=== PATIENT | male | born 1955 | race Caucasian/White ===

== ENCOUNTER 2016-07-07 12:25 | Emergency (ER) | payer BC ==
[2016-07-07 12:30] VITALS: TEMP 97.6
[2016-07-07] MEDS ORDERED: SODIUM CHLORIDE 0.9% 1,000 ML IV STA (12:45)
[2016-07-07] MEDS ORDERED: MAG HYDROX/AL HYDROX/SIMETH 30 ML, HYOSCYAMINE ELIXIR 10 ML, CIMETIDINE HCL 300 MG, LID... PO STA ×4 (12:46)
--- NOTE | 2016-07-07 12:49 | ED ---
Abdominal Pain HPI - General Chief Complaint: Abdominal Pain Stated Complaint: Indigestion Time Seen by Provider: 07/07/16 12:35 Source: patient Mode of arrival: ambulatory - History of Present Illness Initial Comments: This is a 60-year-old male with a benign past history who states he had the onset of indigestion-like pain short time after eating a breakfast this morning. This did include maurice and sausage. He states it radiates from his epigastrium up to his throat midsternal incision indigestion-like discomfort 8/ 10 severity he states been having symptoms on and off for the past week of this type of thing he was low short of breath with it no fevers chills sweats or other symptoms he has had no cough he states he gets somewhat worse with upright position. He has no personal history of heart lung or kidney or liver disease no gallbladder disease and he is aware of he is a nonsmoker does not drink alcohol very often does have a family history however his dad had a heart attack at 57 his mother at 86. MD Complaint: abdominal pain, other - Related Data Home Medications Medication Instructions Recorded Confirmed Simvastatin [Zocor] 20 mg PO HS 08/10/15 07/07/16 Cholecalciferol [Vitamin D3] 1,000 unit PO DAILY 07/07/16 07/07/16 Levothyroxine Sodium [Synthroid] 137 mcg PO DAILY 07/07/16 07/07/16 [place]-3 Fatty Acids/Fish Oil [Fish 1 cap PO DAILY 07/07/16 07/07/16 Oil 1,000 mg Softgel] Previous Rx's Medication Instructions Recorded Pantoprazole Sodium [Protonix] 40 mg PO DAILY #10 tablet. 07/07/16 Allergies Allergy/AdvReac Type Severity Reaction Status Date / Time No Known Allergies Allergy Verified 07/07/16 12:53 Review of Systems ROS Statement: Those systems with pertinent positive or pertinent negative responses have been documented in the HPI. ROS Other: All systems not noted in ROS Statement are negative. Past Medical History Past Medical History: Hyperlipidemia, Thyroid Disorder History of Any Multi-Drug Resistant Organisms: None Reported Past Surgical History: No Surgical Hx Reported Past Anesthesia/Blood Transfusion Reactions: No Reported Reaction Past Psychological History: No Psychological Hx Reported Smoking Status: Never smoker Past Alcohol Use History: Rare Past Drug Use History: None Reported - Past Family History Mother Family Medical History: Cancer Sister(s) Family Medical History: Cancer Daughter(s) Family Medical History: Deep Vein Thrombosis (DVT) General Exam - General Exam Comments Initial Comments: This is a well-developed well-nourished awake alert oriented x 3 male General appearance: alert, in no apparent distress Head exam: Present: atraumatic, normocephalic, normal inspection Eye exam: Present: normal appearance, PERRL, EOMI. Absent: scleral icterus, conjunctival injection, periorbital swelling ENT exam: Present: normal exam, mucous membranes moist Neck exam: Present: normal inspection. Absent: tenderness, meningismus, lymphadenopathy Respiratory exam: Present: normal lung sounds bilaterally. Absent: respiratory distress, wheezes, rales, rhonchi, stridor Cardiovascular Exam: Present: regular rate, normal rhythm, normal heart sounds. Absent: systolic murmur, diastolic murmur, rubs, gallop, clicks GI/Abdominal exam: Present: soft, tenderness (Epigastric tenderness palpation no guarding rebound masses or bruits), normal bowel sounds. Absent: distended, guarding, rebound, rigid Extremities exam: Present: normal inspection, full ROM, normal capillary refill. Absent: tenderness, pedal edema, joint swelling, calf tenderness Back exam: Present: normal inspection Neurological exam: Present: alert, oriented X3, CN II-XII intact Psychiatric exam: Present: normal affect, normal mood Skin exam: Present: warm, dry, intact, normal color. Absent: rash Course Vital Signs 07/07/16 07/07/16 12:27 14:14 Temperature 97.6 F Pulse Rate 101 H 88 Respiratory 22 18 Rate Blood Pressure 142/90 136/82 O2 Sat by Pulse 98 97 Oximetry - Reevaluation(s) Reevaluation #1: 07/07/16 14:36 Patient had complete relief after the GI cocktail. Medical Decision Making - Medical Decision Making I did a long discussion with the patient has regarding findings. Patient will be discharged with follow-up with his doctor did recommend an outpatient stress test did discuss the differential diagnosis for his pain which included a heart disease gallbladder and GI disease. - Lab Data Result diagrams: 07/07/16 12:35 07/07/16 12:35 Lab Results 07/07/16 07/07/16 07/07/16 Range/Units 12:35 12:35 12:35 WBC 5.6 (3.8-10.6) k/uL RBC 4.81 (4.30-5.90) m/uL Hgb 15.1 (13.0-17.5) gm/dL Hct 43.3 (39.0-53.0) % MCV 89.9 (80.0-100.0) fL MCH 31.3 (25.0-35.0) pg MCHC 34.8 (31.0-37.0) g/dL RDW 12.5 (11.5-15.5) % Plt Count 288 (150-450) k/uL Neutrophils % 59 % Lymphocytes % 28 % Monocytes % 6 % Eosinophils % 3 % Basophils % 1 % Neutrophils # 3.3 (1.3-7.7) k/uL Lymphocytes # 1.5 (1.0-4.8) k/uL Monocytes # 0.3 (0-1.0) k/uL Eosinophils # 0.2 (0-0.7) k/uL Basophils # 0.1 (0-0.2) k/uL Sodium 143 (137-145) mmol/L Potassium 4.6 (3.5-5.1) mmol/L Chloride 107 (98-107) mmol/L Carbon Dioxide 25 (22-30) mmol/L Anion Gap 11 mmol/L BUN 18 (9-20) mg/dL Creatinine 0.90 (0.66-1.25) mg/dL Est GFR (MDRD) Af Amer >60 (>60 ml/min/1.73 sqM) Est GFR (MDRD) Non-Af >60 (>60 ml/min/1.73 sqM) Glucose 119 H (74-99) mg/dL Calcium 9.9 (8.4-10.2) mg/dL Total Bilirubin 0.5 (0.2-1.3) mg/dL AST 37 (17-59) U/L ALT 62 (21-72) U/L Alkaline Phosphatase 54 (38-126) U/L Total Creatine Kinase 86 (55-170) U/L CK-MB (CK-2) 1.2 (0.0-2.4) ng/mL CK-MB (CK-2) Rel Index 1.4 Troponin I 0.019 (0.000-0.034) ng/mL Total Protein 7.1 (6.3-8.2) g/dL Albumin 4.2 (3.5-5.0) g/dL Amylase 82 (30-110) U/L Lipase 112 (23-300) U/L - EKG Data -: EKG Interpreted by Me EKG shows normal: sinus rhythm, axis, intervals, QRS complexes, ST-T waves (EKG shows a normal sinus rhythm rate of 96 NJ interval of 140 QRS duration 90 QT/ QTC of 350/442 st-t wave changes.) Rate: normal - Radiology Data Radiology results: report reviewed (X-rays were reviewed no acute findings.), image reviewed Disposition Clinical Impression: Abdominal pain, Gastritis Disposition: HOME SELF-CARE Condition: Good Instructions: Abdominal Pain (ED), Gastritis (ED) Prescriptions: Pantoprazole Sodium [Protonix] 40 mg PO DAILY #10 tablet.
--- NOTE | 2016-07-07 13:35 | XR ---
EXAMINATION TYPE: XR chest 2V DATE OF EXAM: 07/07/2016 1:25 PM COMPARISON: Prior chest x-ray November 06, 2012 HISTORY: Chest and abdominal pain TECHNIQUE: Frontal and lateral views of the chest are obtained. FINDINGS: There is no focal air space opacity, pleural effusion, or pneumothorax seen. The cardiac silhouette size is within normal limits. The osseous structures are intact. IMPRESSION: No acute cardiopulmonary process. No significant change from prior.
--- NOTE | 2016-07-07 13:37 | XR ---
EXAMINATION TYPE: XR KUB DATE OF EXAM: 07/07/2016 1:25 PM CLINICAL HISTORY: Mid abdominal pain radiating to lower chest for 2 hours after eating. TECHNIQUE: 2 upright KUB images of the abdomen are obtained COMPARISON: None. FINDINGS: Scattered gas is seen in non-distended small bowel loops. Gas and fecal material is seen in non-distended colon and rectum. There is no visceromegaly, pneumoperitoneum, or abnormal calcifi cation appreciated. The lung bases are clear. Mild joint space loss and spurring in both hip joints is redemonstrated. IMPRESSION: Overall nonobstructive bowel gas pattern.
[2016-07-07 13:43] LABS: Basophils # (A) 0.1 k/uL (0-0.2); Basophils % (A) 1 %; CH 31.7; CHCM 35.4; Eosinophils # (A) 0.2 k/uL (0-0.7); Eosinophils % (A) 3 %; HCT 43.3 % (39.0-53.0); HDW 2.53; HGB 15.1 gm/dL (13.0-17.5); Luc % (Auto) 4; Lymphocytes # (A) 1.5 k/uL (1.0-4.8); Lymphocytes % (A) 28 %; MCH 31.3 pg (25.0-35.0); MCHC 34.8 g/dL (31.0-37.0); MCV 89.9 fL (80.0-100.0); Mean Platelet Volume 7.4; Monocytes # (A) 0.3 k/uL (0-1.0); Monocytes % (A) 6 %; Neutrophils # (A) 3.3 k/uL (1.3-7.7); Neutrophils % (A) 59 %; RBC 4.81 m/uL (4.30-5.90); RDW 12.5 % (11.5-15.5); WBC 5.6 k/uL (3.8-10.6); WBC (Perox) 5.47
[2016-07-07 13:55] LABS: ALT 62 U/L (21-72); AST 37 U/L (17-59); Alkaline Phosphatase 54 U/L (38-126); Amylase 82 U/L (30-110); Anion Gap 11 mmol/L; Blood Urea Nitrogen 18 mg/dL (9-20); Calcium 9.9 mg/dL (8.4-10.2); Carbon Dioxide 25 mmol/L (22-30); Chloride 107 mmol/L (98-107); Glucose 119 mg/dL (74-99); Non-African American GFR(MDRD) >60 (>60 ml/min/1.73 sqM); Sodium 143 mmol/L (137-145); Total Bilirubin 0.5 mg/dL (0.2-1.3); Total Protein 7.1 g/dL (6.3-8.2)
[2016-07-07 14:05] LABS: Potassium 4.6 mmol/L (3.5-5.1)
[2016-07-07 14:11] LABS: Creatine Kinase MB 1.2 ng/mL (0.0-2.4)
[2016-07-07 14:15] VITALS: RESP 18
[2016-07-07 14:15] LABS: Troponin I 0.019 ng/mL (0.000-0.034)
[2016-07-07 14:51] VITALS: BP 125/79; PULSE 83
== END 2016-07-07 14:51 | disposition home or self-care (01) ==
LOC: EC 12:25
DX: K29.70 Gastritis, unspecified, without bleeding (principal); E78.5 Hyperlipidemia, unspecified; E07.9 Disorder of thyroid, unspecified; Z79.899 Other long term (current) drug therapy
CPT/HCPCS: 36415; 71020; 74000; 80053; 82150; 82550; 82553; 83690; 84484; 85025; 93005; 96360; 96361; 99284

== ENCOUNTER → 2016-07-25 | Outpatient (CLI) | payer BC | LOC: LABWHC1 14:13 | PROVIDERS: ATTEND Family Medicine | DX: R07.9 Chest pain, unspecified (principal) | CPT/HCPCS: 36415; 83090; 84439; 84443; 85384; 86141 ==

== ENCOUNTER → 2016-07-31 | Outpatient (CLI) | payer BC ==
--- NOTE | 2016-07-31 10:51 | NM ---
EXAMINATION TYPE: NM stress cardiolite complete DATE OF EXAM: 07/31/2016 10:38 AM COMPARISON: 05/31/2008 HISTORY: 60 year-old male chest pain, family history of ischemic heart disease. TECHNIQUE: After the intravenous administration of 10.8 mCi Tc 99m Sestamibi - Rest images obtained 45 minutes post injection. The patient exercised using a AILEEN protocol and 1 minute prior to peak exercise was injected with 27.5 mCi Tc 99m Sestamibi - Stress images obtained 10 minutes post injecti on. FINDINGS: Targeted heart rate was achieved during performance of the study. Review of stress and rest SPECT [email or web address] ges demonstrates no distinct perfusion abnormality. Gated analysis shows normal wall motion with an estimated left ventricular ejection fraction of 60 %.TID is calculated at 0.81, within normal limits. Polar maps are normal. IMPRESSION: No scintigraphic evidence for reversible ischemia
--- NOTE | 2016-07-31 11:21 | EST ---
DATE OF SERVICE: 07/31/2016 AGE: 60Y SEX: M HT: 6' WT: 198 lbs. Protocol Kobe: X Other: Stage: II Dur. of Exercise: 6:30 *Heart Rate Blood Pressure *Rest: 79 Rest: 142/94 * *Max. Achieved: 140 Maximum BP: 162/68 85% PMHR: 134 100% PMHR: 158 *METS: 7.1 INDICATIONS: Chest pain. MEDICATIONS: Patient was exercised for a total period of 6 minutes and 30 seconds. Peak heart rate of 140 was achieved. Maximum blood pressure of 162/68 mmHg is noted. The patient did not complain of any chest pain during the test. Resting EKG shows normal sinus rhythm, R wave noted in V1 and V2. No ST segment depression suggestive of ischemia is noted. ( ) PVCs were noted. The patient did not complain of any chest pain during the test. FINAL IMPRESSION: 1. This exercise EKG is not suggestive of ischemia. 2. Patient's exercise tolerance is average. 3. Occasional premature ventricular contractions were noted. 4. Patient did not complain of any chest pain during the test. 5. The results of the nuclear study will follow.
== END | disposition home or self-care (01) ==
LOC: RADNMMAIN 08:33
PROVIDERS: ATTEND Family Medicine
DX: I49.3 Ventricular premature depolarization (principal); K21.9 Gastro-esophageal reflux disease without esophagitis; R07.9 Chest pain, unspecified; Z82.49 Family history of ischemic heart disease and other diseases of the circulatory system
CPT/HCPCS: 93017; 78452; A9500

== ENCOUNTER 2016-09-28 10:43 | Emergency (ER) | payer BC ==
--- NOTE | 2016-09-28 11:08 | ED ---
General Adult HPI - General Chief complaint: Chest Pain Stated complaint: SOB/Dizziness Time Seen by Provider: 09/28/16 10:45 Source: patient, RN notes reviewed, old records reviewed Mode of arrival: wheelchair Limitations: no limitations - History of Present Illness Initial comments: This is a 60-year-old male here for evaluation of chest pain shortness of breath. An 8 assertion no episode of dyspnea. Patient has medical history of a similar issue in the past with unknown cause. Patient has no heart disease or risk factors of heart disease has had stressing Heart catheterizations in the past have been normal. Patient states he was doing some physical exertion, more than normal D fence posts and became short of breath with chest pain. This time patient's symptoms are resolved. He denies any other complaints. - Related Data Home Medications Medication Instructions Recorded Confirmed Cholecalciferol [Vitamin D3] 1,000 unit PO DAILY 07/07/16 09/28/16 Levothyroxine Sodium [Synthroid] 137 mcg PO DAILY 07/07/16 09/28/16 [place]-3 Fatty Acids/Fish Oil [Fish 1 cap PO DAILY 07/07/16 09/28/16 Oil 1,000 mg Softgel] Esomeprazole Magnesium [NexIUM 22.3 mg PO DAILY 09/28/16 09/28/16 24Hr] Garlic 1 tab PO DAILY 09/28/16 09/28/16 Allergies Allergy/AdvReac Type Severity Reaction Status Date / Time No Known Allergies Allergy Verified 09/28/16 13:13 Review of Systems ROS Statement: Those systems with pertinent positive or pertinent negative responses have been documented in the HPI. ROS Other: All systems not noted in ROS Statement are negative. Past Medical History Past Medical History: Hyperlipidemia, Thyroid Disorder History of Any Multi-Drug Resistant Organisms: None Reported Past Surgical History: No Surgical Hx Reported Past Anesthesia/Blood Transfusion Reactions: No Reported Reaction Past Psychological History: No Psychological Hx Reported Smoking Status: Never smoker Past Alcohol Use History: Rare Past Drug Use History: None Reported - Past Family History Mother Family Medical History: Cancer Sister(s) Family Medical History: Cancer Daughter(s) Family Medical History: Deep Vein Thrombosis (DVT) General Exam Limitations: no limitations General appearance: alert, in no apparent distress Head exam: Present: atraumatic, normocephalic, normal inspection Eye exam: Present: normal appearance, PERRL, EOMI. Absent: scleral icterus, conjunctival injection, periorbital swelling ENT exam: Present: normal exam, mucous membranes moist Neck exam: Present: normal inspection. Absent: tenderness, meningismus, lymphadenopathy Respiratory exam: Present: normal lung sounds bilaterally. Absent: respiratory distress, wheezes, rales, rhonchi, stridor Cardiovascular Exam: Present: regular rate, normal rhythm, normal heart sounds. Absent: systolic murmur, diastolic murmur, rubs, gallop, clicks GI/Abdominal exam: Present: soft, normal bowel sounds. Absent: distended, tenderness, guarding, rebound, rigid Extremities exam: Present: normal inspection, full ROM, normal capillary refill. Absent: tenderness, pedal edema, joint swelling, calf tenderness Back exam: Present: normal inspection Neurological exam: Present: alert, oriented X3, CN II-XII intact Psychiatric exam: Present: normal affect, normal mood Skin exam: Present: warm, dry, intact, normal color. Absent: rash Course Vital Signs 09/28/16 09/28/16 09/28/16 11:01 11:30 13:28 Temperature 97.7 F Pulse Rate 87 73 74 Respiratory 20 20 18 Rate Blood Pressure 144/72 129/79 133/79 O2 Sat by Pulse 100 100 100 Oximetry - Reevaluation(s) Reevaluation #1: 09/28/16 14:45 Patient is asymptomatic throughout entire ER stay, states after rest he felt fine EKG Findings - EKG Comments: EKG Findings:: EKG shows a sinus rhythm rate of 82, MO 140, QRS 90, QTc 464 Medical Decision Making - Medical Decision Making 60 mallei are for evaluation. Patient is here for evaluation of chest pain exertional dyspnea. Patient is a asymptomatic throughout entire ER stay, laboratory is normal EKG negative and CT is negative for PE. Patient will be discharged - Lab Data Result diagrams: 09/28/16 11:25 09/28/16 11:25 Lab Results 09/28/16 09/28/16 09/28/16 Range/Units 11:25 11:25 11:25 WBC 6.5 (3.8-10.6) k/uL RBC 4.95 (4.30-5.90) m/uL Hgb 15.4 (13.0-17.5) gm/dL Hct 44.4 (39.0-53.0) % MCV 89.6 (80.0-100.0) fL MCH 31.2 (25.0-35.0) pg MCHC 34.8 (31.0-37.0) g/dL RDW 12.8 (11.5-15.5) % Plt Count 290 (150-450) k/uL Neutrophils % 62 % Lymphocytes % 29 % Monocytes % 4 % Eosinophils % 2 % Basophils % 1 % Neutrophils # 4.0 (1.3-7.7) k/uL Lymphocytes # 1.9 (1.0-4.8) k/uL Monocytes # 0.2 (0-1.0) k/uL Eosinophils # 0.2 (0-0.7) k/uL Basophils # 0.0 (0-0.2) k/uL PT (9.0-12.0) sec INR (<1.1) APTT (22.0-30.0) sec D-Dimer (<0.60) mg/L FEU Sodium 143 (137-145) mmol/L Potassium 4.0 (3.5-5.1) mmol/L Chloride 107 (98-107) mmol/L Carbon Dioxide 25 (22-30) mmol/L Anion Gap 11 mmol/L BUN 15 (9-20) mg/dL Creatinine 1.00 (0.66-1.25) mg/dL Est GFR (MDRD) Af Amer >60 (>60 ml/min/1.73 sqM) Est GFR (MDRD) Non-Af >60 (>60 ml/min/1.73 sqM) Glucose 97 (74-99) mg/dL Calcium 10.4 H (8.4-10.2) mg/dL Phosphorus 1.5 L (2.5-4.5) mg/dL Magnesium 2.1 (1.6-2.3) mg/dL Total Bilirubin 0.7 (0.2-1.3) mg/dL AST 43 (17-59) U/L ALT 65 (21-72) U/L Alkaline Phosphatase 70 (38-126) U/L Total Creatine Kinase 115 (55-170) U/L CK-MB (CK-2) 1.4 (0.0-2.4) ng/mL CK-MB (CK-2) Rel Index 1.2 Troponin I <0.012 (0.000-0.034) ng/mL Total Protein 7.6 (6.3-8.2) g/dL Albumin 4.8 (3.5-5.0) g/dL Lipase (23-300) U/L 09/28/16 09/28/16 09/28/16 Range/Units 11:25 11:25 11:25 WBC (3.8-10.6) k/uL RBC (4.30-5.90) m/uL Hgb (13.0-17.5) gm/dL Hct (39.0-53.0) % MCV (80.0-100.0) fL MCH (25.0-35.0) pg MCHC (31.0-37.0) g/dL RDW (11.5-15.5) % Plt Count (150-450) k/uL Neutrophils % % Lymphocytes % % Monocytes % % Eosinophils % % Basophils % % Neutrophils # (1.3-7.7) k/uL Lymphocytes # (1.0-4.8) k/uL Monocytes # (0-1.0) k/uL Eosinophils # (0-0.7) k/uL Basophils # (0-0.2) k/uL PT 10.3 (9.0-12.0) sec INR 1.0 (<1.1) APTT 23.1 (22.0-30.0) sec D-Dimer 0.81 H (<0.60) mg/L FEU Sodium (137-145) mmol/L Potassium (3.5-5.1) mmol/L Chloride (98-107) mmol/L Carbon Dioxide (22-30) mmol/L Anion Gap mmol/L BUN (9-20) mg/dL Creatinine (0.66-1.25) mg/dL Est GFR (MDRD) Af Amer (>60 ml/min/1.73 sqM) Est GFR (MDRD) Non-Af (>60 ml/min/1.73 sqM) Glucose (74-99) mg/dL Calcium (8.4-10.2) mg/dL Phosphorus (2.5-4.5) mg/dL Magnesium (1.6-2.3) mg/dL Total Bilirubin (0.2-1.3) mg/dL AST (17-59) U/L ALT (21-72) U/L Alkaline Phosphatase (38-126) U/L Total Creatine Kinase (55-170) U/L CK-MB (CK-2) (0.0-2.4) ng/mL CK-MB (CK-2) Rel Index Troponin I (0.000-0.034) ng/mL Total Protein (6.3-8.2) g/dL Albumin (3.5-5.0) g/dL Lipase 119 (23-300) U/L - Radiology Data Radiology results: report reviewed (Chest x-ray CTA chest and pelvis negative for acute disease), image reviewed Disposition Clinical Impression: Chest pain Disposition: HOME SELF-CARE Condition: Good Instructions: Chest Pain (ED) Referrals: Neida Rodriguez III, MD [Primary Care Provider] - 1-2 days
[2016-09-28] MEDS ORDERED: SODIUM CHLORIDE 0.9% 500 ML IV STA (11:19)
[2016-09-28 11:39] LABS: Basophils % (A) 1 %; CH 31.6; CHCM 35.5; Eosinophils # (A) 0.2 k/uL (0-0.7); Eosinophils % (A) 2 %; HCT 44.4 % (39.0-53.0); HDW 2.54; HGB 15.4 gm/dL (13.0-17.5); Luc # (Auto) 0.21; Luc % (Auto) 3; Lymphocytes # (A) 1.9 k/uL (1.0-4.8); Lymphocytes % (A) 29 %; MCH 31.2 pg (25.0-35.0); MCHC 34.8 g/dL (31.0-37.0); MCV 89.6 fL (80.0-100.0); Mean Platelet Volume 6.6; Monocytes # (A) 0.2 k/uL (0-1.0); Monocytes % (A) 4 %; Neutrophils % (A) 62 %; RBC 4.95 m/uL (4.30-5.90); RDW 12.8 % (11.5-15.5); WBC 6.5 k/uL (3.8-10.6); WBC (Perox) 6.19
[2016-09-28 11:50] LABS: ALT 65 U/L (21-72); AST 43 U/L (17-59); Alkaline Phosphatase 70 U/L (38-126); Anion Gap 11 mmol/L; Blood Urea Nitrogen 15 mg/dL (9-20); Calcium 10.4 mg/dL (8.4-10.2); Carbon Dioxide 25 mmol/L (22-30); Chloride 107 mmol/L (98-107); Glucose 97 mg/dL (74-99); Magnesium 2.1 mg/dL (1.6-2.3); Non-African American GFR(MDRD) >60 (>60 ml/min/1.73 sqM); Phosphorous 1.5 mg/dL (2.5-4.5); Sodium 143 mmol/L (137-145); Total Bilirubin 0.7 mg/dL (0.2-1.3); Total Protein 7.6 g/dL (6.3-8.2)
[2016-09-28 11:59] LABS: Creatine Kinase 115 U/L (55-170)
--- NOTE | 2016-09-28 12:08 | XR ---
EXAMINATION TYPE: XR chest 2V DATE OF EXAM: 09/28/2016 COMPARISON: 07/07/2016 HISTORY: Shortness of breath TECHNIQUE: Frontal and lateral views of the chest are obtained. FINDINGS: Scattered senescent parenchymal changes noted. Hyperinflation compatible with COPD. No evidence for infiltrate. No evidence for atelectasis. Heart size is stable. Mediastinal structures are stable and grossly unremarkable. No evidence for hilar prominence. Degenerative changes dorsal spine. IMPRESSION: 1. No evidence for acute pulmonary disease.
[2016-09-28 12:13] LABS: Creatine Kinase MB 1.4 ng/mL (0.0-2.4); Troponin I <0.012 ng/mL (0.000-0.034)
[2016-09-28] MEDS ORDERED: RX INFO: IV CONTRAST WAS GIVEN 1 EACH MISC MISCELLANE PRN (12:23)
[2016-09-28 12:26] LABS: Partial Thromboplastin Time 23.1 sec (22.0-30.0); Prothrombin Time 10.3 sec (9.0-12.0)
[2016-09-28 13:29] VITALS: RESP 18
--- NOTE | 2016-09-28 13:45 | CT ---
EXAMINATION TYPE: CT angio chest DATE OF EXAM: 09/28/2016 COMPARISON: NONE HISTORY: SOB and Dizziness CT DLP: 1087.70 mGycm CONTRAST: CT chest with contrast and 3D reconstruction with MIP imaging is performed with IV Contrast, patient injected with 100 ml mL of Omnipaque 350. Contrast-enhanced CT of the chest was performed through the course of the pulmonary arteries with nirav g and mediastinal window settings submitted. 3D reconstruction with MIP imaging was also performed. PULMONARY ARTERIES: The pulmonary arteries and their major tributaries are patent. I do not see bonnie dence for sizable filling defect to suggest pulmonary embolic process. LUNGS: The lungs are clear and free of infiltrate. No evidence for atelectasis. No pulmonary nodule or mass is detected. No pleural effusion. MEDIASTINUM: Thoracic aorta is of normal caliber . The heart is not enlarged. No evidence for media stinal mass. No mediastinal lymph nodes greater than 1cm. HILAR STRUCTURES: No evidence for mass. No hilar lymph nodes greater than 1 cm. UPPER ABDOMEN: No significant abnormality is seen. IMPRESSION: 1. No evidence for Pulmonary embolism at this time.
--- NOTE | 2016-09-28 13:48 | CT ---
EXAMINATION TYPE: CT abdomen pelvis w con DATE OF EXAM: 09/28/2016 COMPARISON: NONE HISTORY: SOB and Dizziness. Abdominal pain. CT DLP: 1087.70 mGycm CONTRAST: CT scan of the abdomen and pelvis is performed without Oral Contrast and with IV Contrast, patient in jected with 100 ml mL of Omnipaque 350. FINDINGS: LUNG BASES-: No visible nodule. No infiltrate. LIVER/GB: There are 2 small gallstone noted within the gallbladder. There is mild hepatic steatosi s. No space occupying hepatic lesion. Biliary tree is of normal caliber. PANCREAS: No inflammation. No distinct mass. SPLEEN: No splenic enlargement. No lesion seen. ADRENALS: No nodule. No thickening. KIDNEYS/BLADDER: No hydronephrosis. No nephrolithiasis. No disctinct solid renal mass. 1 cm simple cyst upper pole left kidney. Urinary bladder grossly unremarkable. BOWEL: Normal appendix. Normal bowel caliber. No inflammation. Diverticulosis without diverticuliti s. GENITAL ORGANS: No gross abnormality. LYMPH NODES: No greater than 1cm abdominal or pelvic lymph nodes are appreciated. AORTA: No significant abnormality. OSSEOUS STRUCTURES: No significant abnormality is seen. OTHER: No significant additional abnormality is seen. IMPRESSION: 1. Uncomplicated cholelithiasis. 2. Sigmoid diverticulosis without diverticulitis. 3. Hepatic steatosis. 4. Left renal cyst.
[2016-09-28 15:00] VITALS: BP 127/84; PULSE 75; TEMP 97.6
== END 2016-09-28 15:00 | disposition home or self-care (01) ==
LOC: EC 10:43
DX: R07.9 Chest pain, unspecified (principal); R06.02 Shortness of breath; E07.9 Disorder of thyroid, unspecified; Z79.899 Other long term (current) drug therapy
CPT/HCPCS: 36415; 93005; 85379; 80053; 82550; 82553; 83690; 83735; 84100; 84484; 85025; 85610; 85730; 71020; 71275; 74177; 99285; Q9967

== ENCOUNTER 2016-10-01 21:48 | Emergency (ER) | payer BC ==
[2016-10-01 21:53] VITALS: BP 125/81; PULSE 75; RESP 18; TEMP 98.2
--- NOTE | 2016-10-01 22:14 | ED ---
Skin/Abscess/FB HPI - General Chief complaint: Skin/Abscess/Foreign Body Stated complaint: IV site concerns-revisit Time Seen by Provider: 10/01/16 22:10 Source: patient, RN notes reviewed Mode of arrival: ambulatory Limitations: no limitations - History of Present Illness Initial comments: 60-year-old male presents emergency Department chief complaint left arm pain and swelling. Patient states she was in the hospital on Friday had an IV in his left ac. Patient states he noticed a bruise shortly after and did not think much of it though he had increase pain, swelling and some redness the area. Patient states that there is a hard lump around IV site. Patient denies any fever, chills. Denies any arm paresthesias and denies any weakness. - Related Data Home Medications Medication Instructions Recorded Confirmed Cholecalciferol [Vitamin D3] 1,000 unit PO DAILY 07/07/16 10/01/16 Levothyroxine Sodium [Synthroid] 137 mcg PO DAILY 07/07/16 10/01/16 [place]-3 Fatty Acids/Fish Oil [Fish 1 cap PO DAILY 07/07/16 10/01/16 Oil 1,000 mg Softgel] Esomeprazole Magnesium [NexIUM 22.3 mg PO DAILY 09/28/16 10/01/16 24Hr] Garlic 1 tab PO DAILY 09/28/16 10/01/16 Allergies Allergy/AdvReac Type Severity Reaction Status Date / Time No Known Allergies Allergy Verified 10/01/16 21:53 Review of Systems ROS Statement: Those systems with pertinent positive or pertinent negative responses have been documented in the HPI. ROS Other: All systems not noted in ROS Statement are negative. Past Medical History Past Medical History: Hyperlipidemia, Thyroid Disorder History of Any Multi-Drug Resistant Organisms: None Reported Past Surgical History: No Surgical Hx Reported Past Anesthesia/Blood Transfusion Reactions: No Reported Reaction Past Psychological History: No Psychological Hx Reported Smoking Status: Never smoker Past Alcohol Use History: Rare Past Drug Use History: None Reported - Past Family History Mother Family Medical History: Cancer Sister(s) Family Medical History: Cancer Daughter(s) Family Medical History: Deep Vein Thrombosis (DVT) General Exam Limitations: no limitations General appearance: alert, in no apparent distress Neck exam: Present: normal inspection. Absent: tenderness, meningismus, lymphadenopathy Respiratory exam: Present: normal lung sounds bilaterally. Absent: respiratory distress, wheezes, rales, rhonchi, stridor Cardiovascular Exam: Present: regular rate, normal rhythm, normal heart sounds. Absent: systolic murmur, diastolic murmur, rubs, gallop, clicks Extremities exam: Present: other (Left antecubital fossa there is an area of ecchymosis with extending erythema distally of the left arm there is minimal warmth mild tenderness that region pulses are equal bilaterally) Course Vital Signs 10/01/16 21:51 Temperature 98.2 F Pulse Rate 75 Respiratory 18 Rate Blood Pressure 125/81 O2 Sat by Pulse 96 Oximetry Medical Decision Making - Medical Decision Making 60-year-old male present emergency from for redness run IV started. Patient has superficial thrombophlebitis. There is no evidence of cellulitis. Patient be treated warm compresses and anti-inflammatories. Return parameters were discussed. No evidence of acute DVT. Disposition Clinical Impression: Superficial thrombophlebitis of left upper extremity Disposition: HOME SELF-CARE Condition: Stable Instructions: Superficial Thrombophlebitis (ED) Additional Instructions: Please return to the Emergency Department if symptoms worsen or any other concerns. Referrals: Neida Rodriguez III, MD [Primary Care Provider] - 1-2 days Time of Disposition: 22:56
--- NOTE | 2016-10-01 23:19 | US ---
EXAM: US Duplex Left Upper Extremity Veins CLINICAL HISTORY: Reason: Pain TECHNIQUE: Real-time ultrasound scan of the veins of the left upper extremity with color Doppler flow, spectral waveform analysis and compression. COMPARISON: No relevant prior studies available. FINDINGS: Deep veins: Unremarkable. No DVT in the internal jugular, subclavian, axillary, or brachial veins. The veins are compressible with normal color flow and augmentation. Superficial veins: Superficial thrombophlebitis is seen within the left basilic vein. Soft tissues: Soft tissue swelling in the region of the thrombophlebitis. IMPRESSION: Superficial thrombophlebitis is seen within the left basilic vein. No evidence of deep venous thrombosis. [employer] 10/01/16 23:26 Verify Receipt Verified receipt with HESHAM DAIGLE in the Er @ 2024
== END 2016-10-01 23:01 | disposition home or self-care (01) ==
LOC: EC 21:48
DX: I80.8 Phlebitis and thrombophlebitis of other sites (principal); E07.9 Disorder of thyroid, unspecified; Z79.899 Other long term (current) drug therapy
CPT/HCPCS: 99283

== ENCOUNTER 2016-11-28 08:37 | Emergency (ER) | payer BC ==
[2016-11-28 08:45] VITALS: RESP 20; TEMP 98.5
[2016-11-28] MEDS ORDERED: SODIUM CHLORIDE 0.9% 1,000 ML IV STA (09:13)
--- NOTE | 2016-11-28 09:26 | ED ---
General Adult HPI - General Chief complaint: Headache Stated complaint: head pressure/left arm pain Time Seen by Provider: 11/28/16 08:50 Source: patient, RN notes reviewed Mode of arrival: ambulatory Limitations: no limitations - History of Present Illness Initial comments: Patient 60-year-old male who presents emergency room today with multiple complaints. He does admit that he had a CT performed with contrast approximately a month and a half ago. He states he was found to have gallstones and is scheduled to have surgery for this. He does admit that he had some complications from the IV site and believed to have possible infection. States was on antibiotics. States he had some redness swelling to the left arm. He states that he feels like over the last week she's noticed another area of redness to the left forearm. He states he's been experiencing some pain some discomfort now radiating up into the upper arm towards the axilla over the last 3-4 days. Patient also admits that since having this CAT scan a month and a half ago he's been experiencing some pressure in his head. He states it seems to move around a little. He states it was upfront. He states it's currently to the left side. States not tender on palpation. He states he does feel somewhat lightheaded at times as well. He denies any other complaints or symptoms. Patient denies any recent fever, chills, shortness of breath, chest pain, back pain, vomiting, numbness or tingling, dysuria or hematuria, constipation or diarrhea, visual changes, or any other complaints. - Related Data Home Medications Medication Instructions Recorded Confirmed Levothyroxine Sodium [Synthroid] 137 mcg PO DAILY 07/07/16 11/28/16 [place]-3 Fatty Acids/Fish Oil [Fish 1 cap PO DAILY 07/07/16 11/28/16 Oil 1,000 mg Softgel] Garlic 1 tab PO DAILY 09/28/16 11/28/16 Aspirin 81 mg PO DAILY 11/28/16 11/28/16 Omeprazole [PriLOSEC] 20 mg PO AC-BRKFST 11/28/16 11/28/16 Allergies Allergy/AdvReac Type Severity Reaction Status Date / Time Iodinated Contrast- Oral and Allergy Swelling Verified 11/28/16 10:43 IV Dye Review of Systems ROS Statement: Those systems with pertinent positive or pertinent negative responses have been documented in the HPI. ROS Other: All systems not noted in ROS Statement are negative. Past Medical History Past Medical History: Hyperlipidemia, Thyroid Disorder History of Any Multi-Drug Resistant Organisms: None Reported Past Surgical History: No Surgical Hx Reported Past Anesthesia/Blood Transfusion Reactions: No Reported Reaction Past Psychological History: No Psychological Hx Reported Smoking Status: Never smoker Past Alcohol Use History: Rare Past Drug Use History: None Reported - Past Family History Mother Family Medical History: Cancer Sister(s) Family Medical History: Cancer Daughter(s) Family Medical History: Deep Vein Thrombosis (DVT) General Exam - General Exam Comments Initial Comments: General: The patient is awake and alert, in no distress, and does not appear acutely ill. Eye: Pupils are equal, round and reactive to light, extra-ocular movements are intact. No nystagmus. There is normal conjunctiva bilaterally. No signs of icterus. Ears, nose, mouth and throat: There are moist mucous membranes and no oral lesions. No tenderness over the temporal areas. Neck: The neck is supple, there is no tenderness or JVD. Cardiovascular: There is a regular rate and rhythm. No murmur, rub or gallop is appreciated. Respiratory: Lungs are clear to auscultation, respirations are non-labored, breath sounds are equal. No wheezes, stridor, rales, or rhonchi. Gastrointestinal: Soft, non-distended, non-tender abdomen without masses or organomegaly noted. There is no rebound or guarding present. No CVA tenderness. Bowel sounds are unremarkable. Musculoskeletal: Normal ROM, no tenderness. Strength 5/5. Sensation intact. Pulses equal bilaterally 2+. Neurological: A&O x 3. CN II-XII intact, There are no obvious motor or sensory deficits. Coordination appears grossly intact. Speech is normal. Skin: Skin is warm and dry and no rashes or lesions are noted. Psychiatric: Cooperative, appropriate mood & affect, normal judgment. Limitations: no limitations Course Vital Signs 11/28/16 08:39 Temperature 98.5 F Pulse Rate 86 Respiratory 20 Rate Blood Pressure 118/82 O2 Sat by Pulse 98 Oximetry Medical Decision Making - Medical Decision Making Patient's CT of the head negative. Patient's labs been reviewed are unremarkable. Patient ultrasound negative for any evidence of DVT. Results were discussed with the patient. Patient does have some mild redness to the left forearm. Was discussed about possible phlebitis. Options of using steroid were discussed with patient. He has declined. Patient will be discharged home and advised follow-up with his family doctor over the next 2 days. Advised to continue to increase oral fluids. Advised to return to emergency room symptoms increase worsen or for any other concerns. - Lab Data Result diagrams: 11/28/16 09:28 11/28/16 09:28 Lab Results 11/28/16 11/28/16 11/28/16 Range/Units 09:28 09:28 09:28 WBC 4.1 (3.8-10.6) k/uL RBC 4.72 (4.30-5.90) m/uL Hgb 14.6 (13.0-17.5) gm/dL Hct 41.5 (39.0-53.0) % MCV 87.9 (80.0-100.0) fL MCH 30.9 (25.0-35.0) pg MCHC 35.1 (31.0-37.0) g/dL RDW 12.7 (11.5-15.5) % Plt Count 286 (150-450) k/uL Neutrophils % 68 % Lymphocytes % 23 % Monocytes % 4 % Eosinophils % 2 % Basophils % 1 % Neutrophils # 2.8 (1.3-7.7) k/uL Lymphocytes # 0.9 L (1.0-4.8) k/uL Monocytes # 0.2 (0-1.0) k/uL Eosinophils # 0.1 (0-0.7) k/uL Basophils # 0.0 (0-0.2) k/uL PT (9.0-12.0) sec INR (<1.2) APTT (22.0-30.0) sec Sodium 142 (137-145) mmol/L Potassium 4.1 (3.5-5.1) mmol/L Chloride 109 H (98-107) mmol/L Carbon Dioxide 22 (22-30) mmol/L Anion Gap 11 mmol/L BUN 15 (9-20) mg/dL Creatinine 0.86 (0.66-1.25) mg/dL Est GFR (MDRD) Af Amer >60 (>60 ml/min/1.73 sqM) Est GFR (MDRD) Non-Af >60 (>60 ml/min/1.73 sqM) Glucose 104 H (74-99) mg/dL Calcium 9.3 (8.4-10.2) mg/dL Total Bilirubin 0.6 (0.2-1.3) mg/dL AST 32 (17-59) U/L ALT 47 (21-72) U/L Alkaline Phosphatase 52 (38-126) U/L Total Creatine Kinase 98 (55-170) U/L CK-MB (CK-2) 1.4 (0.0-2.4) ng/mL CK-MB (CK-2) Rel Index 1.4 Troponin I <0.012 (0.000-0.034) ng/mL Total Protein 6.7 (6.3-8.2) g/dL Albumin 4.1 (3.5-5.0) g/dL 11/28/16 Range/Units 09:28 WBC (3.8-10.6) k/uL RBC (4.30-5.90) m/uL Hgb (13.0-17.5) gm/dL Hct (39.0-53.0) % MCV (80.0-100.0) fL MCH (25.0-35.0) pg MCHC (31.0-37.0) g/dL RDW (11.5-15.5) % Plt Count (150-450) k/uL Neutrophils % % Lymphocytes % % Monocytes % % Eosinophils % % Basophils % % Neutrophils # (1.3-7.7) k/uL Lymphocytes # (1.0-4.8) k/uL Monocytes # (0-1.0) k/uL Eosinophils # (0-0.7) k/uL Basophils # (0-0.2) k/uL PT 10.3 (9.0-12.0) sec INR 1.0 (<1.2) APTT 23.6 (22.0-30.0) sec Sodium (137-145) mmol/L Potassium (3.5-5.1) mmol/L Chloride (98-107) mmol/L Carbon Dioxide (22-30) mmol/L Anion Gap mmol/L BUN (9-20) mg/dL Creatinine (0.66-1.25) mg/dL Est GFR (MDRD) Af Amer (>60 ml/min/1.73 sqM) Est GFR (MDRD) Non-Af (>60 ml/min/1.73 sqM) Glucose (74-99) mg/dL Calcium (8.4-10.2) mg/dL Total Bilirubin (0.2-1.3) mg/dL AST (17-59) U/L ALT (21-72) U/L Alkaline Phosphatase (38-126) U/L Total Creatine Kinase (55-170) U/L CK-MB (CK-2) (0.0-2.4) ng/mL CK-MB (CK-2) Rel Index Troponin I (0.000-0.034) ng/mL Total Protein (6.3-8.2) g/dL Albumin (3.5-5.0) g/dL Disposition Clinical Impression: Headache, Phlebitis Disposition: HOME SELF-CARE Condition: Good Instructions: Acute Headache (ED) Additional Instructions: Continue warm compresses as discussed. Please follow-up with family doctor in the next 2 days of symptoms have not improved. Please return to emergency room if the symptoms increase or worsen or for any other concerns. Referrals: Neida Rodriguez III, MD [Primary Care Provider] - 1-2 days Time of Disposition: 11:40
[2016-11-28 09:50] LABS: Basophils % (A) 1 %; CH 30.9; CHCM 35.3; Eosinophils # (A) 0.1 k/uL (0-0.7); Eosinophils % (A) 2 %; HCT 41.5 % (39.0-53.0); HDW 2.57; HGB 14.6 gm/dL (13.0-17.5); Luc % (Auto) 2; Lymphocytes # (A) 0.9 k/uL (1.0-4.8); Lymphocytes % (A) 23 %; MCH 30.9 pg (25.0-35.0); MCHC 35.1 g/dL (31.0-37.0); MCV 87.9 fL (80.0-100.0); Mean Platelet Volume 6.5; Monocytes # (A) 0.2 k/uL (0-1.0); Monocytes % (A) 4 %; Neutrophils # (A) 2.8 k/uL (1.3-7.7); Neutrophils % (A) 68 %; RBC 4.72 m/uL (4.30-5.90); RDW 12.7 % (11.5-15.5); WBC 4.1 k/uL (3.8-10.6); WBC (Perox) 4.22
[2016-11-28 09:59] LABS: Partial Thromboplastin Time 23.6 sec (22.0-30.0); Prothrombin Time 10.3 sec (9.0-12.0)
[2016-11-28 10:03] LABS: ALT 47 U/L (21-72); AST 32 U/L (17-59); Alkaline Phosphatase 52 U/L (38-126); Anion Gap 11 mmol/L; Blood Urea Nitrogen 15 mg/dL (9-20); Calcium 9.3 mg/dL (8.4-10.2); Carbon Dioxide 22 mmol/L (22-30); Chloride 109 mmol/L (98-107); Glucose 104 mg/dL (74-99); Non-African American GFR(MDRD) >60 (>60 ml/min/1.73 sqM); Potassium 4.1 mmol/L (3.5-5.1); Sodium 142 mmol/L (137-145); Total Bilirubin 0.6 mg/dL (0.2-1.3); Total Protein 6.7 g/dL (6.3-8.2)
--- NOTE | 2016-11-28 10:08 | CT ---
EXAMINATION TYPE: CT brain wo con DATE OF EXAM: 11/28/2016 COMPARISON: 08/14/2015 INDICATION: Head pressure, confusion DLP: 981.7 mGycm, Automated exposure control for dose reduction was used. CONTRAST: None CT of the brain is performed utilizing 3 mm thick sections through the posterior fossa and 3 mm thick sections through the remaining calvarium. Study is performed within 24 hours of arrival to the hosp ital. No abnormal hyperdensity is present to suggest an acute intracranial hemorrhage. No mass lesion is evident. No acute infarcts are evident. Note is made of vascular calcification in the distal vertebral arterie s. Ventricles and sulci are appropriate for the patient age. Paranasal sinuses and mastoid air cells within the [id number] are clear. IMPRESSIONS: 1. No acute intracranial process.
[2016-11-28 10:32] LABS: Creatine Kinase 98 U/L (55-170)
[2016-11-28 10:44] LABS: Creatine Kinase MB 1.4 ng/mL (0.0-2.4); Troponin I <0.012 ng/mL (0.000-0.034)
--- NOTE | 2016-11-28 11:20 | US ---
EXAMINATION TYPE: US venous doppler duplex UE LT DATE OF EXAM: 11/28/2016 COMPARISON: NONE CLINICAL HISTORY: Pain. SIDE PERFORMED: Left arm Left internal jugular, visualized portions of the left subclavian, axillary and brachial veins show c ompressibility, no abnormal luminal echoes. Color flow is present. Cephalic and basilic veins are com pressible and patent. Color flow. Radial and ulnar veins also compressible and patent. Left Arm: Negative for DVT IMPRESSION: Grayscale, color doppler, spectral doppler imaging performed of the deep veins of the left upper extr emity. There is normal flow, compressibility and vascular waveforms. No evident deep venous thrombosis within the veins of the left upper extremity as visualized
[2016-11-28 11:56] VITALS: BP 147/80; PULSE 80
== END 2016-11-28 11:56 | disposition home or self-care (01) ==
LOC: EC 08:37
DX: R51 Headache (principal); I80.8 Phlebitis and thrombophlebitis of other sites; R42 Dizziness and giddiness; E07.9 Disorder of thyroid, unspecified; Z91.041 Radiographic dye allergy status; Z79.82 Long term (current) use of aspirin; Z79.899 Other long term (current) drug therapy
CPT/HCPCS: 36415; 70450; 80053; 82550; 82553; 84484; 85025; 85610; 85730; 93005; 96360; 96361; 99284

== ENCOUNTER → 2017-08-18 | Outpatient (CLI) | payer BC ==
--- NOTE | 2017-08-18 10:26 | MR ---
EXAMINATION TYPE: MR brain wo/w con DATE OF EXAM: 08/18/2017 COMPARISON: CT brain November 28, 2016 HISTORY: Dizziness/Visual disturbance TECHNIQUE: Multiplanar, multisequence images of the brain and brainstem is performed without and with IV contras t, utilizing 7.5 mL intravenous Gadavist . FINDINGS: Diffusion weighted images demonstrate no evidence of a recent infarct or other diffusion ab normality. There is no extra-axial fluid collection or significant white matter signal abnormality. The ventricular system and cisternal spaces are normal in size and appearance. The brain volume is age appropriate. Midline structures demonstrate normal morphology. The craniocervical junction appears within normal limits. Post contrast images demonstrate no abnormal enhancement. Slight prominence of basilar tip a xial image 11 is noted. The dural venous sinuses appear patent. The visualized sinuses are clear. The globes are intact bilaterally. No suspicious fluid signal seen in mastoid air cells bilaterally IMPRESSION: No significant finding is seen to account for patient's symptoms.
== END | disposition home or self-care (01) ==
LOC: RADMRIMAIN 08:08
PROVIDERS: ATTEND Family Medicine
DX: R42 Dizziness and giddiness (principal); H53.9 Unspecified visual disturbance; Z00.01 Encounter for general adult medical examination with abnormal findings
CPT/HCPCS: 82565; 70553; A9581

== ENCOUNTER 2017-11-10 09:31 | Emergency (ER) | payer BC ==
[2017-11-10] MEDS ORDERED: SODIUM CHLORIDE 0.9% 1,000 ML IV STA ×2 (09:50)
[2017-11-10] MEDS ORDERED: FAMOTIDINE 20 MG/2 ML VIAL IV STA (09:53)
[2017-11-10] MEDS ORDERED: diphenhydrAMINE 50 MG/ML 1 ML VIAL IVP STA (09:53)
[2017-11-10] MEDS ORDERED: methylPREDNISolone SOD SUCCI 125 MG/2 ML VIAL IV STA (09:53)
[2017-11-10 10:21] LABS: Basophils % (A) 1 %; Eosinophils # (A) 0.2 k/uL (0-0.7); Eosinophils % (A) 3 %; HCT 42.9 % (39.0-53.0); HGB 14.9 gm/dL (13.0-17.5); Lymphocytes # (A) 1.5 k/uL (1.0-4.8); Lymphocytes % (A) 26 %; MCH 30.7 pg (25.0-35.0); MCHC 34.8 g/dL (31.0-37.0); MCV 88.2 fL (80.0-100.0); Mean Platelet Volume 6.4; Monocytes # (A) 0.3 k/uL (0-1.0); Monocytes % (A) 6 %; Neutrophils # (A) 3.4 k/uL (1.3-7.7); Neutrophils % (A) 62 %; Platelet Count 260 k/uL (150-450); RBC 4.86 m/uL (4.30-5.90); RDW 12.5 % (11.5-15.5); WBC 5.5 k/uL (3.8-10.6)
[2017-11-10 10:30] LABS: ALT 47 U/L (21-72); AST 38 U/L (17-59); Albumin 4.5 g/dL (3.5-5.0); Alkaline Phosphatase 57 U/L (38-126); Anion Gap 10 mmol/L; Blood Urea Nitrogen 14 mg/dL (9-20); Calcium 9.5 mg/dL (8.4-10.2); Carbon Dioxide 24 mmol/L (22-30); Chloride 107 mmol/L (98-107); Glucose 100 mg/dL (74-99); Potassium 4.1 mmol/L (3.5-5.1); Prothrombin Time 10.1 sec (9.0-12.0); Sodium 141 mmol/L (137-145); Total Bilirubin 0.7 mg/dL (0.2-1.3); Total Protein 6.9 g/dL (6.3-8.2)
--- NOTE | 2017-11-10 10:33 | ED ---
General Adult HPI - General Chief complaint: Neuro Symptoms/Deficit Stated complaint: lt sided numbness, facial droop Time Seen by Provider: 11/10/17 09:47 Source: patient, RN notes reviewed, old records reviewed Mode of arrival: ambulatory Limitations: no limitations - History of Present Illness Initial comments: This is a 61-year-old male is male presented ER for evaluation of neurological complaint. Patient has history of high cholesterol. No smoker, no high blood pressure no diabetes. Patient comes in with blurry vision binocular blurry vision, left-sided facial heaviness in general, left-sided arm tingling. Symptoms of been on and off since yesterday, is also the recent admission about 2 months ago. Patient states he does take an aspirin every day. He has had prior cardiac evaluation including heart catheterization - Related Data Home Medications Medication Instructions Recorded Confirmed [place]-3 Fatty Acids/Fish Oil [Fish 1 cap PO BID 07/07/16 11/10/17 Oil 1,000 mg Softgel] Aspirin 81 mg PO DAILY 11/28/16 11/10/17 ALPRAZolam [Xanax] 0.5 mg PO DAILY PRN 11/10/17 11/10/17 Atorvastatin [Lipitor] 40 mg PO DAILY 11/10/17 11/10/17 Citalopram Hydrobromide [CeleXA] 20 mg PO DAILY 11/10/17 11/10/17 Levothyroxine Sodium [Synthroid] 125 mcg PO DAILY 11/10/17 11/10/17 Allergies Allergy/AdvReac Type Severity Reaction Status Date / Time Iodinated Contrast- Oral and Allergy Swelling Verified 11/10/17 10:24 IV Dye Review of Systems ROS Statement: Those systems with pertinent positive or pertinent negative responses have been documented in the HPI. ROS Other: All systems not noted in ROS Statement are negative. Past Medical History Past Medical History: Hyperlipidemia, Thyroid Disorder History of Any Multi-Drug Resistant Organisms: None Reported Past Surgical History: No Surgical Hx Reported, Cholecystectomy, Heart Catheterization Past Anesthesia/Blood Transfusion Reactions: No Reported Reaction Past Psychological History: No Psychological Hx Reported Smoking Status: Never smoker Past Alcohol Use History: None Reported, Rare Past Drug Use History: None Reported - Past Family History Mother Family Medical History: Cancer Sister(s) Family Medical History: Cancer Daughter(s) Family Medical History: Deep Vein Thrombosis (DVT) General Exam - General Exam Comments Initial Comments: NIH of 1 Limitations: no limitations General appearance: alert, in no apparent distress Head exam: Present: atraumatic, normocephalic, normal inspection Eye exam: Present: normal appearance, PERRL, EOMI. Absent: scleral icterus, conjunctival injection, periorbital swelling ENT exam: Present: normal exam, mucous membranes moist Neck exam: Present: normal inspection. Absent: tenderness, meningismus, lymphadenopathy Respiratory exam: Present: normal lung sounds bilaterally. Absent: respiratory distress, wheezes, rales, rhonchi, stridor Cardiovascular Exam: Present: regular rate, normal rhythm, normal heart sounds. Absent: systolic murmur, diastolic murmur, rubs, gallop, clicks GI/Abdominal exam: Present: soft, normal bowel sounds. Absent: distended, tenderness, guarding, rebound, rigid Extremities exam: Present: normal inspection, full ROM, normal capillary refill. Absent: tenderness, pedal edema, joint swelling, calf tenderness Back exam: Present: normal inspection Neurological exam: Present: alert, oriented X3, CN II-XII intact Psychiatric exam: Present: normal affect, normal mood Skin exam: Present: warm, dry, intact, normal color. Absent: rash Course Vital Signs 11/10/17 09:39 Temperature 98.1 F Pulse Rate 79 Respiratory 18 Rate Blood Pressure 141/91 O2 Sat by Pulse 98 Oximetry - Reevaluation(s) Reevaluation #1: 11/10/17 11:04 Patient having no change in symptoms, blurry vision has not returned EKG Findings - EKG Comments: EKG Findings:: EKG shows sinus rhythm rate of 69, DC 140, QRS 94, QTC 445 Medical Decision Making - Medical Decision Making 58 female the ER for evaluation of positive neurological complaint, left-sided facial droop left-sided tingling and paresthesia, blurry vision. Patient will be admitted for neurological evaluation - Lab Data Result diagrams: 11/10/17 09:55 11/10/17 09:55 Lab Results 11/10/17 11/10/17 11/10/17 Range/Units 09:55 09:55 09:55 WBC 5.5 (3.8-10.6) k/uL RBC 4.86 (4.30-5.90) m/uL Hgb 14.9 (13.0-17.5) gm/dL Hct 42.9 (39.0-53.0) % MCV 88.2 (80.0-100.0) fL MCH 30.7 (25.0-35.0) pg MCHC 34.8 (31.0-37.0) g/dL RDW 12.5 (11.5-15.5) % Plt Count 260 (150-450) k/uL Neutrophils % 62 % Lymphocytes % 26 % Monocytes % 6 % Eosinophils % 3 % Basophils % 1 % Neutrophils # 3.4 (1.3-7.7) k/uL Lymphocytes # 1.5 (1.0-4.8) k/uL Monocytes # 0.3 (0-1.0) k/uL Eosinophils # 0.2 (0-0.7) k/uL Basophils # 0.0 (0-0.2) k/uL PT (9.0-12.0) sec INR (<1.2) APTT (22.0-30.0) sec Sodium 141 (137-145) mmol/L Potassium 4.1 (3.5-5.1) mmol/L Chloride 107 (98-107) mmol/L Carbon Dioxide 24 (22-30) mmol/L Anion Gap 10 mmol/L BUN 14 (9-20) mg/dL Creatinine 0.92 (0.66-1.25) mg/dL Est GFR (CKD-EPI)AfAm >90 (>60 ml/min/1.73 sqM) Est GFR (CKD-EPI)NonAf 88 (>60 ml/min/1.73 sqM) Glucose 100 H (74-99) mg/dL Calcium 9.5 (8.4-10.2) mg/dL Total Bilirubin 0.7 (0.2-1.3) mg/dL AST 38 (17-59) U/L ALT 47 (21-72) U/L Alkaline Phosphatase 57 (38-126) U/L Total Creatine Kinase 101 (55-170) U/L CK-MB (CK-2) 1.0 (0.0-2.4) ng/mL CK-MB (CK-2) Rel Index 1.0 Troponin I <0.012 (0.000-0.034) ng/mL Total Protein 6.9 (6.3-8.2) g/dL Albumin 4.5 (3.5-5.0) g/dL 11/10/17 Range/Units 09:55 WBC (3.8-10.6) k/uL RBC (4.30-5.90) m/uL Hgb (13.0-17.5) gm/dL Hct (39.0-53.0) % MCV (80.0-100.0) fL MCH (25.0-35.0) pg MCHC (31.0-37.0) g/dL RDW (11.5-15.5) % Plt Count (150-450) k/uL Neutrophils % % Lymphocytes % % Monocytes % % Eosinophils % % Basophils % % Neutrophils # (1.3-7.7) k/uL Lymphocytes # (1.0-4.8) k/uL Monocytes # (0-1.0) k/uL Eosinophils # (0-0.7) k/uL Basophils # (0-0.2) k/uL PT 10.1 (9.0-12.0) sec INR 1.0 (<1.2) APTT 24.0 (22.0-30.0) sec Sodium (137-145) mmol/L Potassium (3.5-5.1) mmol/L Chloride (98-107) mmol/L Carbon Dioxide (22-30) mmol/L Anion Gap mmol/L BUN (9-20) mg/dL Creatinine (0.66-1.25) mg/dL Est GFR (CKD-EPI)AfAm (>60 ml/min/1.73 sqM) Est GFR (CKD-EPI)NonAf (>60 ml/min/1.73 sqM) Glucose (74-99) mg/dL Calcium (8.4-10.2) mg/dL Total Bilirubin (0.2-1.3) mg/dL AST (17-59) U/L ALT (21-72) U/L Alkaline Phosphatase (38-126) U/L Total Creatine Kinase (55-170) U/L CK-MB (CK-2) (0.0-2.4) ng/mL CK-MB (CK-2) Rel Index Troponin I (0.000-0.034) ng/mL Total Protein (6.3-8.2) g/dL Albumin (3.5-5.0) g/dL - Radiology Data Radiology results: report reviewed (CT brain CT angiogram head and neck negative for acute disease), image reviewed Disposition Clinical Impression: Cerebrovascular accident Disposition: Left Against Medical Advice Condition: Fair Is patient prescribed a controlled substance at d/c from ED?: No
[2017-11-10 10:41] LABS: Creatine Kinase 101 U/L (55-170)
[2017-11-10 10:54] LABS: Troponin I <0.012 ng/mL (0.000-0.034)
[2017-11-10] MEDS ORDERED: ASPIRIN 325 MG TAB PO STA (11:04)
--- NOTE | 2017-11-10 11:14 | CT ---
EXAMINATION TYPE: CT brain wo con for TPA DATE OF EXAM: 11/10/2017 COMPARISON: 11/28/2016 HISTORY: Patient complains of dizziness. CT DLP: 830.1 mGycm Automated exposure control for dose reduction was used. TECHNIQUE: CT scan of the head is performed without contrast. FINDINGS: There is no acute intracranial hemorrhage, mass effect, or midline shift identified. Few scattered ar eas of hypoattenuation within the periventricular and subcortical white matter are similar to the ab or. Punctate calcification within the foramen Dixon is also unchanged from the prior with no mass se en to suggest colloid cyst. No suspicious extra-axial fluid collection. The ventricles and sulci are within normal limits in size. Frontal sinuses are aplastic and minimal mucosal thickening is presen t within the ethmoid sinuses. The globes are intact and the remaining visualized sinuses are clear. E xtensive atherosclerosis is seen of the intracranial vasculature, similar to the prior exam of 11/29/19 17. IMPRESSION: No acute intracranial hemorrhage, mass effect, or midline shift is seen. No acute intracranial proces s. Mild nonspecific white matter changes, similar to the prior that are likely on the basis of chroni c microangiopathy.
[2017-11-10] MEDS ORDERED: SODIUM CHLORIDE 0.9% 1,000 ML IV SCH (11:15)
--- NOTE | 2017-11-10 11:45 | CT ---
EXAMINATION TYPE: CT angio head neck DATE OF EXAM: 11/10/2017 HISTORY: Patient complains of dizziness. COMPARISON: CT brain of the same date. CT DLP: 331.6 mGycm. Automated Exposure Control for Dose Reduction was Utilized. TECHNIQUE: CTA scan of the neck is performed with IV Contrast, patient injected with 65 mL of Isovue 370, axial images are obtained, coronal and sagittal reformatted images are reviewed. Three-D recons tructed images are created on an independent workstation and reviewed. FINDINGS: Carotid/Vascular Structures: No hemodynamically significant stenosis of the bilateral common carotid arteries, internal carotid arteries, or proximal external carotid arteries within the neck. Focal hernan cific and noncalcific atheromatous plaquing of the right vertebral artery narrows the lumen approxima tely 50%. Within the cavernous and supraclinoid portion of the left internal carotid artery there are multiple focal areas of approximately 50% stenosis, also within the supraclinoid portion on the righ t. There is no evidence of contrast extravasation or gross evidence of intracranial aneurysm. [place] of [place] appears intact. No gross evidence of intracranial enhancing mass although arterial phase sl ightly limited finding. Other: Mild multilevel degenerative changes of the osseous structures are noted. Lung apices are ashvin sly unremarkable. Soft tissues of the neck demonstrate no gross abnormality. Parotids and submandibul ar glands are symmetric. IMPRESSION: 1. No hemodynamically significant stenosis, focal aneurysmal outpouching or dissection of the head or neck. 2. Multifocal areas of approximately 50% stenosis including the right vertebral artery, bilateral cav ernous portions of the internal carotid arteries, and bilateral supraclinoid portions of the internal carotid arteries.
[2017-11-10 11:54] VITALS: RESP 20; TEMP 98
[2017-11-10 11:56] VITALS: BP 132/86; PULSE 84
[2017-11-11] MEDS ORDERED: ASPIRIN 325 MG TAB PO SCH (09:00)
== END 2017-11-10 11:58 | disposition left against medical advice (07) ==
LOC: EC 09:31 → 6SEL 11:14 → UNDOADMOB 11:14 → EC 11:58
DX: I63.9 Cerebral infarction, unspecified (principal); E78.5 Hyperlipidemia, unspecified; E07.9 Disorder of thyroid, unspecified; Z90.49 Acquired absence of other specified parts of digestive tract; Z98.890 Other specified postprocedural states; Z79.899 Other long term (current) drug therapy; Z91.041 Radiographic dye allergy status
CPT/HCPCS: 36415; 93005; 80053; 82550; 82553; 84484; 85025; 85610; 85730; 70496; 70450; 70498; 99285; 96374; 96375 ×2; 96361; J1200; J2930; Q9967

== ENCOUNTER → 2017-11-28 | Outpatient (CLI) | payer BC ==
--- NOTE | 2017-11-28 10:51 | MR ---
EXAMINATION TYPE: MR angio head wo/neck wo/w con DATE OF EXAM: 11/28/2017 COMPARISON: MRI 08/18/2017, CT scan 11/10/2017 HISTORY: TIA / Diplopia / Abnormal MRI TECHNIQUE: Utilizing 3-D [id number] intracranial MRA of the [place] of [place] was performed. FINDINGS: The vertebrobasilar and carotid systems are patent. There is no sizable aneurysm or vascular malform ation. Atherosclerotic change is suspected involving the bilateral cavernous and supraclinoid portio ns of the ICA. Suggestion of possible atherosclerotic change of the left vertebral artery confluence vertebral arteries. IMPRESSION: 1. No evidence of vascular malformation or sizable aneurysm. 2 intracranial atherosclerotic changes. EXAMINATION TYPE: MR angio head wo/neck wo/w con DATE OF EXAM: 11/28/2017 COMPARISON: MRI 08/18/2017, CT 11/10/2017 HISTORY: TIA / Diplopia / Abnormal MRI CONTRAST: Standard multiplanar, multisequence MRI departmental protocol utilizing 9 mL intravenous Gadavist megan olinium contrast. FINDINGS: Right vertebral artery is dominant. The carotid bifurcations are widely patent The visualized common carotid and internal and external carotid arteries are widely patent. There are areas of normal course and caliber. IMPRESSION: No significant hemodynamic stenosis.
== END | disposition home or self-care (01) ==
LOC: RADMRIMAIN 09:22
PROVIDERS: ATTEND Psychiatry & Neurology Neurology
DX: I67.2 Cerebral atherosclerosis (principal); H53.2 Diplopia
CPT/HCPCS: 70544; 70549; A9581

== ENCOUNTER 2018-09-01 09:03 | Inpatient (IN) | payer BC ==
[2018-09-01] MEDS ORDERED: ceFAZolin IN SWFI 2 GM/20 ML SYRINGE IVP ONE ×2 (09:25→09:58)
[2018-09-01 11:16] LABS: Basophils # (A) 0.1 k/uL (0-0.2); Basophils % (A) 1 %; Eosinophils # (A) 0.2 k/uL (0-0.7); Eosinophils % (A) 3 %; HCT 40.8 % (39.0-53.0); HGB 13.9 gm/dL (13.0-17.5); Lymphocytes # (A) 1.5 k/uL (1.0-4.8); Lymphocytes % (A) 23 %; MCH 30.9 pg (25.0-35.0); MCHC 34.2 g/dL (31.0-37.0); MCV 90.5 fL (80.0-100.0); Mean Platelet Volume 6.3; Monocytes # (A) 0.3 k/uL (0-1.0); Monocytes % (A) 4 %; Neutrophils # (A) 4.2 k/uL (1.3-7.7); Neutrophils % (A) 66 %; Platelet Count 353 k/uL (150-450); RBC 4.51 m/uL (4.30-5.90); RDW 12.6 % (11.5-15.5); WBC 6.4 k/uL (3.8-10.6)
[2018-09-01 11:29] LABS: INR 0.9 (<1.2); Partial Thromboplastin Time 24.1 sec (22.0-30.0)
[2018-09-01 13:16] LABS: Erythrocyte Sedimentation Rate 14 mm/hr (0-15)
[2018-09-01] MEDS ORDERED: IV FLUID CONTINUATION 1,000 ML IV ONE (13:32)
--- NOTE | 2018-09-01 14:24 | P.HPOR ---
History of Present Illness H&P Date: 09/01/18 This patient is a 62- year old male that was seen by Dr. Rodriguez in the office earlier this morning. The patient underwent a left first MTP arthrodesis on 07/16/18 at the [facility]. He was recently placed on oral antibiotics for concerns of an incision infection. Patient re-checked in the office today, with worsening of symptoms. Patient was direct admitted to [facility] today for an I&D of the left foot, with possible wound vac placement by Dr. Rodriguez, and IV antibiotics. Past Medical History Past Medical History: Hyperlipidemia, Thyroid Disorder History of Any Multi-Drug Resistant Organisms: None Reported Past Surgical History: No Surgical Hx Reported, Cholecystectomy, Heart Nirmala terization Past Anesthesia/Blood Transfusion Reactions: No Reported Reaction Past Psychological History: No Psychological Hx Reported Smoking Status: Never smoker Past Alcohol Use History: None Reported, Rare Past Drug Use History: None Reported - Past Family History Mother Family Medical History: Cancer Sister(s) Family Medical History: Cancer Daughter(s) Family Medical History: Deep Vein Thrombosis (DVT) Medications and Allergies Home Medications Medication Instructions Recorded Confirmed Type [place]-3 Fatty Acids/Fish Oil [Fish 1 cap PO BID 07/07/16 09/01/18 History Oil 1,000 mg Softgel] Aspirin 81 mg PO DAILY 11/28/16 09/01/18 History ALPRAZolam [Xanax] 0.5 mg PO DAILY PRN 11/10/17 09/01/18 History Atorvastatin [Lipitor] 40 mg PO HS 11/10/17 09/01/18 History Citalopram Hydrobromide [CeleXA] 20 mg PO HS 11/10/17 09/01/18 History Levothyroxine Sodium [Synthroid] 125 mcg PO DAILY 11/10/17 09/01/18 History Clopidogrel Bisulfate [Plavix] 75 mg PO DAILY 09/01/18 09/01/18 History Garlic 1 tab PO BID 09/01/18 09/01/18 History Allergies Allergy/AdvReac Type Severity Reaction Status Date / Time Iodinated Contrast- Oral and Allergy Swelling Verified 09/01/18 12:05 IV Dye Physical Examination On exam the patient is in no apparent distress. Breathing appears non-labored. On inspection of the left foot, there is a clean, dry, and intact TALITA wrap and dressing in place. Toes are warm and well-perfused with brisk capillary refill. Results - Labs Labs: H & H 09/01/18 Range/Units 10:48 Hgb 13.9 (13.0-17.5) gm/dL Hct 40.8 (39.0-53.0) % Coagulation 09/01/18 Range/Units 10:48 INR 0.9 (<1.2) Result Diagrams: 09/01/18 10:48 Assessment and Plan Assessment: Left foot infection Plan: - We will plan for an I&D and possible wound vac placement on the left foot today with Dr. Rodriguez. - Patient will be admitted following the procedure for IV antibiotics and an infectious disease consult. - Strict non weight bearing on left foot. - NPO diet. Patient discussed with Dr. Rodriguez.
[2018-09-01] MEDS ORDERED: PROPOFOL 10 MG/ML 20 ML VIAL IV ONE (14:31)
[2018-09-01] MEDS ORDERED: fentaNYL (PF) 50 MCG/ML 2 ML AMP ONE (14:31)
[2018-09-01] MEDS ORDERED: LIDOCAINE 1% INJ 10MG/ML (20 ML MDV) ONE (14:31)
[2018-09-01] MEDS ORDERED: MIDAZOLAM 2 MG/2 ML VIAL ONE (14:31)
[2018-09-01] MEDS ORDERED: HYDROmorphone (PF) 1 MG/ML ONE (14:31)
[2018-09-01] MEDS ORDERED: LACTATED RINGERS 1,000 ML IV ONE (15:17)
--- NOTE | 2018-09-01 15:38 | P.OP ---
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 At his initial postoperative visit he was doing well with a healing incision, but shortly thereafter developed redness and a small amount of drainage. He was seen in the office last week where wound cu ltures were taken, he was started on an oral antibiotic, and wound care was provided. He had no improvement over the weekend and was seen in the office this morning with persistent redness and drainage. The cultures came back as MSSA. We discussed continued wound care and oral antibiotics versus admission to the hospital for IV antibiotic, wound debridement, and an infectious disease consultation. The patient, his and myself decided on the latter. He was admitted to the hospital. I met with the patient preoperatively to once again discussed the treatment and all the potential risks and complications including continued or worsened infection, need for further surgery, possibility of requiring hardware removal, and possibility of requiring amputation. They understand the potential risks and provided consent to go forward with surgery. Operative Findings: There is superficial breakdown of the surgical wound over the distal third of the incision which tracked down to the hardware. There is diffuse erythema but no courtney purulence. Description of Procedure: The patient was identified and operative holding and the correct left foot was marked with my initials. I reviewed the consent form with the patient and his . All their questions were answered. The patient was then brought back to the operating room. He was positioned on the OR table and general anesthetic was administered. A tourniquet was applied to the proximal aspect of the left leg. Left leg was prepped and draped in the standard sterile fashion. Prior to starting surgery timeout was performed identifying the correct patient, operative extremity, and procedure. The patient's leg was then elevated for 2 minutes and the tourniquet was inflated to 250 mmHg. I began by ellipsing out the area of nonviable and necrotic tissue over the incision with a scalpel. Debridement was carried down through the skin and subcutaneous tissue. The wound tracked to the plate. There was no gross reliance. Nonviable skin and subcutaneous tissue was sharply excised with a scalpel. Deep cultures were taken. The wound was then thoroughly irrigated using sterile saline and cystoscopy tubing until it appeared clean. The deep subcutaneous tissue was able to be adequately reapproximated over the plate using 2-0 Prolene. The skin was closed using 3-0 nylon horizontal mattress stitches. I was able to completely close the incision without undue tension. The wound appeared clean. Incision was frame then with 1 inch [place] and an incisional wound VAC was placed over the incision. It was hooked up to a canister and the suction was set 125 mmHg continuous pressure. The patient had a web roll and Bob wrap applied over the leg. He was then awoken from his anesthetic, transferred to a gurney, and brought to recovery haven't out of the procedure well. Plan: the patient is going to be admitted overnight for IV antibiotics and a wound/infectious disease consultation. He is to remain strictly nonweightbearing on his left leg in a boot. We will leave the incisional wound VAC on for 48 hours. If the decision is made regarding choice of antibiotic and route of administration by tomorrow he is okay to discharge home and he can follow-up with me in the office on for a wound VAC removal and soft tissue check.
[2018-09-01] MEDS ORDERED: hydrOXYzine PAMOATE 25 MG CAP PO PRN (15:42)
[2018-09-01] MEDS ORDERED: HYDROmorphone 0.5 MG/0.5 ML SYRINGE IVP PRN ×2 (15:42)
[2018-09-01] MEDS ORDERED: SENNOSIDES-DOCUSATE SODIUM 1 EACH TAB PO PRN (15:42)
[2018-09-01] MEDS ORDERED: ONDANSETRON 4 MG/2 ML VIAL IVP PRN (15:42)
[2018-09-01] MEDS: fentaNYL (PF) 50 MCG/ML 2 ML AMP IVP ONE ×2 (15:49→15:52)
[2018-09-01] MEDS: HYDROmorphone 1 MG/ML 1 ML SYRINGE IVP ONE ×4 (15:57→16:23)
[2018-09-01] MEDS ORDERED: KETOROLAC 30 MG/ML 1 ML VIAL IVP ONE (16:07)
[2018-09-01] MEDS ORDERED: ACETAMINOPHEN IV (For NPO) 1,000 MG/100 ML VIAL IVPB ONE (16:10)
[2018-09-01] MEDS: LACTATED RINGERS 1,000 ML IV SCH (17:31)
[2018-09-01] MEDS ORDERED: ALPRAZolam 0.5 MG TAB PO PRN (19:28)
[2018-09-01] MEDS: HEPARIN SODIUM,PORCINE 5,000 UNIT/ML 1 ML VIAL SQ SCH (20:21)
[2018-09-01] MEDS: ATORVASTATIN 40 MG TAB PO SCH (20:21)
[2018-09-01] MEDS: CITALOPRAM HYDROBROMIDE 20 MG TAB PO SCH (20:21)
--- NOTE | 2018-09-01 21:43 | P.CONS ---
History of Present Illness - Reason for Consult Consult date: 09/01/18 Left big toe infection Requesting physician: Omer Rodriguez - Chief Complaint Left big toe swelling and redness x 1 week - History of Present Illness Patient is 62-year-old male who is status post left big toe arthrodesis for Left first MTP arthritis about a month ago, patient did well postoperatively however the did mention that one end of the incision never completely healed up and was a tiny small hole , over week ago they noticed to have more swelling and redness of his left big toe and started having some drainage the patient denies significant pain to the big toe area and denies any high-grade fever rigors or chills the patient was evaluated in the outpatient setting by his surgeon he did have a cultures obtained and the patient was start ed on oral Bactrim DS, however the patient did not have any improvement as for redness of the left big toe is concerned, patient was reevaluated and subsequently has been admitted directly to the hospital for I&D and IV antibiotic therapy, patient was taken to the OR this afternoon and is status pos t I&D the patient has been started on cefazolin as a culture were positive for MSSA infections disease was consulted for further recommendation regarding antibiotic therapy Review of Systems CONSTITUTIONAL: The patient denies any fever or chills EYES: No complaint. ENT:No complaint. RESPIRATORY: No complaint. CARDIOVASCULAR: No complaint. GENITOURINARY: No complaint. GASTROINTESTINAL: No complaint. MUSCULOSKELETAL: As per history of present illness INTEGUMENTARY: As per history of present illness PSYCHOLOGICAL: No complaint. ENDOCRINE: No complaint. NEUROLOGIC: No complaint. Past Medical History Past Medical History: Hyperlipidemia, Thyroid Disorder History of Any Multi-Drug Resistant Organisms: None Reported Past Surgical History: No Surgical Hx Reported, Cholecystectomy, Heart Catheterization Past Anesthesia/Blood Transfusion Reactions: No Reported Reaction Past Psychological History: No Psychological Hx Reported Smoking Status: Never smoker Past Alcohol Use History: None Reported, Rare Past Drug Use History: None Reported - Past Family History Mother Family Medical History: Cancer Sister(s) Family Medical History: Cancer Daughter(s) Family Medical History: Deep Vein Thrombosis (DVT) Medications and Allergies Home Medications Medication Instructions Recorded Confirmed Type [place]-3 Fatty Acids/Fish Oil [Fish 1 cap PO BID 07/07/16 09/01/18 History Oil 1,000 mg Softgel] Aspirin 81 mg PO DAILY 11/28/16 09/01/18 History ALPRAZolam [Xanax] 0.5 mg PO DAILY PRN 11/10/17 09/01/18 History Atorvastatin [Lipitor] 40 mg PO HS 11/10/17 09/01/18 History Citalopram Hydrobromide [CeleXA] 20 mg PO HS 11/10/17 09/01/18 History Levothyroxine Sodium [Synthroid] 125 mcg PO DAILY 11/10/17 09/01/18 History Clopidogrel Bisulfate [Plavix] 75 mg PO DAILY 09/01/18 09/01/18 History Garlic 1 tab PO BID 09/01/18 09/01/18 History Allergies Allergy/AdvReac Type Severity Reaction Status Date / Time Iodinated Contrast- Oral and Allergy Swelling Verified 09/01/18 12:05 IV Dye Physical Exam Vitals: Vital Signs Temp Pulse Resp BP Pulse Ox 09/01/18 13:33 96.9 F L 76 18 136/80 93 L 09/01/18 11:10 98.4 F 84 17 128/84 98 Intake and Output 09/01/18 09/01/18 09/01/18 06:59 14:59 22:59 Intake Total 700 100 Output Total 5 Balance 700 95 Intake: IV 700 100 Output: Estimated Blood Loss 5 Other: # Voids 3 Weight 87.997 kg GENERAL DESCRIPTION: Middle-aged male lying in bed, no distress. No tachypnea or accessory muscle of respiration use. HEENT: Shows Pallor , no scleral icterus. Oral mucous membrane is dry. No pharyngeal erythema or thrush NECK: Trachea central, no thyromegaly. LUNGS: Unlabored breathing. Clear to auscultation anteriorly. No wheeze or crackle. HEART: S1, S2, regular rate and rhythm. No loud murmur ABDOMEN: Soft, no tenderness , guarding or rigidity, no organomegaly EXTREMITIES: Left foot is currently dressed up post op no drainage of the dressing SKIN: No rash, no masses palpable. NEUROLOGICAL: The patient is awake, alert, oriented x3, mood and affect normal. Results CBC & Chem 7: 09/01/18 10:48 Assessment and Plan Assessment: 1-patient with MSSA left big toe surgical site infection in this patient did have underlying arthrodesis for Left first MTP arthritis with concern for underlying deep infection such as osteomyelitis that will need aggressive IV antibiotic therapy in order to control infection and prevent amputation Plan: 1- we will obtain baseline blood cultures to make sure the patient is not bacteremic though clinically not behaving as such 2-we will check baseline sed rate and CRP 3-cefazolin 2 g every 8 hours 4-patient with a PICC line for outpatient IV antibiotic therapy Plan of care discussed in detail with the patient and his , all questions and concerns were answered Time with Patient: Greater than 30
[2018-09-01] MEDS: HYDROcodone/APAP 5-325MG 1 EACH TAB PO PRN (22:12)
[2018-09-01] MEDS: HYDROmorphone 0.5 MG/0.5 ML SYRINGE IVP PRN (23:17)
[2018-09-01] MEDS: ceFAZolin IN SWFI 2 GM/20 ML SYRINGE IVP SCH (23:36)
[2018-09-02] MEDS: LACTATED RINGERS 1,000 ML IV SCH ×3 (01:22→21:57)
[2018-09-02] MEDS: HYDROcodone/APAP 5-325MG 1 EACH TAB PO PRN ×4 (01:50→20:09)
[2018-09-02] MEDS: HYDROmorphone 0.5 MG/0.5 ML SYRINGE IVP PRN ×5 (04:38→23:43)
[2018-09-02] MEDS: LEVOTHYROXINE 125 MCG TAB PO SCH (04:40)
--- NOTE | 2018-09-02 06:25 | CONS ---
CONSULTATION DATE OF SERVICE: 09/01/2018 REASON FOR CONSULTATION: Advice regarding hyperlipidemia and other medical issues requested by Dr. Rodriguez. HISTORY OF PRESENT ILLNESS: This 62-year-old gentleman with a past medical history of multiple medical problems of hyperlipidemia, history of hypothyroidism, history of cholecystectomy being followed by Dr. Rodriguez in the outpatient setting underwent irrigation debridement and application of incision wound VAC for left first metatarsophalangeal by Dr. Rodriguez. The patient was closely monitored. There is no history of any fever or rigors. No history of headache, loss of consciousness, chest pain or palpation at this time. PAST MEDICAL HISTORY: Hyperlipidemia, hypothyroidism and cholecystectomy. MEDICATIONS: Medications prior to admission include: 1. [place]-3 fatty acids p.o. b.i.d. 2. Synthroid 125 mcg p.o. daily. 3. Garlic 1 tablet p.o. b.i.d. 4. Plavix 75 mg p.o. daily. 5. Celexa 20 mg q.h.s. 6. Lipitor 40 mg q.h.s. 7. Aspirin 81 mg daily. 8. Xanax 0.5 daily p.r.n. ALLERGIES: IODINATED CONTRAST DYES. FAMILY HISTORY: History of cancer in the family. SOCIAL HISTORY: No history of smoking. No history of alcohol intake. REVIEW OF SYSTEMS: ENT: No diminished hearing or diminished vision. CARDIOVASCULAR SYSTEM: No angina. RESPIRATORY SYSTEM: As mentioned earlier. GI: No nausea. : No dysuria. NERVOUS SYSTEM: No numbness or weakness. ALLERGY/IMMUNOLOGY: No asthma or hayfever. MUSCULOSKELETAL: As mentioned earlier. HEMATOLOGY/ONCOLOGY: No history of anemia. ENDOCRINE: No history of diabetes. CONSTITUTIONAL: As mentioned earlier. DERMATOLOGY: Negative. RHEUMATOLOGY: Negative. PSYCHIATRY: As mentioned earlier. PHYSICAL EXAMINATION: The patient is alert and oriented x3. Pulse 66, blood pressure 117/65, respirations 16, temperature normal, pulse ox 98% on 3 L. HEENT: Conjunctivae normal. CARDIOVASCULAR: S1, S2 muffled. RESPIRATORY: Breath sounds diminished at the bases. No rhonchi, no crackles. ABDOMEN: Soft, nontender. LEGS: Status post surgery on the left foot. NERVOUS SYSTEM: Higher functions as mentioned earlier. Moves all 4 limbs. No focal motor deficits. LYMPHATICS: No lymphadenopathy of the neck, axillae or groin. SKIN: No ulcer, rash or bleeding. JOINTS: As mentioned earlier. LABS: Labs are at this time CBC within normal limits. ASSESSMENT: 1. Status post irrigation and debridement and application of incisional wound VAC left first metatarsophalangeal joint. 2. Hyperlipidemia. 3. Hypothyroidism. 4. History of cholecystectomy. RECOMMENDATIONS AND DISCUSSION: This 62-year-old gentleman who presented with multiple medical problems closely. Continue the current medications. Continues symptomatic treatment. I recommend to resume home medications, DVT prophylaxis. The patient incentive spirometry. Will follow the patient closely with you and repeat labs are ordered. Thank you Dr. Rodriguez for letting us participate in the care of this patient. MMODL / IJN: [id number] / EZRA
[2018-09-02] MEDS: HEPARIN SODIUM,PORCINE 5,000 UNIT/ML 1 ML VIAL SQ SCH ×2 (08:38→20:08)
[2018-09-02 08:45] LABS: Basophils # (A) 0.1 k/uL (0-0.2); Basophils % (A) 1 %; Eosinophils # (A) 0.3 k/uL (0-0.7); Eosinophils % (A) 4 %; HCT 40.3 % (39.0-53.0); HGB 13.2 gm/dL (13.0-17.5); Lymphocytes # (A) 1.9 k/uL (1.0-4.8); Lymphocytes % (A) 26 %; MCH 29.7 pg (25.0-35.0); MCHC 32.8 g/dL (31.0-37.0); MCV 90.8 fL (80.0-100.0); Mean Platelet Volume 6.6; Monocytes # (A) 0.3 k/uL (0-1.0); Monocytes % (A) 4 %; Neutrophils # (A) 4.7 k/uL (1.3-7.7); Neutrophils % (A) 63 %; Platelet Count 347 k/uL (150-450); RBC 4.44 m/uL (4.30-5.90); RDW 13.4 % (11.5-15.5); WBC 7.4 k/uL (3.8-10.6)
[2018-09-02] MEDS: ceFAZolin IN SWFI 2 GM/20 ML SYRINGE IVP SCH ×3 (09:42→23:43)
--- NOTE | 2018-09-02 09:45 | P.PN ---
Subjective Progress Note Date: 09/02/18 This patient is a 62-year-old male with a past medical history of hyperlipidemia, hypothyroidism, TIA currently on Plavix was instructed admitted to [facility] yesterday afternoon for an incision infection after being seen in the office by Dr. Rodriguez earlier today. The patient underwent a left first MTP arthrodesis on 07/16/18 at the [facility]. He was recently placed on oral antibiotics for concerns of an incision infection. Patient re-checked in the office today, with worsening of symptoms, persistent redness and drainage. Cultures taken office and come back as MSSA. Patient underwent an I&D of the left first MTP joint, with incisional wound vac placement by Dr. Rodriguez on 09/01/18. He was subsequently admitted for IV antibiotics, and infectious disease consultation. Today is postoperative day #1. The patient states he is doing well, he experienced moderate pain in the left foot last night, although his pain is well-controlled at the moment. He tolerated breakfast well. He denies chest pain, shortness of breath, nausea, vomiting, fevers, chills. He has no new complaints or concerns today. Vital signs stable. Objective - Vital Signs Vital signs: Vital Signs Temp 97.9 F 09/02/18 07:33 Pulse 60 09/02/18 07:33 Resp 16 09/02/18 07:33 BP 101/65 09/02/18 07:33 Pulse Ox 98 09/02/18 07:33 Intake & Output 09/01/18 09/02/18 09/02/18 18:59 06:59 18:59 Intake Total 1200 1340 236 Output Total 5 Balance 1195 1340 236 Weight 87.997 kg Intake: IV 1200 Intake, IV Titration 1000 Amount Lactated Ringers 1,000 ml 1000 @ 100 mls/hr IV .Q10H ANGELINE Rx#:[id number] Oral 340 236 Output: Estimated Blood Loss 5 Other: # Voids 3 2 - Exam On examination, the patient is lying in bed in no acute distress. The patient is alert and oriented 3. On inspection of the left foot, there is a wound VAC And Bob wrap in place. Bob wrap is clean, dry, intact. The toes are warm and well-perfused with brisk capillary refill. The patient is able to dorsiflex and plantarflex the toes without issue. Sensation is intact to light touch of the plantar and dorsal toes. Neurovascular is intact of the left lower extremity. The left calf is soft nontender to palpation. - Labs CBC & Chem 7: 09/02/18 07:55 Labs: Microbiology - Last 24 Hours (Table) 09/01/18 15:30 Gram Stain - Preliminary Foot - Left Wound Culture - Preliminary 09/01/18 15:30 Anaerobic Culture - Preliminary Foot - Left 09/01/18 15:30 Fungal Culture - Preliminary Foot - Left Assessment and Plan Assessment: Left first MTP joint arthrodesis with the surgical site infection status-post irrigation and debridement with application of incisional wound VAC on 09/01/[address] Rodriguez. Postoperative day #1. Plan: - Strict nonweightbearing on left lower extremity while in CAM boot. Crutches ordered. - Incisional wound VAC will remain in place for 48 hours. We'll plan on removal tomorrow. - IV antibiotics per infectious disease. Cultures pending. - DVT prophylaxis per internal medicine. - Plan on discharge home after clearance from internal medicine and infectious disease. Patient discussed with Dr. Rodriguez.
[2018-09-02 13:41] VITALS: BMI 26.3
[2018-09-02 14:12] LABS: Anion Gap 6 mmol/L; Blood Urea Nitrogen 13 mg/dL (9-20); Calcium 8.9 mg/dL (8.4-10.2); Carbon Dioxide 24 mmol/L (22-30); Chloride 107 mmol/L (98-107); Glucose 97 mg/dL (74-99); Potassium 4.4 mmol/L (3.5-5.1); Sodium 137 mmol/L (137-145)
[2018-09-02] MEDS ORDERED: IV FLUID CONTINUATION 1,000 ML IV ONE (14:39)
[2018-09-02] MEDS ORDERED: LIDOCAINE 1% INJ 10MG/ML (20 ML MDV) SQ ONE (14:52)
--- NOTE | 2018-09-02 15:01 | P.PN ---
Subjective Progress Note Date: 09/02/18 Wilfredo 62-year-old male well-known to me presents to Hospital because of difficulties related to his left first metatarsophalangeal joint. There is noted the patient has a difficulty with the fracture to that foot several years ago. Was having increasing difficulty deciding constantly arthrod esis to the first metatarsophalangeal joint occurred on 07/16/2018. The patient was doing well when he suddenly had increasing difficulties with pain and swelling to the site. Because this was taken to the operating room where the site was incised and drained. There was evidence at the infection did track to the hardware at the site. No significant abscess was found. Preadmission cultures with MSSA. The patient and his have adjusted well after the of their daughter. He is enjoying his fdc, they did go on a [place] cruise and he was not ill at that time. Objective - Vital Signs Vital signs: Vital Signs Temp 97.9 F 09/02/18 14:33 Pulse 60 09/02/18 14:33 Resp 16 09/02/18 14:33 BP 96/61 09/02/18 14:33 Pulse Ox 98 09/02/18 14:33 Intake & Output 09/01/18 09/02/18 09/02/18 18:59 06:59 18:59 Intake Total 1200 1340 532 Output Total 5 900 Balance 1195 1340 -368 Weight 87.997 kg 87.997 kg Intake: IV 1200 Intake, IV Titration 1000 Amount Lactated Ringers 1,000 ml 1000 @ 100 mls/hr IV .Q10H [facility] Rx#:[id number] Oral 340 532 Output: Urine 900 Estimated Blood Loss 5 Other: # Voids 3 2 - Exam Pleasant 62-year-old male in no acute distress HEENT: Anicteric conjunctiva are pink and moist nasal mucosa grossly intact without significant lesions, there is no thrush. Neck: The neck is supple without significant lymphadenopathy or thyromegaly. Lungs: Good bilateral air entry without significant crackles or wheezing. There is no significant bronchial sounds. There is no egophony or dullness. Heart: Regular rate and rhythm with an audible S1-S2, no S3 no S4. There is no significant murmur click or rub, PMI was nondisplaced. Abdomen: Positive bowel sounds soft and nontender without palpable masses or organomegaly. There was no guarding or rebound. Extremities: The upper extremities have excellent pulses they are symmetric, no significant petechiae or telangiectasia. No splinter hemorrhages were noted. Right foot shows evidence of no acute changes. Left foot shows evidence of a surgical dressing that place as well as a wound VAC that is in place over the first metatarsophalangeal joint area. There is intact sensation over the toes. The patient does complain of significant pain at the surgical site. Surgical relates the site has been closed. Neuro: Awake alert oriented to person place and time. There are no acute new gross focal sensory motor deficits. - Labs CBC & Chem 7: 09/02/18 07:55 09/02/18 07:55 Labs: Microbiology - Last 24 Hours (Table) 09/01/18 15:30 Gram Stain - Preliminary Foot - Left Wound Culture - Preliminary 09/01/18 15:30 Anaerobic Culture - Preliminary Foot - Left 09/01/18 15:30 Fungal Culture - Preliminary Foot - Left Laboratory Results WBC 7.4 k/uL (3.8-10.6) 09/02/18 07:55 RBC 4.44 m/uL (4.30-5.90) 09/02/18 07:55 Hgb 13.2 gm/dL (13.0-17.5) 09/02/18 07:55 Hct 40.3 % (39.0-53.0) 09/02/18 07:55 MCV 90.8 fL (80.0-100.0) 09/02/18 07:55 MCH 29.7 pg (25.0-35.0) 09/02/18 07:55 MCHC 32.8 g/dL (31.0-37.0) 09/02/18 07:55 RDW 13.4 % (11.5-15.5) 09/02/18 07:55 Plt Count 347 k/uL (150-450) 09/02/18 07:55 Neutrophils % 63 % 09/02/18 07:55 Lymphocytes % 26 % 09/02/18 07:55 Monocytes % 4 % 09/02/18 07:55 Eosinophils % 4 % 09/02/18 07:55 Basophils % 1 % 09/02/18 07:55 Neutrophils # 4.7 k/uL (1.3-7.7) 09/02/18 07:55 Lymphocytes # 1.9 k/uL (1.0-4.8) 09/02/18 07:55 Monocytes # 0.3 k/uL (0-1.0) 09/02/18 07:55 Eosinophils # 0.3 k/uL (0-0.7) 09/02/18 07:55 Basophils # 0.1 k/uL (0-0.2) 09/02/18 07:55 ESR 14 mm/hr (0-15) 09/01/18 10:48 PT 10.0 sec (9.0-12.0) 09/01/18 10:48 INR 0.9 (<1.2) 09/01/18 10:48 APTT 24.1 sec (22.0-30.0) 09/01/18 10:48 Sodium 137 mmol/L (137-145) 09/02/18 07:55 Potassium 4.4 mmol/L (3.5-5.1) 09/02/18 07:55 Chloride 107 mmol/L (98-107) 09/02/18 07:55 Carbon Dioxide 24 mmol/L (22-30) 09/02/18 07:55 Anion Gap 6 mmol/L 09/02/18 07:55 BUN 13 mg/dL (9-20) 09/02/18 07:55 Creatinine 0.84 mg/dL (0.66-1.25) 09/02/18 07:55 Est GFR (CKD-EPI)AfAm >90 (>60 ml/min/1.73 sqM) 09/02/18 07:55 Est GFR (CKD-EPI)NonAf >90 (>60 ml/min/1.73 sqM) 09/02/18 07:55 Glucose 97 mg/dL (74-99) 09/02/18 07:55 Calcium 8.9 mg/dL (8.4-10.2) 09/02/18 07:55 C-Reactive Protein 7.6 mg/L (<10.0) 09/01/18 10:48 Blood Type A Positive 09/01/18 10:51 Blood Type Confirm A Positive 09/01/18 12:20 Blood Type Recheck CABO Indicated 09/01/18 10:51 Antibody Screen NEGATIVE 09/01/18 10:51 Spec Expiration Date 09/04/2018 - 2351 09/01/18 10:51 Microbiology 09/01/18 15:30 Foot - Left Gram Stain - Preliminary 09/01/18 15:30 Foot - Left Wound Culture - Preliminary 09/01/18 15:30 Foot - Left Anaerobic Culture - Preliminary 09/01/18 15:30 Foot - Left Fungal Culture - Preliminary Outpatient wound culture 08/25/2018 shows evidence of MSSA Assessment and Plan (1) MSSA (methicillin susceptible Staphylococcus aureus) infection Narrative/Plan: Very pleasant 62-year-old male [facility] because of difficulties with his left first metatarsophalangeal joint arthrodesis. The site opened and had evidence of infection. Despite oral outpatient antibiotic therapy did not worsen, she was taken to the operating room and the site was incised and drained. The opening to tract down to hardware. The site was lavaged and a surgery andwas able to be closed. Negative pressure therapy has been placed over the site. Patient will have a PICC line placed for his outpatient intravenous antibiotic therapy. With current cultures Ancef is being planned which can be done via IV push. Weekly blood work has been requested patient is still having significant amount of pain and hopefully will have improved pain control by tomorrow. Request for VAC in the outpatient setting as well as the outpatient given his antibiotic therapy is being arranged. He will follow in the office next week. Current Visit: Yes Status: Acute Code(s): A49.01 - METHICILLIN SUSCEP STAPH INFECTION, UNSP SITE SNOMED Code(s): 729322182 (2) Left foot infection Current Visit: Yes Status: Acute Code(s): L08.9 - LOCAL INFECTION OF THE SKIN AND SUBCUTANEOUS TISSUE, UNSP SNOMED Code(s): 667188607
--- NOTE | 2018-09-02 15:14 | IR ---
PICC LINE PLACEMENT: HISTORY: Infection requiring long-term antibiotic therapy PROCEDURE: Ultrasound and fluoroscopic guidance of PICC line placement. COMPLICATIONS: None ANESTHESIA: 1. 1% Lidocaine locally. FINDINGS/TECHNIQUE: The procedure was explained to the patient. The risks, complications, benefits and alternatives were discussed and any questions were answered. Informed consent was obtained. The patient was placed supine on the fluoroscopic table and prepped and draped in the usual sterile fash ion. Utilizing a 21 gauge needle and sonographic and fluoroscopic guidance, access in the left basi lic vein was achieved and there is placement of a 0.018 guidewire. The vein is patent. A 4-F sheath was placed over the guidewire. The guidewire and dilator were removed and a 4-F. PICC line was plac ed through the sheath with the tip at the level of the SVC. The sheath was removed, the catheter was flushed and sutured into position. The patient was stable throughout the procedure and remained sta ble upon discharge from the Department of Radiology. The vein puncture was patent under ultrasound. A hassan scale image was obtained to document patency of the vein punctured. All elements of the maximal barrier technique were utilized. FLUOROSCOPY TIME: 0.2 minutes and one image submitted IMPRESSION: Successful PICC line placement under ultrasound and fluoroscopic guidance.
[2018-09-02] MEDS: RIFAMPIN 300 MG CAP PO SCH (16:12)
--- NOTE | 2018-09-02 16:25 | PN ---
PROGRESS NOTE DATE OF SERVICE: 09/02/2018 This 62-year-old gentleman who was admitted after surgery for the metatarsophalangeal joint is being closely monitored. The patient is complaining of significant pain in that area. No chest pain. No palpitations. Orthopedics is following the patient closely. On exam, alert and oriented x3. Pulse 60, blood pressure 101/61, respirations 16, temperature 97.9, pulse ox 98% on room air. HEENT: Conjunctivae normal. NECK: No jugular venous distention. CARDIOVASCULAR SYSTEM: S1, S2 muffled. RESPIRATORY SYSTEM: Breath sounds diminished at the bases. A few scattered rhonchi and crackles. ABDOMEN: Soft, non-tender. LEGS: Status post surgery on the left foot. Wound V.A.C. present. LABS: CBC and BMP within normal limits. ASSESSMENT: 1. Status post irrigation and debridement and application of incisional wound V.A.C., left first metatarsophalangeal joint. 2. Hyperlipidemia. 3. Hypothyroidism. 4. History of cholecystectomy. RECOMMENDATIONS AND DISCUSSION: I recommend to continue current medications, continue with the monitoring, symptomatic treatment. Continue with the antibiotics. Continue the rest of the medications. Follow cultures. Further recommendations to follow. MMODL / IJN: [id number] /
[2018-09-02] MEDS: ATORVASTATIN 40 MG TAB PO SCH (20:08)
[2018-09-02] MEDS: CITALOPRAM HYDROBROMIDE 20 MG TAB PO SCH (20:08)
[2018-09-03] MEDS: HYDROcodone/APAP 5-325MG 1 EACH TAB PO PRN ×2 (00:01→05:57)
[2018-09-03 02:25] VITALS: RESP 16; TEMP 98.4
[2018-09-03] MEDS: HYDROmorphone 0.5 MG/0.5 ML SYRINGE IVP PRN (02:53)
[2018-09-03] MEDS: LEVOTHYROXINE 125 MCG TAB PO SCH (05:57)
[2018-09-03] MEDS: LACTATED RINGERS 1,000 ML IV SCH (07:56)
[2018-09-03] MEDS: ceFAZolin IN SWFI 2 GM/20 ML SYRINGE IVP SCH ×2 (08:22→15:36)
[2018-09-03] MEDS: KETOROLAC 30 MG/ML 1 ML VIAL IVP SCH ×2 (08:22→14:04)
[2018-09-03] MEDS: HEPARIN SODIUM,PORCINE 5,000 UNIT/ML 1 ML VIAL SQ SCH (08:22)
[2018-09-03] MEDS: RIFAMPIN 300 MG CAP PO SCH (08:23)
[2018-09-03 09:33] VITALS: BP 108/65; PULSE 68
--- NOTE | 2018-09-03 11:24 | P.DS ---
Providers Date of admission: 09/01/18 09:36 Attending physician: Omer Rodriguez Consults: 09/01/18 15:45 Consult Physician Routine Consulting Provider: Antwon Valles Consult Reason/Comments: Left foot infection Do you want consulting provider notified?: Yes 09/01/18 16:08 Consult Physician Routine Consulting Provider: Neida Rodriguez III Consult Reason/Comments: Medical management, DVT prophylaxis Do you want consulting provider notified?: Yes 09/01/18 16:41 Consult Physician Routine Consulting Provider: Sergei Pendleton Consult Reason/Comments: medical management DVT Prophylaxis Do you want consulting provider notified?: Already Contacted Primary care physician: Neida Rodriguez [facility] Course: This patient is a 62-year-old male with a past medical history of hyperlipidemia, hypothyroidism, TIA currently on Plavix was direct admitted to [facility] on 09/01/18 for an incision infection after being seen in the office by Dr. Rodriguez earlier in the day. The patient underwent a left first MTP arthrodesis on 07/16/18 at the [facility]. He was recently placed on oral antibiotics for concerns of an incision infection. Patient re-checked in the office 09/01/18, with worsening of symptoms, persistent redness and drainage. Cultures taken in the office came back as MSSA. Patient underwent an I&D of the left first MTP joint, with incisional wound vac placement by Dr. Rodriguez on 09/01/18. He was admitted under the care of Dr. Rodriguez, with an internal medicine and infectious disease consultation. Procedure was performed without completion or sequelae. The patient is doing well postoperatively. Vital signs are stable on postoperative day #2. The patient was examined bedside today with Dr. Rodriguez and Dr. Valles. is bedside. The patient had a PICC line placed yesterday afternoon, per infectious disease. The patient is feeling well with decreased pain in the left foot. He states he has been remaining non-weightbearing on the left foot, knee scooter was ordered yesterday. He denies any new complaints or concerns today. Wound VAC was taken down bedside. On examination of the left foot, there is an incision on the dorsal first MTP joint, with intact nylon sutures and well approximated skin edges. There is mild erythema surrounding incision. There is no drainage, fluctuance. The foot is warm and well-perfused with brisk capillary refill. Sensation is intact to light touch of the dorsal and plantar foot, as well as first dorsal webspace. The patient is discharged home pending medical clearance today. Please refer to the [facility] rec for accurate list of medications. Patient Condition at Discharge: Fair Plan - Discharge Summary Discharge Rx Participant: Yes New Discharge Prescriptions: New ceFAZolin [Kefzol] 2 gm IVP Q8HR #42 ml Hydrocodone/Acetaminophen [Belding 5-325] 1 tab PO Q4-6H PRN #40 tab PRN Reason: Pain No Action Berclair-3 Fatty Acids/Fish Oil [Fish Oil 1,000 mg Softgel] 1 cap PO BID Aspirin 81 mg PO DAILY Citalopram Hydrobromide [CeleXA] 20 mg PO HS ALPRAZolam [Xanax] 0.5 mg PO DAILY PRN PRN Reason: Anxiety Levothyroxine Sodium [Synthroid] 125 mcg PO DAILY Atorvastatin [Lipitor] 40 mg PO HS Garlic 1 tab PO BID Clopidogrel Bisulfate [Plavix] 75 mg PO DAILY Discharge Medication List Berclair-3 Fatty Acids/Fish Oil [Fish Oil 1,000 mg Softgel] 1 cap PO BID 07/07/16 [History] Aspirin 81 mg PO DAILY 11/28/16 [History] ALPRAZolam [Xanax] 0.5 mg PO DAILY PRN 11/10/17 [History] Atorvastatin [Lipitor] 40 mg PO HS 11/10/17 [History] Citalopram Hydrobromide [CeleXA] 20 mg PO HS 11/10/17 [History] Levothyroxine Sodium [Synthroid] 125 mcg PO DAILY 11/10/17 [History] Clopidogrel Bisulfate [Plavix] 75 mg PO DAILY 09/01/18 [History] Garlic 1 tab PO BID 09/01/18 [History] ceFAZolin [Kefzol] 2 gm IVP Q8HR #42 ml 09/02/18 [Rx] Hydrocodone/Acetaminophen [Belding 5-325] 1 tab PO Q4-6H PRN #40 tab 09/03/18 [Rx] Follow up Appointment(s)/Referral(s): [facility] [NON-STAFF] - As Needed (knee scooter) [facility],Infusion [NON-STAFF] - As Needed Residential [facility],Health [NON-STAFF] - As Needed Omer Rodriguez MD [Medical Doctor] - 1 Week Ambulatory/Diagnostic Orders: Basic Metabolic Panel [LAB.AMB] Location: None Selected Complete Blood Count w/diff [LAB.AMB] Location: None Selected Miscellaneous Lab Order [LAB.AMB] Location: None Selected Activity/Diet/Wound Care/Special Instructions: -Strict non-weight bearing on your left leg. Use crutches, knee scooter, or a walker to ambulate. -Wound care and antibiotics per infectious disease team. Cultures showing staph aureus. -Elevate and ice operative leg to help reduce swelling and control pain. -Take pain medications as prescribed. Take Colace as a stool softener. -Follow-up appointment with Dr. Rodriguez in the office in 1 week. -Call the office with any questions or concerns, Patient needs knee scooter for left foot osteomyelitis/non weight bearing status Discharge Disposition: HOME WITH HOME HEALTH SERVICES
--- NOTE | 2018-09-03 11:43 | P.PN ---
Subjective No overnight events patient is clinically doing well medically stable to be discharged. She'll medication or consideration was reviewed no changes for made from medicine perspective. Constitutional: Denied any fatigue denied any fever. Cardio vascular: denied any chest pain, palpitations Gastrointestinal denied any nausea vomiting Pulmonary: Denied any shortness of breath cough Neurologic denied any new focal deficits All inpatient medications were reviewed and appropriate changes in these medications as dictated in the interval history and assessment and plan. Objective - Vital Signs Vital signs: Vital Signs Temp 98.4 F 09/03/18 07:10 Pulse 68 09/03/18 07:10 Resp 16 09/03/18 07:10 BP 108/65 09/03/18 07:10 Pulse Ox 95 09/03/18 07:10 Intake & Output 09/02/18 09/03/18 09/03/18 18:59 06:59 18:59 Intake Total 1568 950 740 Output Total 2700 850 700 Balance -1132 100 40 Weight 87.997 kg Intake: Intake, IV Titration 800 800 Amount Lactated Ringers 1,000 ml 800 800 @ 100 mls/hr IV .Q10H [facility] Rx#:[id number] Oral 768 150 740 Output: Urine 2700 850 700 Other: Voiding Method Urinal # Voids 4 1 - Exam PHYSICAL EXAMINATION: GENERAL: The patient is alert and oriented x3, not in any acute distress. Well developed, well nourished. HEENT: Pupils are round and equally reacting to light. EOMI. No scleral icterus. No conjunctival pallor. Normocephalic, atraumatic. No pharyngeal erythema. No thyromegaly. CARDIOVASCULAR: S1 and S2 present. No murmurs, rubs, or gallops. PULMONARY: Chest is clear to auscultation, no wheezing or crackles. ABDOMEN: Soft, nontender, nondistended, normoactive bowel sounds. No palpable organomegaly. MUSCULOSKELETAL: No joint swelling or deformity. EXTREMITIES: No cyanosis, clubbing, or pedal edema. Wound VAC on the left side NEUROLOGICAL: Gross neurological examination did not reveal any focal deficits. SKIN: No rashes. - Labs CBC & Chem 7: 09/02/18 07:55 09/02/18 07:55 Labs: Microbiology - Last 24 Hours (Table) 09/01/18 15:30 Gram Stain - Preliminary Foot - Left Wound Culture - Preliminary Presumptive Staph aureus 09/01/18 17:09 Blood Culture - Preliminary Blood No Growth after 24 hours 09/01/18 17:28 Blood Culture - Preliminary Blood No Growth after 24 hours Assessment and Plan Plan: -Infected incisional wound on the left for first metatarsal area ration is a wound VAC and Ativan exacerbation infectious disease hyperlipidemia -Hypothyroidism For above-mentioned chronic medical problems patient can be resumed on his home medications upon discharge
--- NOTE | 2018-09-03 22:20 | P.PN ---
Subjective Progress Note Date: 09/03/18 Wilfredo 62-year-old male well-known to me presents to Hospital because of difficulties related to his left first metatarsophalangeal joint. There is noted the patient has a difficulty with the fracture to that foot several years ago. Was having increasing difficulty deciding constantly arthrod esis to the first metatarsophalangeal joint occurred on 07/16/2018. The patient was doing well when he suddenly had increasing difficulties with pain and swelling to the site. Because this was taken to the operating room where the site was incised and drained. There was evidence at the infection did track to the hardware at the site. No significant abscess was found. Preadmission cultures with MSSA. The patient and his have adjusted well after the of their daughter. He is enjoying his residential, they did go on a [place] cruise and he was not ill at that time. 09/03/2018 patient feels much better with the wound vac removed. Ready for discharge to home. Objective - Vital Signs Vital signs: Vital Signs Temp 98.4 F 09/03/18 07:10 Pulse 68 09/03/18 07:10 Resp 16 09/03/18 07:10 BP 108/65 09/03/18 07:10 Pulse Ox 95 09/03/18 07:10 Intake & Output 09/03/18 09/03/18 09/04/18 06:59 18:59 06:59 Intake Total 950 1280 Output Total 850 700 Balance 100 580 Intake: Intake, IV Titration 800 Amount Lactated Ringers 1,000 ml 800 @ 100 mls/hr IV .Q10H [facility] Rx#:[id number] Oral 150 1280 Output: Urine 850 700 Other: Voiding Method Urinal # Voids 4 2 - Exam Wilfredo 62-year-old male in no acute distress HEENT: Anicteric conjunctiva are pink and moist nasal mucosa grossly intact without significant lesions, there is no thrush. Neck: The neck is supple without significant lymphadenopathy or thyromegaly. Lungs: Good bilateral air entry without significant crackles or wheezing. There is no significant bronchial sounds. There is no egophony or dullness. Heart: Regular rate and rhythm with an audible S1-S2, no S3 no S4. There is no significant murmur click or rub, PMI was nondisplaced. Abdomen: Positive bowel sounds soft and nontender without palpable masses or organomegaly. There was no guarding or rebound. Extremities: The upper extremities have excellent pulses they are symmetric, no significant petechiae or telangiectasia. No splinter hemorrhages were noted. Right foot shows evidence of no acute changes. Left foot shows evidence of a surgical dressing that place as well as a wound VAC that is in place over the first metatarsophalangeal joint area. There is intact sensation over the toes. The patient does complain of significant pain at the surgical site. Surgical relates the site has been closed.PICC left arm intact. Neuro: Awake alert oriented to person place and time. There are no acute new gross focal sensory motor deficits. - Labs CBC & Chem 7: 09/02/18 07:55 09/02/18 07:55 Labs: Microbiology - Last 24 Hours (Table) 09/01/18 17:09 Blood Culture - Preliminary Blood No Growth after 48 hours 09/01/18 17:28 Blood Culture - Preliminary Blood No Growth after 48 hours 09/01/18 15:30 Gram Stain - Final Foot - Left Wound Culture - Final Staphylococcus aureus Laboratory Results WBC 7.4 k/uL (3.8-10.6) 09/02/18 07:55 RBC 4.44 m/uL (4.30-5.90) 09/02/18 07:55 Hgb 13.2 gm/dL (13.0-17.5) 09/02/18 07:55 Hct 40.3 % (39.0-53.0) 09/02/18 07:55 MCV 90.8 fL (80.0-100.0) 09/02/18 07:55 MCH 29.7 pg (25.0-35.0) 09/02/18 07:55 MCHC 32.8 g/dL (31.0-37.0) 09/02/18 07:55 RDW 13.4 % (11.5-15.5) 09/02/18 07:55 Plt Count 347 k/uL (150-450) 09/02/18 07:55 Neutrophils % 63 % 09/02/18 07:55 Lymphocytes % 26 % 09/02/18 07:55 Monocytes % 4 % 09/02/18 07:55 Eosinophils % 4 % 09/02/18 07:55 Basophils % 1 % 09/02/18 07:55 Neutrophils # 4.7 k/uL (1.3-7.7) 09/02/18 07:55 Lymphocytes # 1.9 k/uL (1.0-4.8) 09/02/18 07:55 Monocytes # 0.3 k/uL (0-1.0) 09/02/18 07:55 Eosinophils # 0.3 k/uL (0-0.7) 09/02/18 07:55 Basophils # 0.1 k/uL (0-0.2) 09/02/18 07:55 ESR 14 mm/hr (0-15) 09/01/18 10:48 PT 10.0 sec (9.0-12.0) 09/01/18 10:48 INR 0.9 (<1.2) 09/01/18 10:48 APTT 24.1 sec (22.0-30.0) 09/01/18 10:48 Sodium 137 mmol/L (137-145) 09/02/18 07:55 Potassium 4.4 mmol/L (3.5-5.1) 09/02/18 07:55 Chloride 107 mmol/L (98-107) 09/02/18 07:55 Carbon Dioxide 24 mmol/L (22-30) 09/02/18 07:55 Anion Gap 6 mmol/L 09/02/18 07:55 BUN 13 mg/dL (9-20) 09/02/18 07:55 Creatinine 0.84 mg/dL (0.66-1.25) 09/02/18 07:55 Est GFR (CKD-EPI)AfAm >90 (>60 ml/min/1.73 sqM) 09/02/18 07:55 Est GFR (CKD-EPI)NonAf >90 (>60 ml/min/1.73 sqM) 09/02/18 07:55 Glucose 97 mg/dL (74-99) 09/02/18 07:55 Calcium 8.9 mg/dL (8.4-10.2) 09/02/18 07:55 C-Reactive Protein 7.6 mg/L (<10.0) 09/01/18 10:48 Blood Type A Positive 09/01/18 10:51 Blood Type Confirm A Positive 09/01/18 12:20 Blood Type Recheck CABO Indicated 09/01/18 10:51 Antibody Screen NEGATIVE 09/01/18 10:51 Spec Expiration Date 09/04/2018 - 2351 09/01/18 10:51 Microbiology 09/01/18 17:09 Blood Blood Culture - Preliminary No Growth after 48 hours 09/01/18 17:28 Blood Blood Culture - Preliminary No Growth after 48 hours 09/01/18 15:30 Foot - Left Gram Stain - Final 09/01/18 15:30 Foot - Left Wound Culture - Final Staphylococcus aureus 09/01/18 15:30 Foot - Left Anaerobic Culture - Preliminary 09/01/18 15:30 Foot - Left Fungal Culture - Preliminary Assessment and Plan (1) MSSA (methicillin susceptible Staphylococcus aureus) infection Narrative/Plan: Very pleasant 62-year-old male [facility] because of difficulties with his left first metatarsophalangeal joint arthrodesis. The site opened and had evidence of infection. Despite oral outpatient antibiotic therapy did not worsen, she was taken to the operating room and the site was incised and drained. The opening to tract down to hardware. The site was lavaged and a surgery andwas able to be closed. Negative pressure therapy has been placed over the site. Patient will have a PICC line placed for his outpatient intravenous antibiotic therapy. With current cultures Ancef is being planned which can be done via IV push. Weekly blood work has been requested patient is still having significant amount of pain and hopefully will have improved pain control by tomorrow. Request for VAC in the outpatient setting as well as the outpatient given his antibiotic therapy is being arranged. He will follow in the office next week. MSSA isolated from the foot, no other pathogens. Doing well with the Ancef arranged for home. Pain is much improved wound care with Amrita was requested. Follow up in office in 2 weeks earlier if problems Status: Acute Code(s): A49.01 - METHICILLIN SUSCEP STAPH INFECTION, UNSP SITE SNOMED Code(s): 745278691 (2) Left foot infection Status: Acute Code(s): L08.9 - LOCAL INFECTION OF THE SKIN AND SUBCUTANEOUS TISSUE, UNSP SNOMED Code(s): 935192269
== END 2018-09-03 16:10 | disposition home health service (06) | DRG 858 ==
LOC: 4SSUR 09:36
PROVIDERS: ADMIT Orthopaedic Surgery; ATTEND Orthopaedic Surgery
PROC: 02HV33Z Insertion of Infusion Device into Superior Vena Cava, Percutaneous Approach (ICD-10-PCS; 2018-09-01)
PROC: 0JBR0ZZ Excision of Left Foot Subcutaneous Tissue and Fascia, Open Approach (ICD-10-PCS; principal; 2018-09-01 07:30)
DX: T81.41XA Infection following a procedure, superficial incisional surgical site, initial encounter (principal); L08.9 Local infection of the skin and subcutaneous tissue, unspecified; E78.5 Hyperlipidemia, unspecified; E03.9 Hypothyroidism, unspecified; B95.61 Methicillin susceptible Staphylococcus aureus infection as the cause of diseases classified elsewhere; Z79.02 Long term (current) use of antithrombotics/antiplatelets; Z79.82 Long term (current) use of aspirin; Z79.890 Hormone replacement therapy; Z79.899 Other long term (current) drug therapy; Z80.9 Family history of malignant neoplasm, unspecified; Z90.49 Acquired absence of other specified parts of digestive tract; Z86.73 Personal history of transient ischemic attack (TIA), and cerebral infarction without residual deficits; Z98.1 Arthrodesis status
CPT/HCPCS: 36573; 80048; 85025; 85610; 85652; 85730; 86140; 86850; 86900; 86901; 87040; 87070; 87075; 87077; 87102; 87186; 87205; 93005

== ENCOUNTER 2018-09-07 16:14 | Emergency (ER) | payer BC ==
[2018-09-07 16:22] VITALS: BP 127/83; TEMP 98.5
--- NOTE | 2018-09-07 16:31 | ED ---
Recheck HPI - General Chief Complaint: Recheck/Abnormal Lab/Rx Stated Complaint: Pic line bleeding Time Seen by Provider: 09/07/18 16:29 Source: patient, RN notes reviewed, old records reviewed Mode of arrival: ambulatory Limitations: no limitations - History of Present Illness Initial Comments: This is a 62-year-old male the ER for evaluation presents today for evaluation regarding bleeding from PICC line site. Patient PICC line changed and now is bleeding from site. Patient is on current blood thinning medication. He denies symptoms of lightheadedness dizziness or weakness. MD Complaint: wound re-check -: hour(s) Returns Today for: wound recheck Context: other (Increased bleeding from site) Treatments Prior to Arrival: dressings - Related Data Home Medications Medication Instructions Recorded Confirmed [place]-3 Fatty Acids/Fish Oil [Fish 1 cap PO BID 07/07/16 09/07/18 Oil 1,000 mg Softgel] Aspirin 81 mg PO DAILY 11/28/16 09/07/18 ALPRAZolam [Xanax] 0.5 mg PO DAILY PRN 11/10/17 09/07/18 Citalopram Hydrobromide [CeleXA] 20 mg PO HS 11/10/17 09/07/18 Levothyroxine Sodium [Synthroid] 125 mcg PO DAILY 11/10/17 09/07/18 Clopidogrel Bisulfate [Plavix] 75 mg PO DAILY 09/01/18 09/07/18 Garlic 1 tab PO BID 09/01/18 09/07/18 Atorvastatin [Lipitor] 20 mg PO HS 09/07/18 09/07/18 Previous Rx's Medication Instructions Recorded ceFAZolin [Kefzol] 2 gm IVP Q8HR #42 ml 09/02/18 Docusate [Colace] 100 mg PO BID #60 capsule 09/03/18 Hydrocodone/Acetaminophen [[place] 1 tab PO Q4-6H PRN #40 tab 09/03/18 5-325] Allergies Allergy/AdvReac Type Severity Reaction Status Date / Time Iodinated Contrast- Oral and Allergy Swelling Verified 09/07/18 16:38 IV Dye Review of Systems ROS Statement: Those systems with pertinent positive or pertinent negative responses have been documented in the HPI. ROS Other: All systems not noted in ROS Statement are negative. Past Medical History Past Medical History: Hyperlipidemia, Thyroid Disorder History of Any Multi-Drug Resistant Organisms: None Reported Past Surgical History: No Surgical Hx Reported, Cholecystectomy, Heart Catheterization, Orthopedic Surgery Additional Past Surgical History / Comment(s): lt foot Past Anesthesia/Blood Transfusion Reactions: No Reported Reaction Past Psychological History: No Psychological Hx Reported Smoking Status: Never smoker Past Alcohol Use History: None Reported, Rare Past Drug Use History: None Reported - Past Family History Mother Family Medical History: Cancer Sister(s) Family Medical History: Cancer Daughter(s) Family Medical History: Deep Vein Thrombosis (DVT) General Exam Limitations: no limitations General appearance: alert, in no apparent distress Head exam: Present: atraumatic, normocephalic, normal inspection Eye exam: Present: normal appearance, PERRL, EOMI. Absent: scleral icterus, conjunctival injection, periorbital swelling ENT exam: Present: normal exam, mucous membranes moist Neck exam: Present: normal inspection. Absent: tenderness, meningismus, lymphadenopathy Respiratory exam: Present: normal lung sounds bilaterally. Absent: respiratory distress, wheezes, rales, rhonchi, stridor Cardiovascular Exam: Present: regular rate, normal rhythm, normal heart sounds. Absent: systolic murmur, diastolic murmur, rubs, gallop, clicks GI/Abdominal exam: Present: soft, normal bowel sounds. Absent: distended, tenderness, guarding, rebound, rigid Extremities exam: Present: normal inspection, full ROM, normal capillary refill. Absent: tenderness, pedal edema, joint swelling, calf tenderness Back exam: Present: normal inspection Neurological exam: Present: alert, oriented X3, CN II-XII intact Psychiatric exam: Present: normal affect, normal mood Skin exam: Present: warm, dry, intact, normal color. Absent: rash Course Vital Signs 09/07/18 16:19 Temperature 98.5 F Pulse Rate 83 Respiratory 20 Rate Blood Pressure 127/83 O2 Sat by Pulse 97 Oximetry - Reevaluation(s) Reevaluation #1: 09/07/18 16:32 Medical record reviewed Reevaluation #2: 09/07/18 17:47 Dressing change, pressor dressing and Gelfoam use, dressing currently clean no bleeding 09/07/18 17:47 Medical Decision Making - Medical Decision Making 62 male here today with bleeding from PICC line site. Patient's bleeding is stopped from the PICC line, dressing is changed and patient can be discharged home, asymptomatic with no weakness lightheadedness or dizziness Disposition Clinical Impression: Bleeding from wound Disposition: HOME SELF-CARE Condition: Good Instructions (If sedation given, give patient instructions): Acute Wound Care (ED) Is patient prescribed a controlled substance at d/c from ED?: No Referrals: Neida Rodriguez III, MD [Primary Care Provider] - 1-2 days
[2018-09-07 18:28] VITALS: PULSE 60; RESP 18
== END 2018-09-07 18:19 | disposition home or self-care (01) ==
LOC: EC 16:14
DX: T82.838A Hemorrhage due to vascular prosthetic devices, implants and grafts, initial encounter (principal); E78.5 Hyperlipidemia, unspecified; E07.9 Disorder of thyroid, unspecified; Z79.82 Long term (current) use of aspirin; Z79.890 Hormone replacement therapy; Z79.899 Other long term (current) drug therapy; Z91.041 Radiographic dye allergy status; Z95.5 Presence of coronary angioplasty implant and graft
CPT/HCPCS: 99283

== ENCOUNTER 2019-10-21 14:51 | Observation (INO) | payer MEDICARE, BC ==
[2019-10-21] MEDS ORDERED: SODIUM CHLORIDE 0.9% 500 ML 500 ML IV STA (15:20)
--- NOTE | 2019-10-21 15:24 | ED ---
Chest Pain HPI - General Chief Complaint: Chest Pain Stated Complaint: Syncope Time Seen by Provider: 10/21/19 14:59 Source: patient, EMS Mode of arrival: EMS Limitations: no limitations - History of Present Illness Initial Comments: Patient is a 63-year-old male, with history of TIA, presenting to the emergency department via EMS after having a near syncopal episode as well as chest pain earlier today. Patient states he was cutting down tree limbs and was pulling him out to the brush area when he felt overwhelming sensation of exhaustion. Patient states he sat down for a little bit and needed to go have a few bowel movements. Patient states he then walked to his vehicle and again had an overwhelming sensation of exhaustion as well as intermittent chest discomfort that went from his epigastric area up into the left side of his chest. Patient denies any chest pain at this time. He denies any shortness of breath, recent fever or chills. He denies any abdominal pain at this time. He admits to history of cholecystectomy, no other dermal surgeries. He denies any nausea or vomiting. He denies any recent fever or chills. He states his last stress test was approximately 2-3 years ago and there were no abnormalities found. He denies any other complaints at this time. Upon arrival to the ER, his vital signs are stable. - Related Data Home Medications Medication Instructions Recorded Confirmed [place]-3 Fatty Acids/Fish Oil [Fish 1 cap PO BID 07/07/16 10/21/19 Oil 1,000 mg Softgel] Aspirin 81 mg PO DAILY 11/28/16 10/21/19 Citalopram Hydrobromide [CeleXA] 20 mg PO HS 11/10/17 10/21/19 Clopidogrel Bisulfate [Plavix] 75 mg PO DAILY 09/01/18 10/21/19 Garlic 1 tab PO BID 09/01/18 10/21/19 Atorvastatin [Lipitor] 20 mg PO HS 09/07/18 10/21/19 ALPRAZolam [Xanax] 0.25 mg PO DAILY PRN 10/21/19 10/21/19 Levothyroxine Sodium 137 mcg PO DAILY 10/21/19 10/21/19 Allergies Allergy/AdvReac Type Severity Reaction Status Date / Time Iodinated Contrast Media Allergy Swelling Verified 10/21/19 16:31 [Iodinated Contrast- Oral and IV Dye] Review of Systems ROS Statement: Those systems with pertinent positive or pertinent negative responses have been documented in the HPI. ROS Other: All systems not noted in ROS Statement are negative. EKG Findings - EKG Comments: EKG Findings:: EKG was normal sinus rhythm, incomplete RBBB, no signs of acute ischemia. Ventricular rate 80, TN interval 140, QT 384. Past Medical History Past Medical History: Hyperlipidemia, Thyroid Disorder History of Any Multi-Drug Resistant Organisms: None Reported Past Surgical History: No Surgical Hx Reported, Cholecystectomy, Heart Cath eterization, Orthopedic Surgery Additional Past Surgical History / Comment(s): lt foot Past Anesthesia/Blood Transfusion Reactions: No Reported Reaction Past Psychological History: No Psychological Hx Reported Smoking Status: Never smoker Past Alcohol Use History: None Reported, Rare Past Drug Use History: None Reported - Past Family History Mother Family Medical History: Cancer Sister(s) Family Medical History: Cancer Daughter(s) Family Medical History: Deep Vein Thrombosis (DVT) Father Family Medical History: Myocardial Infarction (NE) Additional Family Medical History / Comment(s): Father of a massive NE at the age of 57 yrs. General Exam - General Exam Comments Initial Comments: GENERAL: Well-appearing, well-nourished and in no acute distress. HEAD: Atraumatic, normocephalic. EYES: Pupils equal round and reactive to light, extraocular movements intact, sclera anicteric, conjunctiva are normal. ENT: TMs normal, nares patent, oropharynx clear without exudates. Moist mucous membranes. NECK: Normal range of motion, supple without lymphadenopathy or JVD. LUNGS: Breath sounds clear to auscultation bilaterally and equal. No wheezes rales or rhonchi. HEART: Regular rate and rhythm without murmurs, rubs or gallops. ABDOMEN: Soft, nontender, normoactive bowel sounds. No guarding, no rebound. No masses appreciated. : Deferred EXTREMITIES: Normal range of motion, no pitting or edema. No clubbing or cyanosis. NEUROLOGICAL: Cranial nerves II through XII grossly intact. Normal speech, normal gait. PSYCH: Normal mood, normal affect. SKIN: Warm, Dry, normal turgor, no rashes or lesions noted. Limitations: no limitations Course Vital Signs 10/21/19 10/21/19 10/21/19 15:07 17:20 17:30 Temperature 98.9 F Pulse Rate 80 75 75 Pulse Rate [ Sitting Pulse Oximetery] Respiratory 18 18 18 Rate Blood Pressure 128/84 147/99 139/90 Blood Pressure [Left Arm] O2 Sat by Pulse 99 98 97 Oximetry 10/21/19 10/21/19 10/22/19 20:45 23:00 03:00 Temperature Pulse Rate 79 73 56 L Pulse Rate [ Sitting Pulse Oximetery] Respiratory 18 18 18 Rate Blood Pressure 133/95 115/75 126/81 Blood Pressure [Left Arm] O2 Sat by Pulse 96 96 94 L Oximetry 10/22/19 10/22/19 10/22/19 04:07 08:00 12:00 Temperature 98.1 F Pulse Rate 53 L Pulse Rate [ Sitting Pulse Oximetery] Respiratory 15 15 15 Rate Blood Pressure 124/83 Blood Pressure [Left Arm] O2 Sat by Pulse 94 L Oximetry 10/22/19 14:11 Temperature 98 F Pulse Rate Pulse Rate [ 77 Sitting Pulse Oximetery] Respiratory 12 Rate Blood Pressure Blood Pressure 135/80 [Left Arm] O2 Sat by Pulse 96 Oximetry Chest Pain MDM - MDM Patient 63-year-old female here via EMS for an ER syncopal episode as well as intermittent chest discomfort that happened prior to arrival. Vitals are stable. EKG shows no signs of acute ischemia. Exam is unremarkable. Lab work shows no acute findings, troponin is normal, urine is normal. Chest x-ray shows no acute findings. I discussed these findings with the patient. Considering he developed chest pain, near syncopal episode while doing physical activity, I recommended admission for serial troponins and cardiac consult. Patient is in agreement with this plan of care. Patient was accepted by Dr. Storm with cardiac consult. Case discussed with Dr. Jhaveri. Disposition Clinical Impression: Chest pain, Near syncope Disposition: ADMITTED IP TO THIS [facility] Condition: Stable Decision Date: 10/21/19 Decision Time: 16:56
--- NOTE | 2019-10-21 15:41 | XR ---
EXAMINATION TYPE: XR chest 2V DATE OF EXAM: 10/21/2019 COMPARISON: 09/28/2016 INDICATION: Chest pain TECHNIQUE: Frontal and lateral views of the chest are obtained. FINDINGS: The heart size is normal. The pulmonary vasculature is normal. The lungs are clear. IMPRESSION: 1. No acute pulmonary process.
[2019-10-21 15:43] LABS: Basophils # (A) 0.1 k/uL (0-0.2); Basophils % (A) 1 %; Eosinophils # (A) 0.2 k/uL (0-0.7); Eosinophils % (A) 3 %; HCT 41.3 % (39.0-53.0); Lymphocytes # (A) 1.3 k/uL (1.0-4.8); Lymphocytes % (A) 16 %; MCH 30.7 pg (25.0-35.0); MCV 90.5 fL (80.0-100.0); Mean Platelet Volume 6.7; Monocytes # (A) 0.4 k/uL (0-1.0); Monocytes % (A) 6 %; Neutrophils # (A) 5.9 k/uL (1.3-7.7); Neutrophils % (A) 75 %; Platelet Count 289 k/uL (150-450); RBC 4.57 m/uL (4.30-5.90); RDW 12.7 % (11.5-15.5)
[2019-10-21 15:46] LABS: Appearance,Urine Clear (Clear); Bilirubin,Urine Negative (Negative); Blood,Urine Trace (Negative); Color,Urine Yellow; Glucose,Urine (UA) Negative (Negative); Hyaline Casts,Urine 3 /lpf (0-2); Ketones,Urine Negative (Negative); Leukocyte Esterase,Urine Negative (Negative); Mucus,Urine Rare /hpf; Nitrite,Urine Negative (Negative); PH, Urine 6.5 (5.0-8.0); Protein,Urine Negative (Negative); RBC,Urine 4 /hpf (0-5); Specific Gravity,Urine 1.011 (1.001-1.035); Urobilinogen,Urine <2.0 mg/dL (<2.0); WBC,Urine <1 /hpf (0-5)
[2019-10-21 15:58] LABS: ALT 38 U/L (4-49); AST 39 U/L (17-59); African American GFR (CKD) >90 (>60 ml/min/1.73 sqM); Albumin 4.3 g/dL (3.5-5.0); Alkaline Phosphatase 68 U/L (38-126); Anion Gap 7 mmol/L; Blood Urea Nitrogen 21 mg/dL (9-20); Calcium 9.2 mg/dL (8.4-10.2); Carbon Dioxide 26 mmol/L (22-30); Chloride 102 mmol/L (98-107); Glucose 89 mg/dL (74-99); Magnesium 2.1 mg/dL (1.6-2.3); Non-African American GFR(CKD) 88 (>60 ml/min/1.73 sqM); Potassium 4.1 mmol/L (3.5-5.1); Sodium 135 mmol/L (137-145); Total Bilirubin 0.2 mg/dL (0.2-1.3); Total Protein 6.8 g/dL (6.3-8.2)
[2019-10-21 16:11] LABS: Partial Thromboplastin Time 21.3 sec (22.0-30.0)
[2019-10-21] MEDS ORDERED: NITROGLYCERIN SL TABS 0.4 MG TAB SUBLINGUAL PRN (16:50)
[2019-10-21] MEDS ORDERED: ALPRAZolam 0.25 MG TAB PO PRN (18:14)
[2019-10-21] MEDS ORDERED: TEMAZEPAM 15 MG CAP PO PRN (18:15)
[2019-10-21] MEDS ORDERED: NON FORMULARY DRUG (Omega-3 Fatty Acids/Fish Oil [Fish Oil 1,000 Mg Softgel] 1 CAP) PO SCH (21:00)
[2019-10-21] MEDS ORDERED: ATORVASTATIN 20 MG TAB PO SCH (21:00)
[2019-10-21] MEDS ORDERED: CITALOPRAM HYDROBROMIDE 20 MG TAB PO SCH (21:00)
--- NOTE | 2019-10-22 00:40 | HP ---
HISTORY AND PHYSICAL CHIEF COMPLAINT: Chest pain. HISTORY OF PRESENT ILLNESS: This 63-year-old gentleman with a past history of hyperlipidemia, hypothyroidism, history of cholecystectomy, cardiac catheterization being followed by Dr. Rodriguez in the outpatient setting was admitted with a syncopal episode as well as chest pain. The patient was working in the yard with some brush with some heavy work and the patient felt abdominal pain which was radiating up the epigastrium. The patient had profuse sweating and the patient had overwhelmed sensation of exhaustion and the patient came to [facility] and admitted for further evaluation and treatment. Patient had a stress test about 2 to 3 years ago which was reported negative. There is no history of fever, rigors. No history of headache, seizures at this time. PAST MEDICAL HISTORY: Hyperlipidemia, history hypothyroidism, history of cardiac catheterization, history of cholecystectomy. MEDICATIONS: Medications are: 1. Aspirin 81 mg daily. 2. Lipitor 20 mg at bedtime. 3. Xanax 0.25 daily p.r.n. 4. Levothyroxine 137 mcg p.o. daily. 5. Garlic 1 tablet p.o. b.i.d. 6. Plavix 75 mg p.o. daily. 7. Celexa 20 mg at bedtime. 8. [place]-3 fatty acid one p.o. b.i.d. ALLERGIES: IODINATED CONTRAST DYE. FAMILY HISTORY: History of cancer in the family. SOCIAL HISTORY: No history of smoking. No history of alcohol intake. REVIEW OF SYSTEMS: ENT: No diminished hearing or diminished vision. CARDIOVASCULAR SYSTEM: As mentioned earlier. RESPIRATORY SYSTEM: As mentioned earlier. GI: As mentioned earlier. : No dysuria. NERVOUS SYSTEM: No numbness or weakness. ALLERGY/IMMUNOLOGY: No asthma or hay fever. MUSCULOSKELETAL: As mentioned earlier. HEMATOLOGY: No history of anemia. ENDOCRINE: As mentioned earlier. CONSTITUTIONAL: As mentioned earlier. DERMATOLOGY: Negative. RHEUMATOLOGY: Negative. PSYCHIATRY: As mentioned earlier PHYSICAL EXAMINATION: The patient is alert and oriented x3. Pulse is 80, blood pressure 128/84, respiration 18, temperature 98.9, pulse ox 99% on room air. HEENT: Conjunctivae normal. Oral mucosa moist. NECK: No jugular venous distention. No carotid bruit. No lymph node enlargement. CARDIOVASCULAR: S1, S2 muffled. No S3, no S4. RESPIRATORY SYSTEM: Breath sounds diminished in the bases. No rhonchi. No crackles. ABDOMEN: Soft, nontender. No mass palpable. LEGS: No edema, no swelling. NERVOUS SYSTEM: Higher function as mentioned earlier. Moves all 4 limbs. No focal motor or sensory deficits. LYMPHATICS: No lymphadenopathy of the neck, axillae or groin. SKIN: No ulcer, rash or bleeding. JOINTS: No active deforming arthropathy. LABS: CBC within normal limits. Sodium 135, BUN is 21. ASSESSMENT: 1. Chest pain possible unstable angina. 2. Syncope for evaluation possible vasovagal. 3. Hyponatremia. 4. History of hyperlipidemia. 5. Hypothyroidism. 6. History of cholecystectomy. 7. History of cardiac catheterization. 8. History of degenerative joint disease. RECOMMENDATIONS AND DISCUSSION: This 63-year-old gentleman who presented with multiple medical issues, we will monitor the patient closely, continue the current medications, continue symptomatic treatment. Unstable angina protocol. Cardiology consultation. Serial troponins. Otherwise, I would also recommend orthostatic vitals. Repeat labs. Possible stress test. Keep n.p.o. after midnight. Guarded prognosis. Further recommendations to follow. MMODL / IJN: [id number] /
[2019-10-22] MEDS ORDERED: LEVOTHYROXINE 137 MCG TAB PO SCH (06:30)
[2019-10-22] MEDS ORDERED: PANTOPRAZOLE 40 MG TABLET PO SCH (07:30)
--- NOTE | 2019-10-22 07:42 | P.CRDCN ---
History of Present Illness Consult date: 10/22/19 Chief complaint: Chest pain History of present illness: This is a very pleasant 63-year-old gentleman with a past medical history significant for TIA presented to the hospital complaining of chest discomfort. He was in his usual state of health when he was working at home yesterday when he started experiencing discomfort, in the mid of the chest, as a sharp kind of discomfort, without any radiation to the arms or neck or shoulders and without any associated symptoms of sweating, dizziness, heart racing or syncope. The patient stated that the discomfort lasted for about 15 minutes. No loss of consciousness or syncope. The EKG showed sinus rhythm without any significant ST or T-wave abnormalities. The cardiac enzymes came in to be unremarkable. No coronary artery disease or prior coronary revascularization in the past. I am going to schedule the patient to undergo a stress test to rule out severe underlying coronary artery disease. Past Medical History Past Medical History: Hyperlipidemia, Thyroid Disorder History of Any Multi-Drug Resistant Organisms: None Reported Past Surgical History: No Surgical Hx Reported, Cholecystectomy, Heart Catheterization, Orthopedic Surgery Additional Past Surgical History / Comment(s): lt foot Past Anesthesia/Blood Transfusion Reactions: No Reported Reaction Past Psychological History: No Psychological Hx Reported Smoking Status: Never smoker Past Alcohol Use History: None Reported, Rare Past Drug Use History: None Reported - Past Family History Mother Family Medical History: Cancer Sister(s) Family Medical History: Cancer Daughter(s) Family Medical History: Deep Vein Thrombosis (DVT) Medications and Allergies Home Medications Medication Instructions Recorded Confirmed Type [place]-3 Fatty Acids/Fish Oil [Fish 1 cap PO BID 07/07/16 10/21/19 History Oil 1,000 mg Softgel] Aspirin 81 mg PO DAILY 11/28/16 10/21/19 History Citalopram Hydrobromide [CeleXA] 20 mg PO HS 11/10/17 10/21/19 History Clopidogrel Bisulfate [Plavix] 75 mg PO DAILY 09/01/18 10/21/19 History Garlic 1 tab PO BID 09/01/18 10/21/19 History Atorvastatin [Lipitor] 20 mg PO HS 09/07/18 10/21/19 History ALPRAZolam [Xanax] 0.25 mg PO DAILY PRN 10/21/19 10/21/19 History Levothyroxine Sodium 137 mcg PO DAILY 10/21/19 10/21/19 History Allergies Allergy/AdvReac Type Severity Reaction Status Date / Time Iodinated Contrast Media Allergy Swelling Verified 10/21/19 16:31 [Iodinated Contrast- Oral and IV Dye] Physical Exam Vitals: Vital Signs Temp Pulse Resp BP Pulse Ox 10/22/19 04:07 98.1 F 53 L 15 124/83 94 L 10/22/19 03:00 56 L 18 126/81 94 L 10/21/19 23:00 73 18 115/75 96 10/21/19 20:45 79 18 133/95 96 10/21/19 17:30 75 18 139/90 97 10/21/19 17:20 75 18 147/99 98 10/21/19 15:07 98.9 F 80 18 128/84 99 - Constitutional General appearance: no acute distress - Respiratory Respiratory: bilateral: CTA - Cardiovascular Rhythm: regular Heart sounds: normal: S1, S2 Results 10/21/19 15:21 10/21/19 15:21 Cardiac Enzymes 10/21/19 10/21/19 10/21/19 Range/Units 15:21 15:21 17:36 AST 39 (17-59) U/L Troponin I <0.012 <0.012 (0.000-0.034) ng/mL 10/21/19 Range/Units 22:02 AST (17-59) U/L Troponin I <0.012 (0.000-0.034) ng/mL Coagulation 10/21/19 Range/Units 15:21 PT 10.0 (9.0-12.0) sec APTT 21.3 L (22.0-30.0) sec CBC 10/21/19 Range/Units 15:21 WBC 8.0 (3.8-10.6) k/uL RBC 4.57 (4.30-5.90) m/uL Hgb 14.0 (13.0-17.5) gm/dL Hct 41.3 (39.0-53.0) % Plt Count 289 (150-450) k/uL Comprehensive Metabolic Panel 10/21/19 Range/Units 15:21 Sodium 135 L (137-145) mmol/L Potassium 4.1 (3.5-5.1) mmol/L Chloride 102 (98-107) mmol/L Carbon Dioxide 26 (22-30) mmol/L BUN 21 H (9-20) mg/dL Creatinine 0.91 (0.66-1.25) mg/dL Glucose 89 (74-99) mg/dL Calcium 9.2 (8.4-10.2) mg/dL AST 39 (17-59) U/L ALT 38 (4-49) U/L Alkaline Phosphatase 68 (38-126) U/L Total Protein 6.8 (6.3-8.2) g/dL Albumin 4.3 (3.5-5.0) g/dL Current Medications Generic Name Dose Route Start Last Admin Trade Name Freq PRN Reason Stop Dose Admin Alprazolam 0.25 mg 10/21/19 18:14 Xanax PO DAILY PRN Anxiety Aspirin 325 mg 10/22/19 09:00 Aspirin PO DAILY ANGELINE Atorvastatin Calcium 20 mg 10/21/19 21:00 10/21/19 23:02 Lipitor PO 20 mg HS ANGELINE Administration Citalopram Hydrobromide 20 mg 10/21/19 21:00 10/21/19 23:02 Celexa PO 20 mg HS ANGELINE Administration Clopidogrel Bisulfate 75 mg 10/22/19 09:00 Plavix PO DAILY ANGELINE Levothyroxine Sodium 137 mcg 10/22/19 06:30 Synthroid PO DAILY@0630 [facility] Nitroglycerin 0.4 mg 10/21/19 16:50 Nitrostat SUBLINGUAL Q5M PRN Chest Pain Pantoprazole Sodium 40 mg 10/22/19 07:30 Protonix PO AC-BRKFST ANGELINE Temazepam 15 mg 10/21/19 18:15 Restoril PO HS PRN Insomnia 10/21/19 15:21 10/21/19 15:21 Assessment and Plan Assessment: Assessment Atypical chest pain History of TIA None Acute coronary event was ruled out We'll obtain a stress test Obtain an echocardiogram Follow-up with the patient
[2019-10-22 08:37] LABS: Basophils # (A) 0.1 k/uL (0-0.2); Basophils % (A) 1 %; Eosinophils # (A) 0.3 k/uL (0-0.7); Eosinophils % (A) 4 %; HCT 43.7 % (39.0-53.0); HGB 14.2 gm/dL (13.0-17.5); Lymphocytes # (A) 1.4 k/uL (1.0-4.8); Lymphocytes % (A) 22 %; MCHC 32.5 g/dL (31.0-37.0); MCV 92.3 fL (80.0-100.0); Mean Platelet Volume 6.6; Monocytes # (A) 0.3 k/uL (0-1.0); Monocytes % (A) 5 %; Neutrophils # (A) 4.4 k/uL (1.3-7.7); Neutrophils % (A) 67 %; Platelet Count 258 k/uL (150-450); RBC 4.73 m/uL (4.30-5.90); RDW 12.8 % (11.5-15.5); WBC 6.5 k/uL (3.8-10.6)
[2019-10-22] MEDS ORDERED: ASPIRIN 325 MG TAB PO SCH (09:00)
[2019-10-22] MEDS ORDERED: CLOPIDOGREL 75 MG TAB PO SCH (09:00)
[2019-10-22 09:03] LABS: African American GFR (CKD) >90 (>60 ml/min/1.73 sqM); Anion Gap 6 mmol/L; Blood Urea Nitrogen 18 mg/dL (9-20); Calcium 8.8 mg/dL (8.4-10.2); Carbon Dioxide 26 mmol/L (22-30); Chloride 106 mmol/L (98-107); Cholesterol 196 mg/dL (<200); Glucose 99 mg/dL (74-99); HDL Cholesterol 48 mg/dL (40-60); LDL Cholesterol,Calculated 111 mg/dL (0-99); Non-African American GFR(CKD) >90 (>60 ml/min/1.73 sqM); Potassium 4.4 mmol/L (3.5-5.1); Sodium 138 mmol/L (137-145); Triglycerides 186 mg/dL (<150)
--- NOTE | 2019-10-22 12:47 | ECHOF ---
Referral Reason:cp MEASUREMENTS -------- HEIGHT: 182.9 cm WEIGHT: 89.4 kg BP: RVIDd: 3.0 cm (< 3.3) IVSd: 1.3 cm (0.6 - 1.1) LVIDd: 3.9 cm (3.9 - 5.3) LVPWd: 1.1 cm (0.6 - 1.1) IVSs: 1.7 cm LVIDs: 2.4 cm LVPWs: 1.6 cm LA Diam: 2.8 cm (2.7 - 3.8) LAESV Index (A-L): 10.57 ml/m Ao Diam: 3.7 cm (2.0 - 3.7) AV Cusp: 2.4 cm (1.5 - 2.6) MV EXCURSION: 9.761 mm (> 18.000) MV EF SLOPE: 50 mm/s (70 - 150) EPSS: 1.3 cm MV E Clark: 0.76 m/s MV DecT: 188 ms MV A Clark: 0.85 m/s MV E/A Ratio: 0.89 AR PHT: 699 ms FINDINGS -------- Sinus rhythm. This was a technically good study. The left ventricular size is normal. There is mild concentric left ventricular hypertrophy. Overa ll left ventricular systolic function is normal with, an EF between 60 - 65 %. The right ventricle is normal in size. Normal LA size by volume 22+/-6 ml/m2. The right atrium is normal in size. Interatrial and interventricular septum intact. Aortic valve is trileaflet and is mildly thickened. There is mild aortic regurgitation. The mitral valve is normal. No regurgitation noted Trace/mild (physiologic) pulmonic regurgitation. The aortic root size is normal. Normal inferior vena cava with normal inspiratory collapse consistent with estimated right atrial pre ssure of 5 mmHg. There is no pericardial effusion. CONCLUSIONS -------- 1. Sinus rhythm. 2. This was a technically good study. 3. The left ventricular size is normal. 4. There is mild concentric left ventricular hypertrophy. 5. Overall left ventricular systolic function is normal with, an EF between 60 - 65 %. 6. The right ventricle is normal in size. 7. Normal LA size by volume 22+/-6 ml/m2. 8. The right atrium is normal in size. 9. Interatrial and interventricular septum intact. 10. Aortic valve is trileaflet and is mildly thickened. 11. There is mild aortic regurgitation. 12. The mitral valve is normal. 13. No regurgitation noted 14. Trace/mild (physiologic) pulmonic regurgitation. 15. The aortic root size is normal. 16. Normal inferior vena cava with normal inspiratory collapse consistent with estimated right atrial pressure of 5 mmHg. 17. There is no pericardial effusion. [employer] MANAGER: Freya Ruiz RDCS
[2019-10-22 14:12] VITALS: BP 135/80; PULSE 77; RESP 12; TEMP 98
--- NOTE | 2019-10-22 14:47 | EST ---
EXERCISE STRESS DATE OF SERVICE: 10/22/2019 AGE: 63 SEX: M HT: 72" WT: 200 lbs PROTOCOL: Stress Echo STAGE: 4 DURATION OF EXERCISE: 12 minutes HEART RATE REST: 62 BLOOD PRESSURE REST: 137/89 MAXIMUM HEART RATE ACHIEVED: 155 MAXIMUM BLOOD PRESSURE: 158/77 85% MPHR: 132 100% MPHR: 155 METS: 11.5 INDICATIONS: Chest pain. STRESS DATA: Heart rate 62, pressure is 137/89 mmHg. Baseline EKG showed sinus mechanism. The patient exercised on the treadmill according to [place]obe protocol for a total of 12 minutes and achieved 11.5 METS. Max heart rate was 155, which is about 100% of maximum predicted heart rate. Maximum blood was 158/77 mmHg. Clinically, the patient did not have any symptoms of chest pain or discomfort and the EKG did not show any significant ST or T-wave abnormalities concerning for ischemia. Analysis and echocardiogram images from parasternal long axis view, parasternal short axis view, apical 4 chamber and apical 2 chamber view were obtained as the baseline images, at peak heart rate as well as on recovery. The echocardiogram images overall showed good augmentation in the left ventricular systolic function without any evidence of wall motion abnormalities concerning for ischemia. CONCLUSION: 1. Excellent exercise tolerance. 2. Normal EKG in response to exercise. 3. Normal echocardiogram in response to exercise. 4. Essentially normal stress echocardiogram for the patient. MMODL / IJN: [id number] /
--- NOTE | 2019-10-23 08:29 | DS ---
DISCHARGE SUMMARY FINAL DIAGNOSES: 1. Chest pain, negative stress test, possibly musculoskeletal. 2. Syncope, possibly vasovagal syncope. 3. Hyponatremia. 4. Hyperlipidemia. 5. Hypothyroidism. 6. History of cholecystectomy. 7. History of cardiac catheterization. 8. History of degenerative joint disease. HISTORY OF PRESENT ILLNESS: This 63-year-old gentleman with past medical history of multiple medical problems being followed by Dr. Rodriguez in the outpatient setting was admitted with chest pain. The patient treated symptomatically. The patient also underwent a stress echo showed no evidence of any ischemia. The patient being discharged in stable condition with guarded prognosis with the following advice and medications. On exam, vitals are stable. Cardiovascular S1, S2. Abdomen soft. Nervous system: No focal deficits. CBC, BMP was also within normal limits. LDL was 111. DISCHARGE INSTRUCTIONS: 1. Discharge diet is cardiac diet. 2. Activity limited followup. 3. Follow up with Dr. Rodriguez in 2-3 days. 4. Follow up with Dr. Thomas as recommended. 5. Ecotrin 81 mg p.o. daily. 6. Celexa 20 mg q.h.s. 7. [place]-3 fatty acids p.o. q.h.s. 8. Garlic 1 p.o. b.i.d. 9. Levothyroxine 137 mcg p.o. 10.Lipitor 20 mg q.h.s. 11.Plavix 75 mg. 12.Xanax 0.5 daily. The patient being discharged in stable condition with guarded prognosis. MMODL / IJN: [id number] /
== END 2019-10-22 15:48 | disposition home or self-care (01) ==
LOC: EC 14:51 → 1SOBS 16:55
PROVIDERS: ADMIT Hospitalist; ATTEND Hospitalist
DX: R07.89 Other chest pain (principal); R55 Syncope and collapse; R61 Generalized hyperhidrosis; R10.13 Epigastric pain; R53.83 Other fatigue; E87.1 Hypo-osmolality and hyponatremia; E78.5 Hyperlipidemia, unspecified; E03.9 Hypothyroidism, unspecified; Z90.49 Acquired absence of other specified parts of digestive tract; M19.90 Unspecified osteoarthritis, unspecified site; Z86.73 Personal history of transient ischemic attack (TIA), and cerebral infarction without residual deficits; Z79.82 Long term (current) use of aspirin; Z79.02 Long term (current) use of antithrombotics/antiplatelets; Z79.899 Other long term (current) drug therapy; Z79.890 Hormone replacement therapy; Z91.041 Radiographic dye allergy status; Z80.9 Family history of malignant neoplasm, unspecified; Z82.49 Family history of ischemic heart disease and other diseases of the circulatory system
CPT/HCPCS: 96360; 96361; 99285; 36415; 93005; 93306; 93351; 80061; 80053; 80048; 83690; 83735; 84484; 85025 ×2; 85610; 85730; 81001; 71046; G0378 ×2; U0003

== ENCOUNTER → 2020-06-29 | Outpatient (CLI) | payer MEDICARE, BC ==
--- NOTE | 2020-06-29 14:03 | US ---
EXAMINATION TYPE: US carotid duplex BILAT DATE OF EXAM: 06/29/2020 COMPARISON: CT neck November 10, 2017 CLINICAL HISTORY: I65.29 OCCLUSION AND STENOSIS OF CAROTID ARTERY. Stenosis EXAM MEASUREMENTS: RIGHT: Peak Systolic Velocity (PSV) cm/sec ----- Right CCA: 104.0 ----- Right ICA: 99.6 ----- Right ECA: 118.5 ICA/CCA ratio: 1.0 RIGHT: End Diastole cm/sec ----- Right CCA: 22.6 ----- Right ICA: 32.5 ----- Right ECA: 11.1 LEFT: Peak Systolic Velocity (PSV) cm/sec ----- Left CCA: 98.1 ----- Left ICA: 78.2 ----- Left ECA: 90.8 ICA/CCA ratio: 0.8 LEFT: End Diastole cm/sec ----- Left CCA: 22.5 ----- Left ICA: 25.0 ----- Left ECA: 14.9 VERTEBRALS (direction of flow): Right Vertebral: Appeared occluded Left Vertebral: Antegrade Rhythm: Normal No significant plaque or stenosis in proximal internal carotid arteries were carotid bulbs bilaterall y. Portion of left vertebral artery is shadowed out, focal significant stenosis or occlusion not excl uded though felt unlikely. IMPRESSION: No hemodynamically significant stenosis in either internal carotid artery. Criteria for Assigning % of Stenosis / Diameter reduction (Estimation based on the indirect measurements of the internal carotid artery velocities (ICA PSV). 1. Normal (no stenosis)=ICA PSV < 125 cm/s: ratio < 2.0: ICA EDV<40 cm/s. 2. Less than 50% stenosis=ICA PSV < 125 cm/s: ratio < 2.0: ICA EDV<40 cm/s. 3. 50 to 69% stenosis=ICA PSV of 125 to 230 cm/s: ration 2.0 ? 4.0: ICA EDV 40-100 cm/s. 4. Greater than 70% stenosis to near occlusion= ICA PSV > 230 cm/s: ratio > 4.0: ICA EDV > 100 cm/s. 5. Near occlusion= ICA PSV velocities may be low or undetectable: variable ratio and ICA EDV. 6. Total occlusion=unable to detect flow.
== END ==
LOC: RADUSWWP 12:41
PROVIDERS: ATTEND Family Medicine
DX: I65.29 Occlusion and stenosis of unspecified carotid artery (principal)
CPT/HCPCS: 93880

== ENCOUNTER → 2021-04-23 | Outpatient (CLI) | payer MEDICARE, BC ==
[2021-04-23 08:54] LABS: African American GFR (CKD) >90 (>60 ml/min/1.73 sqM); Blood Urea Nitrogen 17 mg/dL (9-20); Non-African American GFR(CKD) 81 (>60 ml/min/1.73 sqM)
--- NOTE | 2021-04-23 11:20 | CT ---
EXAMINATION TYPE: CT abdomen w con DATE OF EXAM: 04/23/2021 COMPARISON: None HISTORY: Left mid abdominal pain CT DLP: 608.1 mGycm CONTRAST: CT scan of the abdomen is performed with Oral Contrast and with IV Contrast, patient injected with 10 0 mL of Isovue 300. FINDINGS: LUNG BASES-: No visible nodule. No infiltrate. LIVER/GB: The gallbladder is surgically absent. No space occupying hepatic lesion. Biliary tree is of normal caliber. PANCREAS: No inflammation. No distinct mass. SPLEEN: No splenic enlargement. No lesion seen. ADRENALS: No nodule. No thickening. KIDNEYS/BLADDER: No hydronephrosis. No nephrolithiasis. No distinct renal mass. Urinary bladder g rossly unremarkable. BOWEL: Visualized bowel loops appear to be of normal caliber. No evidence for inflammatory process or free air. Mild fecal stasis identified. LYMPH NODES: No greater than 1cm abdominal or pelvic lymph nodes are appreciated. AORTA: No significant abnormality. OSSEOUS STRUCTURES: No significant abnormality is seen. OTHER: No significant additional abnormality is seen. IMPRESSION: 1. No significant abnormality to account for the patient's symptoms.
== END | disposition home or self-care (01) ==
LOC: RADCTMAIN 08:02
PROVIDERS: ATTEND Family Medicine
DX: K59.00 Constipation, unspecified (principal)
CPT/HCPCS: 82565; 84520; 74160; 36415; Q9967

== ENCOUNTER → 2021-08-07 | Outpatient (CLI) | payer MEDICARE, BC ==
--- NOTE | 2021-08-08 17:32 | US ---
EXAMINATION TYPE: US carotid duplex BILAT DATE OF EXAM: 08/07/2021 COMPARISON: NONE CLINICAL HISTORY: I67.89 H53.9 Z86.73. cerebrovascular disease EXAM MEASUREMENTS: RIGHT: Peak Systolic Velocity (PSV) cm/sec ----- Right CCA: 113 ----- Right ICA: 130 ----- Right ECA: 171 ICA/CCA ratio: 1.2 RIGHT: End Diastole cm/sec ----- Right CCA: 29.2 ----- Right ICA: 30.6 ----- Right ECA: 30.3 LEFT: Peak Systolic Velocity (PSV) cm/sec ----- Left CCA: 138 ----- Left ICA: 117 ----- Left ECA: 125 ICA/CCA ratio: .8 LEFT: End Diastole cm/sec ----- Left CCA: 31.5 ----- Left ICA: 24 ----- Left ECA: 22.5 VERTEBRALS (direction of flow): Right Vertebral: Antegrade Left Vertebral: Antegrade Rhythm: Normal Intimal thickening is present on the right. IMPRESSION: 1. Atheromatous plaquing with moderate narrowing of the right internal carotid artery, between 50 and 69% based on velocity. Criteria for Assigning % of Stenosis / Diameter reduction (Estimation based on the indirect measurements of the internal carotid artery velocities (ICA PSV). 1. Normal (no stenosis)=ICA PSV < 125 cm/s: ratio < 2.0: ICA EDV<40 cm/s. 2. Less than 50% stenosis=ICA PSV < 125 cm/s: ratio < 2.0: ICA EDV<40 cm/s. 3. 50 to 69% stenosis=ICA PSV of 125 to 230 cm/s: ratio 2.0 ? 4.0: ICA EDV 40-100 cm/s. 4. Greater than 70% stenosis to near occlusion= ICA PSV > 230 cm/s: ratio > 4.0: ICA EDV > 100 cm/s. 5. Near occlusion= ICA PSV velocities may be low or undetectable: variable ratio and ICA EDV. 6. Total occlusion=unable to detect flow.
== END | disposition home or self-care (01) ==
LOC: RADUSWWP 16:13
PROVIDERS: ATTEND Family Medicine
DX: I67.89 Other cerebrovascular disease (principal); H53.9 Unspecified visual disturbance; Z86.73 Personal history of transient ischemic attack (TIA), and cerebral infarction without residual deficits
CPT/HCPCS: 93880

== ENCOUNTER 2021-09-06 12:48 | Inpatient (IN) | payer MEDICARE, BC ==
[2021-09-06 15:24] LABS: Prothrombin Time 10.7 sec (9.0-12.0)
[2021-09-06 15:30] LABS: ALT 43 U/L (4-49); AST 44 U/L (17-59); African American GFR (CKD) >90 (>60 ml/min/1.73 sqM); Albumin 4.5 g/dL (3.5-5.0); Alkaline Phosphatase 85 U/L (38-126); Anion Gap 6 mmol/L; Blood Urea Nitrogen 18 mg/dL (9-20); Calcium 9.3 mg/dL (8.4-10.2); Carbon Dioxide 26 mmol/L (22-30); Chloride 107 mmol/L (98-107); Glucose 93 mg/dL (74-99); Non-African American GFR(CKD) 90 (>60 ml/min/1.73 sqM); Sodium 139 mmol/L (137-145); Total Bilirubin 0.6 mg/dL (0.2-1.3); Total Protein 6.9 g/dL (6.3-8.2)
[2021-09-06 16:01] LABS: Basophils % (A) 1 %; Eosinophils # (A) 0.1 k/uL (0-0.7); Eosinophils % (A) 2 %; HCT 42.2 % (39.0-53.0); HGB 14.1 gm/dL (13.0-17.5); Lymphocytes # (A) 1.1 k/uL (1.0-4.8); Lymphocytes % (A) 13 %; MCH 30.7 pg (25.0-35.0); MCHC 33.5 g/dL (31.0-37.0); MCV 91.7 fL (80.0-100.0); Mean Platelet Volume 6.8; Monocytes # (A) 0.4 k/uL (0-1.0); Monocytes % (A) 5 %; Neutrophils # (A) 6.7 k/uL (1.3-7.7); Neutrophils % (A) 79 %; Platelet Count 268 k/uL (150-450); WBC 8.4 k/uL (3.8-10.6)
[2021-09-06] MEDS ORDERED: SODIUM CHLORIDE 0.9% 500 ML 500 ML IV ONE (19:30)
--- NOTE | 2021-09-06 19:35 | ED ---
General Adult HPI - General Chief complaint: Dizziness Stated complaint: Light Headed Time Seen by Provider: 09/06/21 19:18 Source: patient, RN notes reviewed, old records reviewed Mode of arrival: ambulatory - History of Present Illness Initial comments: 65-year-old male presenting for evaluation of lightheadedness, Patient states he felt like he may pass out. There was no associated headache. No focal numbness or weakness. He's been dealing with a vision abnormality of following both with his primary care physician and ophthalmology over the past one month. He's had outpatient ultrasound and brain MRI. He does have a previous history of TIA. He is not currently on any anticoagulation he takes 81 mg aspirin He has a history of hypercholesterolemia. Patient denies chest pain. No abdominal pain. No fever or vomiting. He is scheduled for outpatient CT angiography of the head and neck in 6 days. - Related Data Home Medications Medication Instructions Recorded Confirmed Aspirin 81 mg PO DAILY 11/28/16 09/06/21 Atorvastatin [Lipitor] 40 mg PO HS 09/07/18 09/06/21 Levothyroxine Sodium [Synthroid] 175 mcg PO DAILY 09/06/21 09/06/21 Allergies Allergy/AdvReac Type Severity Reaction Status Date / Time No Known Allergies Allergy Verified 09/06/21 19:55 Review of Systems ROS Statement: Those systems with pertinent positive or pertinent negative responses have been documented in the HPI. ROS Other: All systems not noted in ROS Statement are negative. 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 History of Any Multi-Drug Resistant Organisms: None Reported Past Surgical History: Cholecystectomy, Heart Catheterization, Orthopedic Surgery Additional Past Surgical History / Comment(s): lt foot Past Anesthesia/Blood Transfusion Reactions: No Reported Reaction Past Psychological History: No Psychological Hx Reported Smoking Status: Never smoker Past Alcohol Use History: None Reported, Rare Past Drug Use History: None Reported - Past Family History Mother Family Medical History: Cancer Sister(s) Family Medical History: Cancer Daughter(s) Family Medical History: Deep Vein Thrombosis (DVT) Father Family Medical History: Myocardial Infarction ([place]) Additional Family Medical History / Comment(s): Father of a massive [place] at t he age of 57 yrs. General Exam General appearance: alert, in no apparent distress Head exam: Present: atraumatic, normocephalic Eye exam: Present: normal appearance, PERRL ENT exam: Present: normal exam Neck exam: Present: normal inspection. Absent: tenderness, meningismus Respiratory exam: Present: normal lung sounds bilaterally. Absent: respiratory distress, wheezes Cardiovascular Exam: Present: regular rate, normal rhythm GI/Abdominal exam: Present: soft. Absent: distended, tenderness, guarding, rebound Extremities exam: Present: normal inspection, normal capillary refill. Absent: pedal edema, calf tenderness Neurological exam: Present: alert, oriented X3, CN II-XII intact, other (NIH is 0, normal finger to nose bilaterally, no ataxia). Absent: motor sensory deficit Psychiatric exam: Present: normal affect, normal mood Skin exam: Present: warm, dry, intact. Absent: cyanosis, diaphoretic Course Vital Signs 09/06/21 09/06/21 09/06/21 14:39 20:00 20:30 Temperature 98.3 F Pulse Rate 93 81 73 Respiratory 16 12 12 Rate Blood Pressure 136/80 142/85 141/96 O2 Sat by Pulse 97 96 96 Oximetry 09/06/21 21:00 Temperature Pulse Rate 72 Respiratory 12 Rate Blood Pressure 123/85 O2 Sat by Pulse 96 Oximetry EKG Findings - EKG Comments: EKG Findings:: EKG: Sinus rhythm incomplete right bundle-branch block ventr icular rate of 88, DC interval 139, QRS duration 94, QTC 413, no ST segment elevation. Medical Decision Making - Medical Decision Making 65-year-old male presents for evaluation of lightheadedness, and visual disturbances which has been occurring over the past one month. He had an outpatient ultrasound which showed carotid artery disease. He has a previous history of TIA. He is on 81 mg aspirin and cholesterol medication. He denies focal numbness or weakness. He has an NIH of 0. He has no ataxia. He was scheduled for outpatient CT angiography. This was performed in the emergency department and shows a occlusion of the right vertebral artery. This is likely due to cause of his symptoms. I did discuss the case with Dr. Manuel craft for neurology. Patient will be admitted to internal medicine. He is given aspirin and Plavix in the emergency department. - Lab Data Result diagrams: 09/06/21 14:52 05/12/22 14:52 Lab Results 09/06/21 09/06/21 09/06/21 Range/Units 14:52 14:52 14:52 WBC 8.4 (3.8-10.6) k/uL RBC 4.60 (4.30-5.90) m/uL Hgb 14.1 (13.0-17.5) gm/dL Hct 42.2 (39.0-53.0) % MCV 91.7 (80.0-100.0) fL MCH 30.7 (25.0-35.0) pg MCHC 33.5 (31.0-37.0) g/dL RDW 13.0 (11.5-15.5) % Plt Count 268 (150-450) k/uL MPV 6.8 Neutrophils % 79 % Lymphocytes % 13 % Monocytes % 5 % Eosinophils % 2 % Basophils % 1 % Neutrophils # 6.7 (1.3-7.7) k/uL Lymphocytes # 1.1 (1.0-4.8) k/uL Monocytes # 0.4 (0-1.0) k/uL Eosinophils # 0.1 (0-0.7) k/uL Basophils # 0.0 (0-0.2) k/uL PT 10.7 (9.0-12.0) sec INR 1.0 (<1.2) Sodium 139 (137-145) mmol/L Potassium 4.0 (3.5-5.1) mmol/L Chloride 107 (98-107) mmol/L Carbon Dioxide 26 (22-30) mmol/L Anion Gap 6 mmol/L BUN 18 (9-20) mg/dL Creatinine 0.87 (0.66-1.25) mg/dL Est GFR (CKD-EPI)AfAm >90 (>60 ml/min/1.73 sqM) Est GFR (CKD-EPI)NonAf 90 (>60 ml/min/1.73 sqM) Glucose 93 (74-99) mg/dL Calcium 9.3 (8.4-10.2) mg/dL Total Bilirubin 0.6 (0.2-1.3) mg/dL AST 44 (17-59) U/L ALT 43 (4-49) U/L Alkaline Phosphatase 85 (38-126) U/L Troponin I (0.000-0.034) ng/mL Total Protein 6.9 (6.3-8.2) g/dL Albumin 4.5 (3.5-5.0) g/dL 09/06/21 Range/Units 14:52 WBC (3.8-10.6) k/uL RBC (4.30-5.90) m/uL Hgb (13.0-17.5) gm/dL Hct (39.0-53.0) % MCV (80.0-100.0) fL MCH (25.0-35.0) pg MCHC (31.0-37.0) g/dL RDW (11.5-15.5) % Plt Count (150-450) k/uL MPV Neutrophils % % Lymphocytes % % Monocytes % % Eosinophils % % Basophils % % Neutrophils # (1.3-7.7) k/uL Lymphocytes # (1.0-4.8) k/uL Monocytes # (0-1.0) k/uL Eosinophils # (0-0.7) k/uL Basophils # (0-0.2) k/uL PT (9.0-12.0) sec INR (<1.2) Sodium (137-145) mmol/L Potassium (3.5-5.1) mmol/L Chloride (98-107) mmol/L Carbon Dioxide (22-30) mmol/L Anion Gap mmol/L BUN (9-20) mg/dL Creatinine (0.66-1.25) mg/dL Est GFR (CKD-EPI)AfAm (>60 ml/min/1.73 sqM) Est GFR (CKD-EPI)NonAf (>60 ml/min/1.73 sqM) Glucose (74-99) mg/dL Calcium (8.4-10.2) mg/dL Total Bilirubin (0.2-1.3) mg/dL AST (17-59) U/L ALT (4-49) U/L Alkaline Phosphatase (38-126) U/L Troponin I <0.012 (0.000-0.034) ng/mL Total Protein (6.3-8.2) g/dL Albumin (3.5-5.0) g/dL Disposition 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
--- NOTE | 2021-09-06 20:48 | CT ---
EXAMINATION TYPE: CT angio head neck CT DLP: 702.9 mGycm, Automated exposure control for dose reduction was used. DATE OF EXAM: 09/06/2021 8:32 PM COMPARISON: CT angiogram neck 11/10/2017. MRI brain 08/11/2021. CLINICAL INDICATION:Male, 65 years old with history of Dizzy, vision changes, dizziness. and known ca rotid blockage TECHNIQUE: Axially acquired helical CT angiogram of the head and neck was obtained with contrast util izing 75 cc of Isovue-370 administered intravenously. Axial images are supplemented with 3D reconstru ctions which were post-processed at an independent workstation. NASCET criteria used. FINDINGS: CTA HEAD: No evidence of acute intracranial hemorrhage, mass effect, or midline shift. The ventricles, sulci, a nd cisterns are unremarkable. The visualized portions of the internal carotid arteries, middle cerebral arteries, anterior cerebral arteries, and posterior cerebral arteries are patent. The basilar and left vertebral artery are patent. The right vertebral artery is not visualized extend ing from its origin to the intracranial portion. CTA NECK: Right Carotid System: The common carotid artery and external carotid artery are patent. The carotid bifurcation demonstrate s no evidence of hemodynamically significant stenosis. The remaining portions of the internal carotid artery demonstrate normal size without significant narrowing. Left Carotid System: The common carotid artery and external carotid artery are patent. The carotid bifurcation demonstrate s no evidence of hemodynamically significant stenosis. The remaining portions of the internal carotid artery demonstrate normal size without significant narrowing. Left vertebral artery is patent. Nonvisualization of the right vertebral artery extending from its or igin to the intracranial portion. There is a three-vessel aortic arch. The origins of the great vessels are patent. No evidence of hemo dynamically significant stenosis. IMPRESSION: 1. Occlusion of the right vertebral artery extending from its origin to the intracranial portion. The re is backfilling of the intracranial portion near the origin of the basilar artery. Intracranial fin dings partially visualized on the MRI brain 08/11/2021. 2. No evidence of dissection of the cervical internal carotid arteries or evidence of significant luke nosis at the carotid bifurcations. 3. No evidence of high-grade stenosis or intracranial aneurysm.
[2021-09-06] MEDS ORDERED: ASPIRIN 325 MG TAB PO STA (21:04)
[2021-09-06] MEDS ORDERED: ACETAMINOPHEN TAB 325 MG TAB PO PRN (21:29)
[2021-09-07 05:33] LABS: Chol/HDL Ratio 3.79 Ratio; LDL Cholesterol,Calculated 69.7 mg/dL (0.0-131.0)
[2021-09-07] MEDS ORDERED: FAMOTIDINE 20 MG/2 ML VIAL IV SCH (09:00)
[2021-09-07] MEDS ORDERED: ASPIRIN 325 MG TAB PO SCH (09:00)
--- NOTE | 2021-09-07 09:59 | P.HPIM ---
History of Present Illness This is a pleasant 65 years old male with past medical history of CVA/TIA, Hyperlipidemia, hypothyroidism Patient complaining of from dizziness and flutter and chest and across her start Patient presents because of dizziness. Patient states that he had some blurriness in his right eye about 2-3 months ago, his primary doctor referred him to search engine optimizer who suggested computed tomography scan and ultrasound showing a blockage in his right side of the neck arteries, he is supposed to get a computed tomography scan with contrast next week for this reason however yesterday he felt foggy in his brain he does not describe it as dizziness but he felt about to pass out. Patient did not lose consciousness. Also denied chest pain or dyspnea. No palpitations. No diarrhea or vomiting or dysuria. No headache or weakness or numbness, no blurred vision or slurred speech currently. He denies smoking, alcohol or illicit drugs. Vitals are stable, afebrile Labs reviewed showed an unremarkable CBC, BMP, liver enzymes. EKG normal sinus rhythm at 88 BPM with no significant ST-T changes CTA of the head and neck: Occlusion of the right vertebral artery extending from its origin to the intracranial portion. There is back filling of the intracranial portion near the origin of the basilar artery. Intracranial findings partially visualized on the MRI brain 08/11/21. No evidence of dissection of the cervical internal carotid arteries or evidence of significant stenosis at the carotid bifurcations. No evidence of high-grade stenosis or intracranial aneurysm In the emergency room patient received aspirin 325 mg and normal saline 75 mL/h, within urology consult Review of Systems CONSTITUTIONAL: No fever, no malaise, no fatigue. HEENT: No recent visual problems or hearing problems. Denied any sore throat. CARDIOVASCULAR: No orthopnea, PND, no palpitations, no syncope. PULMONARY: No shortness of breath, no cough, no hemoptysis. GASTROINTESTINAL: No diarrhea, no nausea, no vomiting, no abdominal pain. Normoactive bowel sounds. NEUROLOGICAL: No headaches, no weakness, no numbness. HEMATOLOGICAL: Denies any bleeding or petechiae. GENITOURINARY: Denies any burning micturition, frequency, or urgency. MUSCULOSKELETAL/RHEUMATOLOGICAL: Denies any joint pain, swelling, or any muscle pain. ENDOCRINE: Denies any polyuria or polydipsia. 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 History of Any Multi-Drug Resistant Organisms: None Reported Past Surgical History: Cholecystectomy, Heart Catheterization, Orthopedic Surg maxim Additional Past Surgical History / Comment(s): lt foot Past Anesthesia/Blood Transfusion Reactions: No Reported Reaction Past Psychological History: No Psychological Hx Reported Smoking Status: Never smoker Past Alcohol Use History: None Reported, Rare Past Drug Use History: None Reported - Past Family History Mother Family Medical History: Cancer Sister(s) Family Medical History: Cancer Daughter(s) Family Medical History: Deep Vein Thrombosis (DVT) Father Family Medical History: Myocardial Infarction ([place]) Additional Family Medical History / Comment(s): Father of a massive [place] at the age of 57 yrs. Medications and Allergies Home Medications Medication Instructions Recorded Confirmed Type Aspirin 81 mg PO DAILY 11/28/16 09/06/21 History Atorvastatin [Lipitor] 40 mg PO HS 09/07/18 09/06/21 History Levothyroxine Sodium [Synthroid] 175 mcg PO DAILY 09/06/21 09/06/21 History Allergies Allergy/AdvReac Type Severity Reaction Status Date / Time No Known Allergies Allergy Verified 09/06/21 19:55 Physical Exam Vitals: Vital Signs Temp Pulse Resp BP Pulse Ox 09/07/21 07:36 71 18 147/82 97 09/06/21 21:00 72 12 123/85 96 09/06/21 20:30 73 12 141/96 96 09/06/21 20:00 81 12 142/85 96 09/06/21 14:39 98.3 F 93 16 136/80 97 GENERAL: The patient is alert and oriented x3, not in any acute distress. Well developed, well nourished. HEENT: Pupils are round and equally reacting to light. EOMI. No scleral icterus. No conjunctival pallor. Normocephalic, atraumatic. No pharyngeal erythema. No thyromegaly. CARDIOVASCULAR: S1 and S2 present. No murmurs, rubs, or gallops. PULMONARY: Chest is clear to auscultation, no wheezing or crackles. ABDOMEN: Soft, nontender, nondistended, normoactive bowel sounds. No palpable organomegaly. MUSCULOSKELETAL: No joint swelling or deformity. EXTREMITIES: No cyanosis, clubbing, or pedal edema. NEUROLOGICAL: Gross neurological examination did not reveal any focal deficits. SKIN: No rashes. No petechiae Results CBC & Chem 7: 09/06/21 14:52 09/06/21 14:52 Labs: Abnormal Lab Results - Last 24 Hours (Table) 09/06/21 Range/Units 14:52 Triglycerides 163.00 H (0.00-149.00) mg/dL HDL Cholesterol 36.70 L (40.00-60.00) mg/dL Assessment and Plan Assessment: Presyncope right vertebral artery occlusion Hypothyroidism Hyperlipidemia History of CVA Plan: This is a pleasant 65 years old male who presents with dizziness and right vertebral artery occlusion Continue with aspirin at 325 mg dose Neurology consult Follow-up MRI of the brain Vascular surgical consult Check echocardiogram, repeat troponin and cardiology consult Labs and medication were reviewed.. Continue same treatment. Continue with symptomatic treatment. Resume home medication. Monitor lytes and vitals. DVT and GI prophylaxis. Further recommendations depends on the clinical course of the patient DVT prophylaxis: Subcutaneous heparin GI Prophylaxis: Pepcid
[2021-09-07] MEDS: SODIUM CHLORIDE 0.9% 1,000 ML IV SCH (10:00)
[2021-09-07] MEDS: CLOPIDOGREL 75 MG TAB PO SCH ×2 (10:01→10:03)
[2021-09-07] MEDS: LEVOTHYROXINE 88 MCG TAB PO SCH (10:02)
[2021-09-07] MEDS: HEPARIN SODIUM,PORCINE/PF 5,000 UNIT/0.5 ML SYRINGE SQ SCH ×2 (10:02→20:17)
[2021-09-07 11:42] LABS: African American GFR (CKD) >90 (>60 ml/min/1.73 sqM); Anion Gap 6 mmol/L; Blood Urea Nitrogen 17 mg/dL (9-20); Calcium 9.1 mg/dL (8.4-10.2); Carbon Dioxide 25 mmol/L (22-30); Chloride 108 mmol/L (98-107); Glucose 106 mg/dL (74-99); Magnesium 2.1 mg/dL (1.6-2.3); Non-African American GFR(CKD) >90 (>60 ml/min/1.73 sqM); Potassium 4.1 mmol/L (3.5-5.1); Sodium 139 mmol/L (137-145)
--- NOTE | 2021-09-07 12:28 | P.CNNES ---
History of Present Illness Consult date: 09/07/21 Requesting physician: Yovany Schneider Reason for Consult: vertebral basilar artery insufficiency History of Present Illness: This is a 65-year-old gentleman with medical history of with history of TIA, hypothyroidism, hyperlipidemia who presented emergency department on 09/06/2021 or feeling of lightheadedness. Patient stated that the he felt lightheaded and felt like he was about to pass out. Patient is accompanied with his was at bedside. Yesterday between 11 AM to 12 in the afternoon patient was the store and that he felt lightheaded and he felt like he is about to pass out and the episode lasted for 2-10 minutes. He denies a losing consciousness, urinary bowel incontinence, tongue bite, any jerk in of any extremity and the did not notice any of those as well as no fixed eye deviation. Patient denies any focal weakness, numbness, difficulty getting his words out, swallowing. Patient stated that he's been having this the lightheaded sensation for the past couple months but worse in the last 1 week. Also he had 2 episodes where he had lightning episode over the right eye in June which lasted 7-8 minutes. He describes a further as zigzag but he denies any headache or any focal weakness associate with that. Denies any history of migraine. Because of those 2 episodes of the vision he was a valid but fountain jerk as an outpatient and was notified it could be complicated migraine. He had some work-up by his PCP as outpatient Patient had MRI of the brain w/ and w/oon 08/11/2021 for visual disturbance any history of TIA and was reported as age-related atrophy and chronic small vessel ischemic changes. No acute intracranial process seen at that time. No enhancing lesions are seen. He also had carotid duplex on 08/07/2021 ordered by his primary and she reported as after Wily plaquing with moderate narrowing of the right internal carotid artery between 50-69on velocity. Patient stated that it he was supposed to get a CT angiography down the line this month. Patient is on aspirin 81 mg daily and denies being on anticoagulation. Patient is also on Lipitor 40 mg daily at bedtime He denies of any tobacco use or any illicit drug use. He socially drinks alcohol. Currently he feels he is back to baseline. He denies any history of seizures. Regarding his previous TIA he said that in the past was feeling lightheaded and also had a sensation of the close of passing out. Some other workup in the hospital consisted of CT angiography of the head and neck was reported as occlusion of the right vertebral artery extending from its origin to the intracranial portion. There is a back filling of the intracranial portion near its origin of the basal artery. Intracranial filling partially visualized on the MRI the brain on 08/11/2021. No evidence of dissection of the cervical internal carotid artery or evidence of significant stenosis at that carotid bifurcation. No evidence of high-grade stenosis or intracranial aneurysm. Lipid panel is triglyceride 163, cholesterol 139, LDL is 69 and HDL 36. CBC and chemistry panel is within normal limits Review of Systems Review of system: The 12 point system was reviewed and apparent positive and negative per HPI. 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 History of Any Multi-Drug Resistant Organisms: None Reported Past Surgical History: Cholecystectomy, Heart Catheterization, Orthopedic Surgery Additional Past Surgical History / Comment(s): lt foot Past Anesthesia/Blood Transfusion Reactions: No Reported Reaction Past Psychological History: No Psychological Hx Reported Smoking Status: Never smoker Past Alcohol Use History: None Reported, Rare Past Drug Use History: None Reported - Past Family History Mother Family Medical History: Cancer Sister(s) Family Medical History: Cancer Daughter(s) Family Medical History: Deep Vein Thrombosis (DVT) Father Family Medical History: Myocardial Infarction ([place]) Additional Family Medical History / Comment(s): Father of a massive [place] at the age of 57 yrs. Medications and Allergies Home Medications Medication Instructions Recorded Confirmed Type Aspirin 81 mg PO DAILY 11/28/16 09/06/21 History Atorvastatin [Lipitor] 40 mg PO HS 09/07/18 09/06/21 History Levothyroxine Sodium [Synthroid] 175 mcg PO DAILY 09/06/21 09/06/21 History Allergies Allergy/AdvReac Type Severity Reaction Status Date / Time No Known Allergies Allergy Verified 09/06/21 19:55 Physical Examination - Vital Signs Vital Signs: Vital Signs Temp Pulse Resp BP Pulse Ox 09/07/21 07:36 71 18 147/82 97 09/06/21 21:00 72 12 123/85 96 09/06/21 20:30 73 12 141/96 96 09/06/21 20:00 81 12 142/85 96 09/06/21 14:39 98.3 F 93 16 136/80 97 GENERAL: The patient is lying in bed and is not in acute distress. CHEST: The heart rate is regular rate rhythm. No murmurs to auscultation. LUNG: Clear to auscultation bilaterally no wheezing noted throughout. Not labored breathing. ABDOMEN/GI: Bowel sounds present in all 4 quadrants. No tenderness to palpation throughout. NEUROLOGICAL: Higher mental function: The patient is awake, alert, oriented to self, place and time. Patient is following commands. No aphasia and no neglect. Cranial nerves: The pupils are round, equal and reactive to light and accommodation. Visual dudley are full to confrontation throughout. Extraocular movement is intact no nystagmus is noted. Facial sensation is normal to touch throughout. The facial strength is normal throughout. Hearing is normal alisa aterally to hand rub. Tongue is midline and moved [id number] without any difficulty. No dysarthria is noted. Shoulder shrug is normal bilaterally. Motor: Gait is normal. The strength is 5 over 5 throughout. Normal tone and bulk. Cerebellum: Normal finger to nose heel to lowery bilaterally. Sensation: Sensation is normal to touch throughout. Reflexes (right/left): 2+ throughout. Plantars are downgoing bilaterally. 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 2 episodes in June 2019) Hypothyroidism Hyperlipidemia Plan: Patient home aspirin was increased to 325 by the ED which I agree with that and patient was started on Plavix 75 mg daily ED. Continue dual antiplatelets. Continue Lipitor 40 mg daily at bedtime I ordered MRI of the brain but was notified it will not be done until Friday. Patient had a prior MRI Brain w/ and w/o on 08/11/2021 as outpatient and re ported as normal. Recommend routine EEG. 2-D echo, TSH, hemoglobin A1c is ordered and is pending PT OT and TEMPERING KILN TENDER are consulted Continue neuro checks On cardiac monitoring Primary team consulted vascular surgery team We'll defer the rest of the medical management to the primary team Upon discharge recommend the patient follow up with a neurologist as an outpatient as well as intervention neurology team. Since the patient is stable currently, I recommend repeat MRI Brain w/ and w/o to be done as outpatient as well as recommend routine EEG. The EEG will be coordinated by archives technician. The plan is discussed with patient, his who is at bedside and primary team. Thank you for the consultation. Dr. Oseguera is covering neurology service tomorrow AM then Dr. Carty starts Friday AM. Christiano Jackson M.D. Neuro-hospitalist Time with Patient: Greater than 30
--- NOTE | 2021-09-07 12:31 | P.GSCN ---
History of Present Illness Consult date: 09/07/21 Reason for Consult: Vetebral occlusion Requesting physician: Sergei E Sheet History of present illness: This is a pleasant 65-year-old male who presented to the emergency department with complaints of dizziness and lightheaded yesterday evening. He has a past medical history including hypothyroid, TIA, and hyperlipidemia. States he felt like he was going to pass out. He had no other associated focal deficits. He denied any extremity weakness, difficulty speaking, headache, any numbness. He does state that he has been having some vision abnormalities and has been following with his primary care physician and regulatory associate or the past 1 month duration. As part of his outpatient workup he had a carotid duplex done reporting atheromatous plaquing with moderate narrowing of right internal artery between 50-69% based on velocity. Brain MRI done on 08/11/2021 reported age- related atrophic and chronic small vessel ischemic change. No acute intracranial process at this time no enhancing lesions seen. As part of his workup in the emergency room he had a CT angiogram of the head and neck that showed an occluded right vertebral artery therefore vascular surgery was consulted. Patient states he is on a 81 mg aspirin daily, atorvastatin 40 mg daily as well as Synthroid. CT angiogram head and neck reported occlusion of the right vertebral artery extending from its origin to the intracranial portion. There is backfilling in the intracranial portion near the origin of basilar artery. Intracranial findings partially visualized on MRI no dissection of the cervical internal carotid arteries or evidence of significant stenosis at the carotid bifurcations. No evidence of high-grade stenosis or intracranial aneurysm. 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 History of Any Multi-Drug Resistant Organisms: None Reported Past Surgical History: Cholecystectomy, Heart Catheterization, Orthopedic Surgery Additional Past Surgical History / Comment(s): lt foot Past Anesthesia/Blood Transfusion Reactions: No Reported Reaction Past Psychological History: No Psychological Hx Reported Smoking Status: Never smoker Past Alcohol Use History: None Reported, Rare Past Drug Use History: None Reported - Past Family History Mother Family Medical History: Cancer Sister(s) Family Medical History: Cancer Daughter(s) Family Medical History: Deep Vein Thrombosis (DVT) Father Family Medical History: Myocardial Infarction ([place]) Additional Family Medical History / Comment(s): Father of a massive [place] at the age of 57 yrs. Medications and Allergies Home Medications Medication Instructions Recorded Confirmed Type Aspirin 81 mg PO DAILY 11/28/16 09/06/21 History Atorvastatin [Lipitor] 40 mg PO HS 09/07/18 09/06/21 History Levothyroxine Sodium [Synthroid] 175 mcg PO DAILY 09/06/21 09/06/21 History Allergies Allergy/AdvReac Type Severity Reaction Status Date / Time No Known Allergies Allergy Verified 09/06/21 19:55 Surgical - Exam Vital Signs Temp Pulse Resp BP Pulse Ox 98.3 F 93 16 136/80 97 09/06/21 14:39 09/06/21 14:39 09/06/21 14:39 09/06/21 14:39 09/06/21 14:39 General appearance: The patient is alert, oriented, appears in no acute distress. HET: Head is normocephalic and atraumatic. Pupils are equal and reactive. Neck: Supple without lymphadenopathy. Trachea midline. No audible carotid bruit. Heart: S1 S2. Regular rate and rhythm. Lungs: Clear to auscultation bilaterally. Abdomen: Soft, nontender, nondistended. Extremities: Normal skin color and turgor. No cyanosis, rash, ulceration, clubbing, or edema. Bilateral +2 radial pulses. Neurological: No focal deficits. Strength and sensation are grossly intact. Results - Labs 09/06/21 14:52 09/07/21 11:05 Abnormal Lab Results - Last 24 Hours (Table) 09/06/21 Range/Units 14:52 Triglycerides 163.00 H (0.00-149.00) mg/dL HDL Cholesterol 36.70 L (40.00-60.00) mg/dL Diabetes panel 09/06/21 09/06/21 Range/Units 14:52 14:52 Sodium 139 (137-145) mmol/L Potassium 4.0 (3.5-5.1) mmol/L Chloride 107 (98-107) mmol/L Carbon Dioxide 26 (22-30) mmol/L BUN 18 (9-20) mg/dL Creatinine 0.87 (0.66-1.25) mg/dL Glucose 93 (74-99) mg/dL Calcium 9.3 (8.4-10.2) mg/dL AST 44 (17-59) U/L ALT 43 (4-49) U/L Alkaline Phosphatase 85 (38-126) U/L Total Protein 6.9 (6.3-8.2) g/dL Albumin 4.5 (3.5-5.0) g/dL Triglycerides 163.00 H (0.00-149.00) mg/dL HDL Cholesterol 36.70 L (40.00-60.00) mg/dL Calcium panel 09/06/21 Range/Units 14:52 Calcium 9.3 (8.4-10.2) mg/dL Albumin 4.5 (3.5-5.0) g/dL Pituitary panel 09/06/21 Range/Units 14:52 Sodium 139 (137-145) mmol/L Potassium 4.0 (3.5-5.1) mmol/L Chloride 107 (98-107) mmol/L Carbon Dioxide 26 (22-30) mmol/L BUN 18 (9-20) mg/dL Creatinine 0.87 (0.66-1.25) mg/dL Glucose 93 (74-99) mg/dL Calcium 9.3 (8.4-10.2) mg/dL Adrenal panel 09/06/21 Range/Units 14:52 Sodium 139 (137-145) mmol/L Potassium 4.0 (3.5-5.1) mmol/L Chloride 107 (98-107) mmol/L Carbon Dioxide 26 (22-30) mmol/L BUN 18 (9-20) mg/dL Creatinine 0.87 (0.66-1.25) mg/dL Glucose 93 (74-99) mg/dL Calcium 9.3 (8.4-10.2) mg/dL Total Bilirubin 0.6 (0.2-1.3) mg/dL AST 44 (17-59) U/L ALT 43 (4-49) U/L Alkaline Phosphatase 85 (38-126) U/L Total Protein 6.9 (6.3-8.2) g/dL Albumin 4.5 (3.5-5.0) g/dL - Imaging Comments: CT angiogram head and neck reported occlusion of the right vertebral artery extending from its origin to the intracranial portion. There is backfilling in the intracranial portion near the origin of basilar artery. Intracranial findings partially visualized on MRI no dissection of the cervical internal carotid arteries or evidence of significant stenosis at the carotid bifurca tions. No evidence of high-grade stenosis or intracranial aneurysm. Assessment and Plan Assessment: 1. Syncope 2. Right vertebral artery occlusion 3. Chronic visual changes Plan: CT angiogram head and neck reviewed as well as prior imaging including carotid duplex done 08/07/2021. Left vertebral artery is patent. There is no indication for any vascular surgical intervention. Carotid duplex findings no significant ICA stenosis and is more consistent with less than 50% carotid stenosis. Recommend continuing low-dose aspirin and atorvastatin. Thank you for this consultation, patient is cleared for discharge from vascular surgical standpoint. The impression and plan of care has been dictated as directed. Dr. Galaviz I performed a history and examination of this patient, discussed the same with the dictator. I agree with the dictator's note ,documented as a scribe. Any additional findings or plans will be noted.
--- NOTE | 2021-09-07 13:23 | P.CRDCN ---
History of Present Illness History of present illness: HISTORY OF PRESENTING ILLNESS This is a pleasant 65-year-old male past medical history significant for TIA in 2018, dyslipidemia, hypothyroidism. He follows in the office with Dr. Barrett. We have been asked to see in consultation for presyncope. Patient presents emergency department with symptoms of lightheadedness. Patient states he [place] the mall with [place] walking and had acute onset of lightheadedness, felt almost like he might faint. He states it felt like a "brain fog" and "not himself". He did not lose consciousness. Denies chest pain, palpitations, shortness of breath, weakness, headache, facial droop, speech difficulty. He did not feel like he was going to fall. He states his symptoms were similar to when he had this TIA in 2018 and presented to the emergency department for further evaluation. His symptoms have resolved. He states his symptoms first began in June 2021, he had episodes of "lightening, zig zag" visual changes in his right eye. He was evaluated by an process improvement engineer, he was examined and there was no abnormality. His process improvement engineer thought it might be a migraine. He returned to his process improvement engineer because his symptoms return. He was examined again and in no acute findings. He follows with his primary care provider and an MRI of the br ain, carotid Dopplers and CT angiography was ordered for the patient. He had a planned CT Angio for next week. Outpatient workup: Carotid duplex done reported atheromatous plaquing with moderate narrowing of right internal artery between 50-69% based on velocity. Brain MRI done on 08/11/2021 reported age-related atrophic and chronic small vessel ischemic change. No acute intracranial process at this time no enhancing lesions seen. DIAGNOSTICS EKG reveals sinus rhythm, incomplete right bundle branch block, heart rate 89, no acute ST or T-wave Abnormalities. Telemetry tracings indicate sinus mechanism no arrhythmia noted. CT angiogram head and neck revealed occlusion of the right vertebral artery stenting from its origin to the intracranial portion. There is backflow into the intracranial portion at the origin of the basal artery. No evidence of dissection the cervical internal carotid arteries. No evidence of high-grade stenosis for intracranial aneurysm. Laboratory reviewed, CBC unremarkable, troponin negative 2, TSH within normal limits, sodium 139, potassium 4.1, BUN 17, syncope and 0.8, magnesium 2.1. Echocardiogram 09/2019 revealed EF of 60-65% Stress echo in 09/2019 was negative for ischemia. Current home medications include aspirin 81 mg daily, atorvastatin 40 mg nightly, Synthroid. REVIEW OF SYSTEMS At the time of my exam: CONSTITUTIONAL: Denies fever or chills. CARDIOVASCULAR: Denies chest pain, shortness of breath, orthopnea, PND or palpitations. RESPIRATORY: Denies cough. GASTROINTESTINAL: Denies abdominal pain, diarrhea, constipation, nausea or vomi ting. MUSCULOSKELETAL: Denies myalgias. NEUROLOGIC: Denies numbness, tingling, headacbe or weakness. ENDOCRINE: Denies fatigue, weight change, polydipsia or polyurina. GENITOURINARY: Denies burning, hematuria or urgency with micturation. HEMATOLOGIC: Denies history of anemia or bleeding. PHYSICAL EXAMINATION Blood pressure 120/89, heart 81, afebrile, oxygen saturations 94% on room air CONSTITUTIONAL: No apparent distress. HEENT: Head is normocephalic. Pupils are equal, round. Sclerae anicteric. Mucous membranes of the mouth are moist. No JVD. No carotid bruit. CHEST EXAMINATION: Lungs are clear to auscultation. No chest wall tenderness is noted on palpation or with deep breathing. HEART EXAMINATION: Regular rate and rhythm. S1, S2 heard. No murmurs, gallops or rub. ABDOMEN: Soft, nontender. Positive bowel sounds. EXTREMITIES: 2+ peripheral pulses, no lower extremity edema and no calf tenderness. NEUROLOGIC EXAMINATION: Patient is awake, alert and oriented x3. ASSESSMENT Lightheadedness History of TIA Right vertebral artery occlusion on CTA Right ICA stenosis reported on carotid duplex Hypothyroidisma Dyslipidemia PLAN Increase atorvastatin 80mg nightly Plavix 75mg started Continue aspirin Monitor on telemetry for 24 hours Likely discharge tomorrow Nurse practitioner note has been reviewed by physician. Signing provider agrees with the documented findings, assessment, and plan of care. 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 History of Any Multi-Drug Resistant Organisms: None Reported Past Surgical History: Cholecystectomy, Heart Catheterization, Orthopedic Surgery Additional Past Surgical History / Comment(s): lt foot Past Anesthesia/Blood Transfusion Reactions: No Reported Reaction Past Psychological History: No Psychological Hx Reported Smoking Status: Never smoker Past Alcohol Use History: None Reported, Rare Past Drug Use History: None Reported - Past Family History Mother Family Medical History: Cancer Additional Family Medical History / Comment(s): Breast cancer survivor. She passed from CAD at the age of 86yrs Sister(s) Family Medical History: Cancer Additional Family Medical History / Comment(s): Brain cancer. Daughter(s) Family Medical History: Deep Vein Thrombosis (DVT) Additional Family Medical History / Comment(s): Daughter from lupus nephritis/pancreatic and renal failure Father Family Medical History: Myocardial Infarction ([place]) Additional Family Medical History / Comment(s): Father of a massive [place] at the age of 57 yrs. Medications and Allergies Home Medications Medication Instructions Recorded Confirmed Type Aspirin 81 mg PO DAILY 11/28/16 09/06/21 History Atorvastatin [Lipitor] 40 mg PO HS 09/07/18 09/06/21 History Levothyroxine Sodium [Synthroid] 175 mcg PO DAILY 09/06/21 09/06/21 History Allergies Allergy/AdvReac Type Severity Reaction Status Date / Time No Known Allergies Allergy Verified 09/06/21 19:55 Physical Exam Vitals: Vital Signs Temp Pulse Pulse Resp BP BP Pulse Ox 09/07/21 08:00 98.2 F 81 18 120/89 09/07/21 07:36 71 18 147/82 97 09/06/21 21:00 72 12 123/85 96 09/06/21 20:30 73 12 141/96 96 09/06/21 20:00 81 12 142/85 96 09/06/21 14:39 98.3 F 93 16 136/80 97 Intake and Output 09/06/21 09/07/21 09/07/21 22:59 06:59 14:59 Other: Voiding Method Toilet # Voids 1 Weight 89.811 kg Results 09/06/21 14:52 09/07/21 11:05 Cardiac Enzymes 09/06/21 09/06/21 09/07/21 Range/Units 14:52 14:52 11:05 AST 44 (17-59) U/L Troponin I <0.012 <0.012 (0.000-0.034) ng/mL Coagulation 09/06/21 Range/Units 14:52 PT 10.7 (9.0-12.0) sec Lipids 09/06/21 Range/Units 14:52 Triglycerides 163.00 H (0.00-149.00) mg/dL Cholesterol 139.00 (0.00-200.00) mg/dL HDL Cholesterol 36.70 L (40.00-60.00) mg/dL Cholesterol/HDL Ratio 3.79 Ratio CBC 09/06/21 Range/Units 14:52 WBC 8.4 (3.8-10.6) k/uL RBC 4.60 (4.30-5.90) m/uL Hgb 14.1 (13.0-17.5) gm/dL Hct 42.2 (39.0-53.0) % Plt Count 268 (150-450) k/uL Comprehensive Metabolic Panel 09/06/21 09/07/21 Range/Units 14:52 11:05 Sodium 139 139 (137-145) mmol/L Potassium 4.0 4.1 (3.5-5.1) mmol/L Chloride 107 108 H (98-107) mmol/L Carbon Dioxide 26 25 (22-30) mmol/L BUN 18 17 (9-20) mg/dL Creatinine 0.87 0.82 (0.66-1.25) mg/dL Glucose 93 106 H (74-99) mg/dL Calcium 9.3 9.1 (8.4-10.2) mg/dL AST 44 (17-59) U/L ALT 43 (4-49) U/L Alkaline Phosphatase 85 (38-126) U/L Total Protein 6.9 (6.3-8.2) g/dL Albumin 4.5 (3.5-5.0) g/dL Current Medications Generic Name Dose Route Start Last Admin Trade Name Freq PRN Reason Stop Dose Admin Acetaminophen 650 mg 09/06/21 21:29 Acetaminophen Tab 325 Mg Tab PO Q6HR PRN Pain Aspirin 81 mg 09/08/21 09:00 Aspirin 81 Mg PO DAILY [facility] Atorvastatin Calcium 80 mg 09/07/21 21:00 Atorvastatin 80 Mg Tab PO HS [facility] Clopidogrel Bisulfate 75 mg 09/06/21 21:45 09/07/21 10:03 Clopidogrel 75 Mg Tab PO 75 mg DAILY [facility] Administration Famotidine 20 mg 09/07/21 21:00 Famotidine 20 Mg Tab PO BID [facility] Heparin Sodium (Porcine) 5,000 unit 09/07/21 09:00 09/07/21 10:02 Heparin Sodium,Porcine/Pf 5,000 Unit/0.5 Ml Syringe SQ Not Given Q12HR [facility] Sodium Chloride 1,000 mls @ 20 mls/hr 09/06/21 21:30 09/07/21 10:00 Saline 0.9% IV Not Given .Q24H [facility] Levothyroxine Sodium 176 mcg 09/07/21 09:00 09/07/21 10:02 Levothyroxine 88 Mcg Tab PO Not Given DAILY@0630 [facility] Intake and Output 09/06/21 09/07/21 09/07/21 22:59 06:59 14:59 Other: Voiding Method Toilet # Voids 1 Weight 89.811 kg Patient Weight 09/08/21 06:59 Weight 89.811 kg 09/06/21 14:52 09/07/21 11:05
[2021-09-07] MEDS: FAMOTIDINE 20 MG TAB PO SCH (20:15)
[2021-09-07] MEDS ORDERED: ATORVASTATIN 40 MG TAB PO SCH (21:00)
[2021-09-07] MEDS ORDERED: ATORVASTATIN 80 MG TAB PO SCH (21:00)
[2021-09-08] MEDS: SODIUM CHLORIDE 0.9% 1,000 ML IV SCH (06:00)
[2021-09-08] MEDS: LEVOTHYROXINE 88 MCG TAB PO SCH (06:01)
[2021-09-08 06:04] VITALS: RESP 18
[2021-09-08 08:24] VITALS: TEMP 98
[2021-09-08] MEDS: CLOPIDOGREL 75 MG TAB PO SCH (08:24)
[2021-09-08] MEDS: FAMOTIDINE 20 MG TAB PO SCH (08:24)
[2021-09-08] MEDS: HEPARIN SODIUM,PORCINE/PF 5,000 UNIT/0.5 ML SYRINGE SQ SCH (08:24)
[2021-09-08] MEDS ORDERED: ASPIRIN 81 MG PO SCH (09:00)
--- NOTE | 2021-09-08 11:58 | P.PN ---
Subjective HISTORY OF PRESENTING ILLNESS This is a pleasant 65-year-old male past medical history significant for TIA in 2018, dyslipidemia, hypothyroidism. He follows in the office with Dr. Barrett. We have been asked to see in consultation for presyncope. Patient presents emergency department with symptoms of lightheadedness. Patient [place] with [place] and had acute onset of lightheadedness, felt almost like he might faint. He states it felt like a "brain fog" and "not himself". He did not lose consciousness. Denies chest pain, palpitations, shortness of breath, weakness, headache, facial droop, speech difficulty. He did not feel like he was going to fall. He states his symptoms were similar to when he had this TIA in 2018 and presented to the emergency department for further evaluation. His symptoms have resolved. He states his symptoms first began in June 2021, he had episodes of "lightening, zig zag" visual changes in his right eye. He was evaluated by an logistics planning engineer, he was examined and there was no abnormality. His logistics planning engineer thought it might be a migraine. He returned to his logistics planning engineer because his symptoms return. He was examined again and in no acute findings. He follows with his primary care provider and an MRI of the brain, carotid Dopplers and CT angiography was ordered for the patient. He had a planned CT Angio for next week. Outpatient workup: Carotid duplex done reported atheromatous plaquing with moderate narrowing of right internal artery between 50-69% based on velocity. Brain MRI done on 08/11/2021 reported age-related atrophic and chronic small vessel ischemic change. No acute intracranial process at this time no enhancing lesions seen. DIAGNOSTICS EKG reveals sinus rhythm, incomplete right bundle branch block, heart rate 89, no acute ST or T-wave Abnormalities. Telemetry tracings indicate sinus mechanism no arrhythmia noted. CT angiogram head and neck revealed occlusion of the right vertebral artery stenting from its origin to the intracranial portion. There is backflow into the intracranial portion at the origin of the basal artery. No evidence of dissection the cervical internal carotid arteries. No evidence of high-grade stenosis for intracranial aneurysm. Laboratory reviewed, CBC unremarkable, troponin negative 2, TSH within normal limits, sodium 139, potassium 4.1, BUN 17, syncope and 0.8, magnesium 2.1. Echocardiogram 09/2019 revealed EF of 60-65% Stress echo in 09/2019 was negative for ischemia. Current home medications include aspirin 81 mg daily, atorvastatin 40 mg nightly, Synthroid. 09/08 Patient seen and examined. Patient denies any lightheadedness or dizziness. Anxious to go home. No events on telemetry. PHYSICAL EXAMINATION Vitals reviewed CONSTITUTIONAL: No apparent distress. HEENT: Head is normocephalic. Pupils are equal, round. Sclerae anicteric. Mucous membranes of the mouth are moist. No JVD. No carotid bruit. CHEST EXAMINATION: Lungs are clear to auscultation. No chest wall tenderness is noted on palpation or with deep breathing. HEART EXAMINATION: Regular rate and rhythm. S1, S2 heard. No murmurs, gallops or rub. ABDOMEN: Soft, nontender. Positive bowel sounds. EXTREMITIES: 2+ peripheral pulses, no lower extremity edema and no calf tenderness. NEUROLOGIC EXAMINATION: Patient is awake, alert and oriented x3. 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 No reason for any presyncopal episodes however is denying much lightheadedness. Follow-up outpatient and if continued lightheadedness may consider event monitor. Objective - Vital Signs Vital signs: Vital Signs Temp 98.0 F 09/08/21 08:20 Pulse 90 09/08/21 10:05 Resp 18 09/08/21 10:05 BP 128/86 09/08/21 08:20 Pulse Ox 96 09/08/21 08:20 Intake & Output 09/07/21 09/08/21 09/08/21 18:59 06:59 18:59 Intake Total 120 Balance 120 Weight 89.811 kg Intake: Oral 120 Other: Voiding Method Toilet Toilet Toilet # Voids 1 1 1 - Labs CBC & Chem 7: 09/06/21 14:52 09/07/21 11:05
[2021-09-08 13:44] VITALS: BP 135/87; PULSE 86
--- NOTE | 2021-09-08 23:01 | P.DS ---
Providers Date of admission: 09/06/21 21:29 Attending physician: Tarsha Storm Consults: 09/06/21 21:30 Consult Physician Urgent Consulting Provider: Christiano Jackson Consult Reason/Comments: Vertebral basilar artery insufficiency Do you want consulting provider notified?: Already Contacted 09/07/21 08:45 Consult Physician Urgent Consulting Provider: Graciela Young Consult Reason/Comments: vertebral a occlusion Do you want consulting provider notified?: Already Contacted 09/07/21 09:56 Consult Physician Urgent Consulting Provider: Theodore Guillen Consult Reason/Comments: Presyncope Do you want consulting provider notified?: Yes Primary care physician: [facility] Course: Diagnoses: Presyncope right vertebral artery occlusion Hypothyroidism Hyperlipidemia History of CVA Hospital course: This is a pleasant 65 years old male with past medical history of CVA/TIA, Hyperlipidemia, hypothyroidism Patient presents because of dizziness. Patient states that he had some blurriness in his right eye about 2-3 months ago, his primary doctor referred him to lathe winder who suggested computed tomography scan and ultrasound showing a blockage in his right side of the neck arteries, he is supposed to get a computed tomography scan with contrast next week for this reason however yesterday he felt foggy in his brain he does not describe it as dizziness but he felt about to pass out. Patient did not lose consciousness. Also denied chest pain or dyspnea. No other symptoms. He denies smoking, alcohol or illicit drugs. CTA of the head and neck: Occlusion of the right vertebral artery extending from its origin to the intracranial portion. There is back filling of the intracranial portion near the origin of the basilar artery. Patient has been evaluated by vascular surgery team and recommended no surgical intervention. As so fruit grader and neurologist saw the patient Patient was started on aspirin 81 mg which is home dose and added Plavix 75 mg daily, by both fruit grader and neurologist services. Risk of bleeding explained for the patient including but not limited in 2 bleeding of the brain and he verbalized understanding and acceptance to treatment. Also neurologist recommended EEG and MRI of the brain but because patient was eager to go home over the weekend as today is Friday neurologist suggested this can be done as an outpatient since the patient is improved. Today in the morning patient was already addressed up in his bed and ready to go home ever before medical team and consultants round. He says his back to his normal state and his been asymptomatic today. No more confusion or blurred vision, no headache or further fogginess of the brain. No dizziness. No chest pain or dyspnea. No change in urine or bowel habits. No fever. Patient has been cleared for discharge by all consultants including vascular surgery, fruit grader in the neurologist. Patient informed for the need to do MRI of the brain and EEG as an outpatient with the neurologist and he verbalized understanding and acceptance. Problems and management plan were discussed with the patient and he verbalized understanding and acceptance Patient was found stable and can be discharged home and guarded prognosis however he needs follow-up as an outpatient. Patient was instructed to follow up with PCP Dr. oRdriguez within one week and patient agrees Patient was instructed to follow up with fruit grader Dr. Barrett in one week, with the neurologist and Dr. junito Carcamo or Junito Suazo are suggested for him to follow up in one week , also Dr. Jackson is another neurologist suggested for him. Patient also instructed to follow up with vascular surgeon Dr. Young in 1-2 weeks and he verbalized understanding and acceptance. Patient states he is willing to make his own appointments Physical exam Gen: patient is a AAOx3, no distress CVS: S1-S2, RRR, no murmur Lungs: B/L CTA, no wheezing Abdomen: soft, no distention, no tenderness, positive bowel sounds Extremity: no leg edema or induration Time spent more than 35 minutes Patient Condition at Discharge: Stable Plan - Discharge Summary Discharge Rx Participant: No New Discharge Prescriptions: New Famotidine [Pepcid] 20 mg PO BID #30 tab Clopidogrel [Plavix] 75 mg PO DAILY #30 tab Atorvastatin [Lipitor] 80 mg PO HS #30 tab Continue Aspirin 81 mg PO DAILY #30 tab Levothyroxine Sodium [Synthroid] 175 mcg PO DAILY Discontinued Atorvastatin [Lipitor] 40 mg PO HS Discharge Medication List Levothyroxine Sodium [Synthroid] 175 mcg PO DAILY 09/06/21 [History] Aspirin 81 mg PO DAILY #30 tab 09/08/21 [Rx] Atorvastatin [Lipitor] 80 mg PO HS #30 tab 09/08/21 [Rx] Clopidogrel [Plavix] 75 mg PO DAILY #30 tab 09/08/21 [Rx] Famotidine [Pepcid] 20 mg PO BID #30 tab 09/08/21 [Rx] Follow up Appointment(s)/Referral(s): Bhargavi Vega MD [REFERRING] - 1 Week (Neurologist, please make appointment friday) Neida Rodriguez III, MD [Primary Care Provider] - 1-2 days (please make appointment friday) Graciela Young DO [STAFF PHYSICIAN] - 1 Week (Vascular surgeon, please make appointment friday) Margy Vega MD [REFERRING] - 1 Week (Neurologist, please make appointment friday) Christiano Jackson MD [STAFF PHYSICIAN] - 2 Weeks (Neurologist, please make appointment friday) Philip Barrett MD [STAFF PHYSICIAN] - 1 Week (please make appointment friday) Patient Instructions/Handouts: Chest Pain (DC), Peripheral Vascular Disease (DC) Activity/Diet/Wound Care/Special Instructions: Heart healthy diet Activity is restricted till you see your doctor if continued lightheadedness may consider event monitor With your fruit grader We recommend he follow up with neurologist and interventional neurologist, please talk to your doctor also we recommend repeat MRI Brain w/ and w/o contrast to be done as outpatient as well as recommend routine EEG Discharge Disposition: HOME SELF-CARE
--- NOTE | 2021-09-11 13:09 | CA ---
Transthoracic Echo Report Name: Blane Payne Age: 65 Gender: M : 1955 Exam Date: 09/07/2021 10:17 Exam Location: [facility] Ht (in): 72 Wt (lb): 198 Ordering Physician: Sergei Pendleton MD Attending/Referring Phys: [id number], Helder Supervisor Heat Treating Freya Ruiz RDCS Procedure CPT: Indications: Rule out heart disease Cardiac Hx: Technical Quality: Good Contrast 1: Total Dose (mL): Contrast 2: Total Dose (mL): MEASUREMENTS (Male / Female) Normal Values 2D ECHO LV Diastolic Diameter PLAX 4.2 cm 4.2 - 5.9 / 3.9 - 5.3 cm LV Systolic Diameter PLAX 2.6 cm IVS Diastolic Thickness 1.3 cm 0.6 - 1.0 / 0.6 - 0.9 cm LVPW Diastolic Thickness 1.2 cm 0.6 - 1.0 / 0.6 - 0.9 cm LV Relative Wall Thickness 0.6 RV Internal Dim ED PLAX 2.8 cm LA Systolic Diameter LX 2.9 cm 3.0 - 4.0 / 2.7 - 3.8 cm LA Volume 21.2 cm??? 18 - 58 / 22 - 52 cm??? M-MODE Aortic Root Diameter MM 3.8 cm MV E Point Septal Separation 1.1 cm AV Cusp Separation MM 1.8 cm DOPPLER AV Peak Velocity 132.5 cm/s AV Peak Gradient 7.0 mmHg AI Peak Velocity 384.5 cm/s AI Peak Gradient 59.1 mmHg AI Pressure Half Time 606.8 ms MV Area PHT 2.8 cm??? Mitral E Point Velocity 75.6 cm/s Mitral A Point Velocity 77.2 cm/s Mitral E to A Ratio 1.0 MV Deceleration Time 270.6 ms MV E' Velocity 7.1 cm/s Mitral E to MV E' Ratio 10.6 FINDINGS Left Ventricle Left ventricular ejection fraction is estimated at 60-65 %. Left ventricular cavity size normal. Mild concentric left ventricular hypertrophy. Right Ventricle Normal right ventricular size and function. Unable to estimate the right ventricular systolic pressure. Right Atrium Normal right atrial size. Left Atrium Normal left atrial size. No evidence for an atrial septal defect. Mitral Valve Trace mitral regurgitation. No mitral stenosis, or prolapse. Aortic Valve Focal thickening of the aortic valve cusps. Mild aortic regurgitation. Tricuspid Valve Structurally normal tricuspid valve. Pulmonic Valve Structurally normal pulmonic valve. Pericardium No pericardial effusion. Aorta Mild aortic dilatation at the level of the sinuses of valsalva (root). CONCLUSIONS Left ventricular ejection fraction is estimated at 60-65 %. Left ventricular cavity size normal. Mild concentric left ventricular hypertrophy. Trace mitral regurgitation No pericardial effusion. Previewed by: Dr. Estiven Banda DO (Electronically Signed) Final Date: 07 Sep 2021 12:30
== END 2021-09-08 17:03 | disposition home or self-care (01) | DRG 68 ==
LOC: EC 12:48 → 3SCARD 21:29
PROVIDERS: ADMIT Hospitalist; ATTEND Hospitalist
DX: I65.01 Occlusion and stenosis of right vertebral artery (principal); E78.00 Pure hypercholesterolemia, unspecified; I45.10 Unspecified right bundle-branch block; I65.21 Occlusion and stenosis of right carotid artery; R55 Syncope and collapse; K57.90 Diverticulosis of intestine, part unspecified, without perforation or abscess without bleeding; G31.89 Other specified degenerative diseases of nervous system; I34.0 Nonrheumatic mitral (valve) insufficiency; E78.5 Hyperlipidemia, unspecified; E03.9 Hypothyroidism, unspecified; Z90.49 Acquired absence of other specified parts of digestive tract; Z79.890 Hormone replacement therapy; Z79.82 Long term (current) use of aspirin; Z86.73 Personal history of transient ischemic attack (TIA), and cerebral infarction without residual deficits; Z80.9 Family history of malignant neoplasm, unspecified; Z83.2 Family history of diseases of the blood and blood-forming organs and certain disorders involving the immune mechanism; Z82.49 Family history of ischemic heart disease and other diseases of the circulatory system; Z63.4 Disappearance and death of family member; Z79.899 Other long term (current) drug therapy; Z80.3 Family history of malignant neoplasm of breast; Z80.8 Family history of malignant neoplasm of other organs or systems
CPT/HCPCS: 36415; 70496; 70498; 80048; 80053; 80061; 83036; 83735; 84443; 84484; 85025; 85610; 93005; 93306; 96374; 99285

== ENCOUNTER → 2021-10-02 | Outpatient (CLI) | payer MEDICARE, BC ==
--- NOTE | 2021-10-03 07:11 | US ---
EXAMINATION TYPE: US thyroid st tissue head/neck DATE OF EXAM: 10/02/2021 COMPARISON: NONE CLINICAL HISTORY: R22.1 LOCALIZED SWELLING. Pt states physician felt swelling of thyroid, pt states h ypothyroid, pt on thyroid meds x 9 yrs. GLAND SIZE: Right Lobe: 2.8 x 1.2 x 0.9 cm Overall Parenchyma: heterogenous Left Lobe: 2.5 x 0.6 x 1.0 cm Overall Parenchyma: heterogeneous Isthmus Thickness: 0.2 cm Bilateral neck scanned, no evidence of lymphadenopathy. Thyroid small in size, heterogeneous with no definite nodules visualized bilaterally. IMPRESSION: Diminutive thyroid gland with the glandular heterogeneity in no distinct nodules.
== END | disposition home or self-care (01) ==
LOC: RADUSWWP 15:40
PROVIDERS: ATTEND Family Medicine
DX: R22.1 Localized swelling, mass and lump, neck (principal)
CPT/HCPCS: 76536

== ENCOUNTER → 2021-10-03 | Outpatient (CLI) | payer MEDICARE, BC ==
--- NOTE | 2021-10-03 13:27 | EEG ---
ELECTROENCEPHALOGRAM REPORT DATE OF SERVICE: 10/03/2021 CLINICAL HISTORY: This is a 65-year-old gentleman with pre-syncopal episode. The video EEG is obtained to evaluate for seizure epileptiform activity. Relevant medication: The patient is not on any antiepileptic drug. EEG TYPE: A routine 21-channel EEG is performed with video using the 10/20 electrode placement system. DESCRIPTION: Only wakefulness is obtained. During awake state the posterior-dominant rhythm consists of low to moderate voltage of 9 to 10 hertz activity. There is no physiological sleep architecture seen. There is no focal slowing. Interictal and ictal is none. ACTIVATION PROCEDURE: Photic stimulation did not evoke a posterior driving response. There is no abnormality during the photic stimulation. Hyperventilation was not performed. CLINICAL INTERPRETATION: This is a normal routine EEG. There is no focal slowing, epileptiform discharge or seizure on the EEG. Clinical correlation is recommended. DASHAWN / SABRINA: [id number] / MTDD
== END | disposition home or self-care (01) ==
LOC: NEUROMAIN 07:46
PROVIDERS: ATTEND Student in an Organized Health Care Education/Training Program
DX: R55 Syncope and collapse (principal)
CPT/HCPCS: 95816

== ENCOUNTER → 2022-03-26 | Outpatient (CLI) | payer MEDICARE, BC ==
[2022-03-26 14:31] LABS: African American GFR (CKD) >90 (>60 ml/min/1.73 sqM); Blood Urea Nitrogen 16 mg/dL (9-20); Non-African American GFR(CKD) 90 (>60 ml/min/1.73 sqM)
--- NOTE | 2022-03-26 22:10 | CT ---
EXAMINATION TYPE: CT angio head neck CT DLP: 1048 mGycm, Automated exposure control for dose reduction was used. DATE OF EXAM: 03/26/2022 5:27 PM COMPARISON: 09/06/2021. CLINICAL INDICATION:Male, 66 years old with history of I65.01 OCCLUSION AND STENOSIS; TECHNIQUE: Axially acquired helical CT angiogram of the head and neck was obtained with contrast. Axi al images are supplemented with 3D reconstructions which [facility] NASCET criteria used. Contrast used: 65 cc of Isovue-370 Oral contrast used: None. FINDINGS: CTA HEAD: No evidence of acute intracranial hemorrhage, mass effect, or midline shift. The ventricles, sulci, a nd cisterns are unremarkable. The visualized portions of the internal carotid arteries, middle cerebral arteries, anterior cerebral arteries, and posterior cerebral arteries are patent. The basilar and vertebral arteries are patent. Atherosclerosis of the intracranial internal carotid a rteries. CTA NECK: Right Carotid System: The common carotid artery and external carotid artery are patent. The carotid bifurcation demonstrate s no evidence of hemodynamically significant stenosis. The remaining portions of the internal carotid artery demonstrate normal size without significant narrowing. Left Carotid System: The common carotid artery and external carotid artery are patent. The carotid bifurcation demonstrate s no evidence of hemodynamically significant stenosis. The remaining portions of the internal carotid artery demonstrate normal size without significant narrowing. The right vertebral artery is occluded extending from just past its origin into the intracranial port ion of the vertebral artery with reconstitution just before the confluence with the left vertebral ar michelle. Is a three-vessel aortic arch. The origins of the great vessels are patent. No evidence of hemodynami hyacinth significant stenosis. IMPRESSION: 1. Redemonstration of right vertebral artery occlusion essentially extending from its origin to the intracranial portion just before the confluence of the left vertebral artery. This is unchanged from prior. 2. No evidence of dissection of the cervical internal carotid arteries or any evidence of significan t stenosis at the carotid bifurcations. 3. No evidence of intracranial high-grade stenosis or intracranial aneurysm.
== END | disposition home or self-care (01) ==
LOC: RADCTMAIN 13:47
PROVIDERS: ATTEND Psychiatry & Neurology Vascular Neurology
DX: I65.01 Occlusion and stenosis of right vertebral artery (principal)
CPT/HCPCS: 82565; 84520; 70496; 70498; 36415; Q9967

== ENCOUNTER → 2022-09-19 | Day surgery (SDC) | payer MEDICARE, BC ==
[2022-09-17 11:21] VITALS: BMI 25.7
[~2022-09-19] MED LIST: DEXAMETHASONE SOD PHOSPHATE 4 MG/ML 1 ML VIAL IVP ONE; LACTATED RINGERS 1,000 ML IV ONE; LIDOCAINE 1% INJ 10MG/ML (20 ML MDV) SQ ONE; MIDAZOLAM 2 MG/2 ML VIAL ONE; ONDANSETRON 4 MG/2 ML VIAL IVP ONE; ONDANSETRON 4 MG/2 ML VIAL ONE; PROPOFOL 10 MG/ML 20 ML VIAL IV ONE; Pre Op ABX Message 1 EACH MISC MISCELLANE ONE; fentaNYL (PF) 50 MCG/ML 2 ML AMP ONE
[2022-09-19 12:07] LABS: Glucose,Whole Blood 89 mg/dL (70-110)
[2022-09-19 12:14] VITALS: RESP 16; TEMP 97.8
--- NOTE | 2022-09-19 13:55 | P.OP ---
Date of Procedure: 09/19/22 Preoperative Diagnosis: Suspicion left temporal arteritis. Postoperative Diagnosis: Same, pending path report. Procedure(s) Performed: Left temporal artery excisional biopsy. Implants: None. Anesthesia: local (With conscious sedation supplied by the department anesthesiology.) Surgeon: Blayne Galaviz Pathology: other (Excise segment of left temporal artery.) Condition: stable Disposition: no change Indications for Procedure: Patient is a 66-year-old male who presented with visual disturbances of the left thigh. Workup including inflammatory markers raised the suspicion of giant cell arteritis involving the left temporal artery. The patient was placed on steroids and his visual changes improved. Patient is now offered biopsy for definitive diagnosis. Operative Findings: Normal appearing temporal artery segment. Description of Procedure: Patient was brought to the operating room and placed in the supine position. He was administered sedation by the department anesthesiology. Patient's left temporal area was sterilely prepped and draped in usual manner. 1% Xylocaine was utilized for local anesthesia tissues overlying the temporal artery. Through this anesthetized area and incision was made carried down through subcu change tissues. Hemostasis was achieved utilizing electrocautery. The temporal artery was identified dissected free of investing tissues. Grossly the artery appeared normal. The artery was dissected so that at least a 2 cm segment of artery could be harvested. The artery was ligated both proximally and distally and the segment excised and sent to pathology. Hemostasis was achieved with electrocautery where appropriate. The wound was then closed with 4-0 Monocryl placed in running intradermal fashion. This was followed by application of skin glue. Patient tolerated procedure well and was taken to the recovery area in satisfactory and stable condition. Plan - Discharge Summary Discharge Rx Participant: No New Discharge Prescriptions: No Action Aspirin 81 mg PO DAILY #30 tab predniSONE [Deltasone] 20 mg PO PC-BRKFST Zinc Gluconate [Zinc] 50 mg PO DAILY Cholecalciferol [Vitamin D3 (25 Mcg = 1000 Iu)] 50 mcg PO DAILY Clopidogrel [Plavix] 75 mg PO DAILY #30 tab Atorvastatin [Lipitor] 80 mg PO HS #30 tab Omeprazole 20 mg PO PC-BRKFST [place]-3/Dha/Epa/Fish Oil [Fish Oil 1,000 mg Softgel] 1 each PO DAILY Levothyroxine Sodium 150 mcg PO QAM Discharge Medication List Aspirin 81 mg PO DAILY #30 tab 09/08/21 [Rx] Atorvastatin [Lipitor] 80 mg PO HS #30 tab 09/08/21 [Rx] Clopidogrel [Plavix] 75 mg PO DAILY #30 tab 09/08/21 [Rx] Cholecalciferol [Vitamin D3 (25 Mcg = 1000 Iu)] 50 mcg PO DAILY 09/17/22 [History] Levothyroxine Sodium 150 mcg PO QAM 09/17/22 [History] [place]-3/Dha/Epa/Fish Oil [Fish Oil 1,000 mg Softgel] 1 each PO DAILY 09/17/22 [History] Omeprazole 20 mg PO PC-BRKFST 09/17/22 [History] Zinc Gluconate [Zinc] 50 mg PO DAILY 09/17/22 [History] predniSONE [Deltasone] 20 mg PO PC-BRKFST 09/17/22 [History]
[2022-09-19 14:07] VITALS: BP 137/82; PULSE 60
== END ==
LOC: OR 11:19
PROVIDERS: ATTEND Surgery
DX: I65.02 Occlusion and stenosis of left vertebral artery (principal); Z86.73 Personal history of transient ischemic attack (TIA), and cerebral infarction without residual deficits; K21.9 Gastro-esophageal reflux disease without esophagitis; I10 Essential (primary) hypertension; E03.9 Hypothyroidism, unspecified; E78.5 Hyperlipidemia, unspecified; F32.A Depression, unspecified; Z87.19 Personal history of other diseases of the digestive system; G47.30 Sleep apnea, unspecified; F10.20 Alcohol dependence, uncomplicated; Z79.82 Long term (current) use of aspirin; Z79.02 Long term (current) use of antithrombotics/antiplatelets; Z79.890 Hormone replacement therapy; Z79.899 Other long term (current) drug therapy; Z91.048 Other nonmedicinal substance allergy status
CPT/HCPCS: 88305; 37609; J2250; J1100; J2405; J2001; J3010; J2704

== ENCOUNTER → 2023-03-25 | Outpatient (CLI) | payer MEDICARE, BC ==
[2023-03-25 17:44] LABS: ALT 39 U/L (4-49); AST 45 U/L (17-59); African American GFR (CKD) >90 (>60 ml/min/1.73 sqM); Albumin 4.2 g/dL (3.5-5.0); Albumin/Globulin Ratio 1.7; Alkaline Phosphatase 74 U/L (38-126); Anion Gap 7 mmol/L; Blood Urea Nitrogen 10 mg/dL (9-20); Calcium 9.5 mg/dL (8.4-10.2); Carbon Dioxide 30 mmol/L (22-30); Chloride 102 mmol/L (98-107); Globulin 2.5 g/dL; Glucose 127 mg/dL (74-99); Non-African American GFR(CKD) 88 (>60 ml/min/1.73 sqM); Potassium 3.7 mmol/L (3.5-5.1); Sodium 139 mmol/L (137-145); Total Bilirubin 0.5 mg/dL (0.2-1.3); Total Protein 6.7 g/dL (6.3-8.2)
[2023-03-25 18:01] LABS: Basophils % (A) 1 %; Eosinophils # (A) 0.1 k/uL (0-0.7); Eosinophils % (A) 2 %; HCT 43.6 % (39.0-53.0); HGB 14.9 gm/dL (13.0-17.5); Lymphocytes # (A) 1.1 k/uL (1.0-4.8); Lymphocytes % (A) 21 %; MCH 30.6 pg (25.0-35.0); MCHC 34.2 g/dL (31.0-37.0); MCV 89.7 fL (80.0-100.0); Mean Platelet Volume 7.1; Monocytes # (A) 0.2 k/uL (0-1.0); Monocytes % (A) 3 %; Neutrophils # (A) 3.8 k/uL (1.3-7.7); Neutrophils % (A) 72 %; Platelet Count 258 k/uL (150-450); RBC 4.86 m/uL (4.30-5.90); RDW 12.2 % (11.5-15.5); WBC 5.3 k/uL (3.8-10.6)
--- NOTE | 2023-03-25 19:02 | CT ---
EXAMINATION TYPE: CT abdomen pelvis w con DATE OF EXAM: 03/25/2023 COMPARISON: 04/23/2021 HISTORY: Left side and Left lower abdominal pain x [address] DLP: 839.4 mGycm CONTRAST: CT scan of the abdomen and pelvis is performed without Oral Contrast and with IV Contrast, patient in jected with 100 CC mL of Isovue 300. FINDINGS: LUNG BASES-: No visible nodule. No infiltrate. LIVER/GB: Gallbladder surgically absent. There is mild hepatic steatosis. No space occupying hepatic lesion. Biliary tree is of normal caliber. PANCREAS: No inflammation. No distinct mass. SPLEEN: No splenic enlargement. No lesion seen. ADRENALS: No nodule. No thickening. KIDNEYS/BLADDER: No hydronephrosis. No nephrolithiasis. No distinct renal mass. Urinary bladder g rossly unremarkable. BOWEL: Normal appendix. Minimal strandy attenuation surrounding the distal lead descending colon may reflect mild diverticulitis. There is moderate diverticulosis of the sigmoid colon. No evidence for a bscess or perforation. GENITAL ORGANS: No gross abnormality. LYMPH NODES: No greater than 1cm abdominal or pelvic lymph nodes are appreciated. AORTA: No significant abnormality. OSSEOUS STRUCTURES: No significant abnormality is seen. OTHER: No significant additional abnormality is seen. IMPRESSION: 1. Minimal strandy attenuation surrounding the distal lead descending colon may reflect mild divertic ulitis. There is moderate diverticulosis of the sigmoid colon. No evidence for abscess or perforation .
== END | disposition home or self-care (01) ==
LOC: RADCTMAIN 16:52
PROVIDERS: ATTEND Family Medicine
DX: K57.30 Diverticulosis of large intestine without perforation or abscess without bleeding (principal); Z90.49 Acquired absence of other specified parts of digestive tract
CPT/HCPCS: 80053; 85025; 74177; 36415; Q9967

== ENCOUNTER 2023-07-09 12:03 | Emergency (ER) | payer MEDICARE, BC ==
[2023-07-09 12:18] VITALS: RESP 16; TEMP 97.8
--- NOTE | 2023-07-09 12:38 | ED ---
Headache HPI - General Chief Complaint: Headache Stated Complaint: Dizziness Time Seen by Provider: 07/09/23 12:15 Source: patient, RN notes reviewed Mode of arrival: ambulatory Limitations: no limitations - History of Present Illness Initial Comments: 67-year-old male, with a past medical history of TIA, presents emergency department with a chief complaint of headache and dizziness over the last week. Patient states that he has had a throbbing sensation in his head that is associated with changes in movement, securely from lying down to sitting up. Patient states when he is changing head positions he also has a feeling of dizziness. Patient denies any changes in hearing or vision loss. Patient denies any acute neurological deficits such as weakness, facial drooping, slurred speech. States that he has regularly checked his blood pressure at home with nonelevated readings. Has a history of a viral URI and bronchitis at the end of April, where it was told that he has bilateral fluid behind both of his TMs. patient has not taken anything at home to alleviate symptoms. - Related Data Home Medications Medication Instructions Recorded Confirmed Cholecalciferol [Vitamin D3 (25 50 mcg PO DAILY 09/17/22 09/19/22 Mcg = 1000 Iu)] Levothyroxine Sodium 150 mcg PO QAM 09/17/22 09/19/22 [place]-3/Dha/Epa/Fish Oil [Fish Oil 1 each PO DAILY 09/17/22 09/19/22 1,000 mg Softgel] Zinc Gluconate [Zinc] 50 mg PO DAILY 09/17/22 09/19/22 Acetylcysteine [Nac] 500 mg PO DAILY 07/09/23 07/09/23 Albuterol Inhaler [Ventolin Hfa 1 - 2 puff INHALATION RT-Q6H PRN 07/09/23 07/09/23 Inhaler] Atorvastatin [Lipitor] 80 mg PO DAILY 07/09/23 07/09/23 Citalopram Hydrobromide [CeleXA] 2.5 mg PO DAILY 07/09/23 07/09/23 Ezetimibe [Zetia] 10 mg PO DAILY 07/09/23 07/09/23 Fluticasone Nasal [place] [Flonase 1 - 2 spray EA NOSTRIL DAILY PRN 07/09/23 07/09/23 Nasal [place]] Previous Rx's Medication Instructions Recorded Aspirin 81 mg PO DAILY #30 tab 09/08/21 Clopidogrel [Plavix] 75 mg PO DAILY #30 tab 09/08/21 Allergies Allergy/AdvReac Type Severity Reaction Status Date / Time No Known Allergies Allergy Verified 07/09/23 14:10 Review of Systems ROS Statement: Those systems with pertinent positive or pertinent negative responses have been documented in the HPI. ROS Other: All systems not noted in ROS Statement are negative. Past Medical History Past Medical History: CVA/TIA, Hearing Disorder / Deafness, Hyperlipidemia, Thyroid Disorder Additional Past Medical History / Comment(s): Hx TIA with no residual(date unknown). Hypothyroidism. Diverticular disease. Hx Shingles on face recently, now recovered. Hard of hearing, has hearing aids, wears them infrequently. History of Any Multi-Drug Resistant Organisms: None Reported Past Surgical History: Cholecystectomy, Heart Catheterization, Orthopedic Surgery Additional Past Surgical History / Comment(s): Left foot surgery. Past Anesthesia/Blood Transfusion Reactions: No Reported Reaction Past Psychological History: No Psychological Hx Reported Smoking Status: Never smoker Past Alcohol Use History: None Reported, Rare Past Drug Use History: None Reported - Past Family History Mother Family Medical History: Cancer Additional Family Medical History / Comment(s): Breast cancer. Phlebetis. Sister(s) Family Medical History: Cancer Additional Family Medical History / Comment(s): Brain cancer. Daughter(s) Family Medical History: Deep Vein Thrombosis (DVT) Additional Family Medical History / Comment(s): Daughter from lupus nep hritis/pancreatic and renal failure Father Family Medical History: Myocardial Infarction ([place]) Additional Family Medical History / Comment(s): Father of a massive [place] at the age of 57 yrs. General Exam Limitations: no limitations General appearance: alert, in no apparent distress Head exam: Present: atraumatic, normocephalic, normal inspection Eye exam: Present: normal appearance, PERRL, EOMI. Absent: scleral icterus, con junctival injection, nystagmus, periorbital swelling Pupils: Present: normal accommodation Expanded Pupils: Regular, Round: Bilateral, Reactive: Bilateral ENT exam: Present: normal exam, mucous membranes moist Expanded TM/Canal exam: Effusion: Right TM, Left TM Neck exam: Present: normal inspection. Absent: tenderness, meningismus, lymphadenopathy Respiratory exam: Present: normal lung sounds bilaterally. Absent: respiratory distress, wheezes, rales, rhonchi, stridor Cardiovascular Exam: Present: regular rate, normal rhythm, normal heart sounds. Absent: systolic murmur, diastolic murmur, rubs, gallop, clicks GI/Abdominal exam: Present: soft, normal bowel sounds. Absent: distended, tenderness, guarding, rebound, rigid Extremities exam: Present: normal inspection, full ROM, normal capillary refill. Absent: tenderness, pedal edema, joint swelling, calf tenderness Back exam: Present: normal inspection Neurological exam: Present: alert, oriented X3, CN II-XII intact Psychiatric exam: Present: normal affect, normal mood Skin exam: Present: warm, dry, intact, normal color. Absent: rash Course Vital Signs 07/09/23 12:08 Temperature 97.8 F Pulse Rate 87 Respiratory 16 Rate Blood Pressure 126/86 O2 Sat by Pulse 98 Oximetry Medical Decision Making - Medical Decision Making Was pt. sent in by a medical professional or institution (, PA, ORTHOPEDIC RN, urgent care, hospital, or half-way...) When possible be specific @ -[No] Did you speak to anyone other than the patient for history (EMS, parent, family, police, friend...)? What history was obtained from this source @ -[No] Did you review nursing and triage notes (agree or disagree)? Why? @ -[I reviewed and agree with nursing and triage notes] Were old charts reviewed (outside hosp., previous admission, EMS record, old EKG, old radiological studies, urgent care reports/EKG's, half-way records)? Report findings @ -[No old charts were reviewed] Differential Diagnosis (chest pain, altered mental status, abdominal pain women, abdominal pain men, vaginal bleeding, weakness, fever, dyspnea, syncope, headache, dizziness, GI bleed, back pain, seizure, CVA, palpatations, mental health, musculoskeletal)? @ -Differential Headache: Migraine, tension, cluster, carbon monoxide, central venous thrombosis, pension karma temporal arteritis, acute closure glaucoma, intercranial hemorrhage, mastoiditis, sinusitis, head injury, this is not meant to be an all-inclusive list. EKG interpreted by me (3pts min.). @ -1305, sinus rhythm, regular rate 77, [place] interval 152, QTc 353. No acute signs of ischemia, no ST segment elevation, depression. X-rays interpreted by me (1pt min.). @ -[None done] CT interpreted by me (1pt min.). @ -[None done] U/S interpreted by me (1pt. min.). @ -[None done] What testing was considered but not performed or refused? (CT, X-rays, U/S, labs)? Why? @ -[None] What meds were considered but not given or refused? Why? @ -[None] Did you discuss the management of the patient with other professionals (professionals i.e. DrRigo, PA, ORTHOPEDIC RN, lab, RT, psych nurse, social worker psychiatric, family lawyer, teacher, public relations officer, dependency case manager)? Give summary @ -[No] Was smoking cessation discussed for >3mins.? @ -[No] Was critical care preformed (if so, how long)? @ -[No] Were there social determinants of health that impacted care today? How? (Homelessness, low income, unemployed, alcoholism, drug addiction, transportation, low edu. Level, literacy, decrease access to med. care, halfway, rehab)? @ -[No] Was there de-escalation of care discussed even if they declined (Discuss DNR or withdrawal of care, Hospice)? DNR status @ -[No] What co-morbidities impacted this encounter? (DM, HTN, Smoking, COPD, CAD, Cancer, CVA, ARF, Chemo, Hep., AIDS, mental health diagnosis, sleep apnea, morbid obesity)? @ -CAD, HTN Was patient admitted / discharged? Hospital course, mention meds given and route, prescriptions, significant lab abnormalities, going to OR and other pertinent info. @ -67 year old male presents to emergency department with chief complaints of headache and dizziness. CT head without contrast no acute intracranial process. no presence of leukocytosis. NIH stroke scale score of zero. Patient does not exhibit any cerebellar ataxia or acute neurological deficits. discussed with patient that symptoms of dizziness can likely be attributed to a viral infection and or previous URI and bilateral fluid behind TMs. discuss that patient use intranasal steroid and antihistamine, zyrtec, to aid in decongestion. patient comfortable with discharge. Undiagnosed new problem with uncertain prognosis? @ -[No] Drug Therapy requiring intensive monitoring for toxicity (Heparin, Nitro, Insulin, Cardizem)? @ -[No] Were any procedures done? @ -[No] Diagnosis/symptom? @ -dizziness Acute, or Chronic, or Acute on Chronic? @ -acute Uncomplicated (without systemic symptoms) or Complicated (systemic symptoms)? @ -uncomplicated Side effects of treatment? @ -[No] Exacerbation, Progression, or Severe Exacerbation? @ -[No] Poses a threat to life or bodily function? How? (Chest pain, [place], [place], pneumonia, PE, COPD, DKA, ARF, appy, cholecystitis, CVA, Diverticulitis, Homicidal, Suicidal, threat to staff... and all critical care pts) @ -[No] - Lab Data Result diagrams: 07/09/23 13:07/09/23 13: Lab Results 07/09/23 07/09/23 07/09/23 Range/Units 13: 13: 13:01 WBC 5.3 (3.8-10.6) k/uL RBC 4.69 (4.30-5.90) m/uL Hgb 14.7 (13.0-17.5) gm/dL Hct 42.4 (39.0-53.0) % MCV 90.4 (80.0-100.0) fL MCH 31.3 (25.0-35.0) pg MCHC 34.7 (31.0-37.0) g/dL RDW 12.5 (11.5-15.5) % Plt Count 235 (150-450) k/uL MPV 6.8 Neutrophils % 73 % Lymphocytes % 20 % Monocytes % 5 % Eosinophils % 1 % Basophils % 1 % Neutrophils # 3.9 (1.3-7.7) k/uL Lymphocytes # 1.1 (1.0-4.8) k/uL Monocytes # 0.3 (0-1.0) k/uL Eosinophils # 0.0 (0-0.7) k/uL Basophils # 0.0 (0-0.2) k/uL PT 11.2 (10.0-12.5) sec INR 1.0 (<1.2) Sodium 140 (137-145) mmol/L Potassium 4.4 (3.5-5.1) mmol/L Chloride 108 H (98-107) mmol/L Carbon Dioxide 26 (22-30) mmol/L Anion Gap 6 mmol/L BUN 17 (9-20) mg/dL Creatinine 0.76 (0.66-1.25) mg/dL Est GFR (CKD-EPI)AfAm >90 (>60 ml/min/1.73 sqM) Est GFR (CKD-EPI)NonAf >90 (>60 ml/min/1.73 sqM) Glucose 97 (74-99) mg/dL Calcium 9.2 (8.4-10.2) mg/dL Magnesium 2.0 (1.6-2.3) mg/dL Total Bilirubin 1.0 (0.2-1.3) mg/dL AST 54 (17-59) U/L ALT 44 (4-49) U/L Alkaline Phosphatase 72 (38-126) U/L Total Protein 6.9 (6.3-8.2) g/dL Albumin 4.1 (3.5-5.0) g/dL Disposition Clinical Impression: Dizziness Narrative: Please return to the Emergency Department if symptoms worsen or any other concerns. Patient can use intranasal glucocorticoid spray and antihistamines to aid in fullness and is a decongestion. Disposition: HOME SELF-CARE Condition: Good Instructions (If sedation given, give patient instructions): Dizziness (ED) Is patient prescribed a controlled substance at d/c from ED?: No Referrals: Antwon Fuentes MD [Primary Care Provider] - 1-2 days
--- NOTE | 2023-07-09 13:06 | CT ---
EXAMINATION TYPE: CT brain wo con DATE OF EXAM: 07/09/2023 COMPARISON: 09/06/2021. HISTORY: Headache and dizziness. CT DLP: 1095.4 mGycm Automated exposure control for dose reduction was used. FINDINGS: There is no acute intracranial hemorrhage, mass, mass effect, midline shift, extra-axial fluid collec tion or hydrocephalus. The hassan-white distinction is intact without evidence of an acute major vessel infarct. The visualized paranasal sinuses and mastoid air cells are clear. IMPRESSION: NO ACUTE INTRACRANIAL PROCESS.
[2023-07-09 13:21] LABS: Prothrombin Time 11.2 sec (10.0-12.5)
[2023-07-09 13:24] LABS: ALT 44 U/L (4-49); African American GFR (CKD) >90 (>60 ml/min/1.73 sqM); Albumin 4.1 g/dL (3.5-5.0); Anion Gap 6 mmol/L; Blood Urea Nitrogen 17 mg/dL (9-20); Calcium 9.2 mg/dL (8.4-10.2); Carbon Dioxide 26 mmol/L (22-30); Chloride 108 mmol/L (98-107); Glucose 97 mg/dL (74-99); Non-African American GFR(CKD) >90 (>60 ml/min/1.73 sqM); Sodium 140 mmol/L (137-145); Total Protein 6.9 g/dL (6.3-8.2)
[2023-07-09 13:34] LABS: Basophils % (A) 1 %; Eosinophils % (A) 1 %; HCT 42.4 % (39.0-53.0); HGB 14.7 gm/dL (13.0-17.5); Lymphocytes # (A) 1.1 k/uL (1.0-4.8); Lymphocytes % (A) 20 %; MCH 31.3 pg (25.0-35.0); MCHC 34.7 g/dL (31.0-37.0); MCV 90.4 fL (80.0-100.0); Mean Platelet Volume 6.8; Monocytes # (A) 0.3 k/uL (0-1.0); Monocytes % (A) 5 %; Neutrophils # (A) 3.9 k/uL (1.3-7.7); Neutrophils % (A) 73 %; Platelet Count 235 k/uL (150-450); RBC 4.69 m/uL (4.30-5.90); RDW 12.5 % (11.5-15.5); WBC 5.3 k/uL (3.8-10.6)
[2023-07-09 13:49] LABS: AST 54 U/L (17-59); Alkaline Phosphatase 72 U/L (38-126); Potassium 4.4 mmol/L (3.5-5.1)
[2023-07-09] MEDS: SODIUM CHLORIDE 0.9% 1,000 ML IV STA (14:31)
[2023-07-09 15:17] VITALS: BP 130/80; PULSE 82
== END 2023-07-09 15:00 | disposition home or self-care (01) ==
LOC: EC 12:03
DX: R42 Dizziness and giddiness (principal); E78.5 Hyperlipidemia, unspecified; E03.9 Hypothyroidism, unspecified; Z79.890 Hormone replacement therapy; Z79.899 Other long term (current) drug therapy
CPT/HCPCS: 36415; 70450; 80053; 83735; 85025; 85610; 93005; 99284

== ENCOUNTER 2023-12-04 10:36 | Emergency (ER) | payer MEDICARE, BC ==
[2023-12-04] MEDS ORDERED: MECLIZINE 12.5 MG TAB ONE (11:57)
[2023-12-04] MEDS ORDERED: SODIUM CHLORIDE 0.9% 1,000 ML BAG ONE (12:00)
--- NOTE | 2024-01-12 08:27 | CT ---
EXAM: CT head without contrast DATE OF EXAM: 12/04/23 INDICATION: Patient age:KEMAL MONTOYA : 1955 Reason for study: DIZZINESS AND HEADACHE DLP: 1737.1 SPP116/65ML COMPARISON: None, please note PACS downtime occurred during the radiologist interpretation of these i mages with limited priors/reports. TECHNIQUE: Multiple axial CT images of the brain were obtained without IV contrast. One or more CT do se reduction strategies were utilized during this examination. Total DLP administered was 1737 mGycm for all studies. FINDINGS: Extra-axial spaces: No abnormal extra-axial fluid collections. Ventricular system: Within normal limits Cerebral parenchyma: No acute intraparenchymal hemorrhage or mass effect. The hassan-white junction is well differentiated. Cerebellum: Unremarkable. Mass effect: No evidence of midline shift. Intracranial vasculature: Atherosclerotic calcifications of the intracranial vessels Soft tissues: Normal. Calvarium/osseous structures: No depressed skull fracture. Paranasal sinuses and mastoid air cells: Clear. Visualized orbits: Orbital contents are intact. IMPRESSION: No acute intracranial process. [facility], , 01/12/2024 8:24 AM
--- NOTE | 2024-01-12 09:25 | CT ---
EXAM: CT angiogram head CT angiogram neck DATE OF EXAM: 12/04/23 INDICATION: Patient age:KEMAL MONTOYA : 1955 Reason for study: DIZZINESS AND HEADACHE DLP: 1737.1 REV600/65ML COMPARISON: None, please note PACS downtime occurred during the radiologist interpretation of these i mages with limited priors/reports. TECHNIQUE: Axially acquired helical CT angiogram of the head was obtained with contrast utilizing 65 cc of Isovu e-370 administered intravenously. Axial images are supplemented with 3D reconstructions which were po st-processed at an independent workstation. Axially acquired helical CT Angiogram of the Neck was obtained with and without contrast utilizing 65 mL of Isovue-370 administered intravenously. Axial images are supplemented with coronal and sagittal MIP reconstructions. 3D reconstructions were also performed and were post-processed at an independent workstation. Estimated carotid stenosis was calculated using the NASCET criteria. One or more CT dose reduction strategies were utilized during this examination. Total DLP administere d was 1737 mGycm for all studies. FINDINGS: No evidence of acute intracranial hemorrhage, mass effect, or midline shift. The ventricles, sulci, a nd cisterns are unremarkable. 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 The left vertebral artery is patent and dominant. Basilar artery: The basilar artery is intact. The basilar artery bifurcation is normal. Internal Carotid arteries: The cervical, petrous, cavernous and supraclinoid segments are normal. TIFFANIE: Patent with no evidence of aneurysm. ACOM: Present without evidence of aneurysm. MCA: Patent with no evidence of aneurysm. CONSTRUCTION ADMINISTRATIVE ASSISTANT: Patent with no evidence of aneurysm. PCOM: Hypoplastic bilaterally. RIGHT CAROTID SYSTEM: The common carotid artery is patent. Carotid bifurcation demonstrates no hemody namically significant stenosis. Internal carotid artery is patent. LEFT CAROTID SYSTEM: The common carotid artery is patent. Carotid bifurcation demonstrates no hemody namically significant stenosis. Internal carotid artery is patent. The origins of the great vessels and vertebral arteries appear unremarkable. The right vertebral ana maria ry is occluded from its origin to the intracranial portion with reconstitution. The left vertebral ar michelle is patent. No significant stenosis of the left vertebral artery. IMPRESSIONS: 1. 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 The left vertebral artery is patent. 2. No evidence for dissection or aneurysm of the carotid arteries. 3. No significant stenosis involving the carotid bifurcations. 4. No evidence of high-grade stenosis or intracranial aneurysm. [facility], , 01/12/2024 9:22 AM
== END 2023-12-04 15:00 | disposition home or self-care (01) ==
LOC: EC 10:36
CPT/HCPCS: 70450; 70496; 70498; 80053; 81003; 83735; 84439; 84443; 84484; 85025; 85610; 85730; 93005; 96360; 96361; 99284

== ENCOUNTER 2024-01-03 01:29 | Emergency (ER) | payer MEDICARE, BC ==
[2024-01-03 01:51] VITALS: RESP 16
--- NOTE | 2024-01-03 05:29 | ED ---
Anxiety HPI - General Chief Complaint: Anxiety Stated Complaint: Mental health Source: patient, RN notes reviewed, old records reviewed Mode of arrival: ambulatory Limitations: no limitations - History of Present Illness Initial Comments: QN-68 male to ER for severe anxiety shaking Sleep, recently on anxiolysis or antidepressant medication, patient is not homicidal or suicidal denies drugs or alcohol but has been pacing not sleeping feels very anxious here in the ER with intrusive thoughts This is a 5-year-old male to the ER for evaluation of severe anxiety patient has been dealing with significant anxiety for a few days now but it was much worse tonight. Patient is not homicidal or suicidal no drugs or alcohol does not feel a harm to himself but states that he cannot deal with his current stress and anxiety, patient does have a psychiatry appointment this week MD Complaint: anxiety, heart racing -: days(s) Symptoms: dyspnea, palpitations Place: home Previous History of Same: Yes Quality: constant Provoking factors: emotional stress, medication change Improves With: nothing Associated symptoms: palpitations - Related Data Home Medications: Home Medications Medication Instructions Recorded Confirmed Cholecalciferol [Vitamin D3 (25 1,000 mcg PO DAILY 09/17/22 07/09/23 Mcg = 1000 Iu)] Levothyroxine Sodium 150 mcg PO QAM 09/17/22 07/09/23 [place]-3/Dha/Epa/Fish Oil [Fish Oil 1 cap PO DAILY 09/17/22 07/09/23 1,000 mg Softgel] Zinc Gluconate [Zinc] 50 mg PO DAILY 09/17/22 07/09/23 Acetylcysteine [Nac] 500 mg PO DAILY 07/09/23 07/09/23 Albuterol Inhaler [Ventolin Hfa 1 - 2 puff INHALATION RT-Q6H PRN 07/09/23 07/09/23 Inhaler] Atorvastatin [Lipitor] 80 mg PO DAILY 07/09/23 07/09/23 Citalopram Hydrobromide [CeleXA] 2.5 mg PO DAILY 07/09/23 07/09/23 Ezetimibe [Zetia] 10 mg PO DAILY 07/09/23 07/09/23 Fluticasone Nasal [place] [Flonase 1 - 2 spray EA NOSTRIL DAILY PRN 07/09/23 07/09/23 Nasal [place]] Previous Rx's Medication Instructions Recorded Aspirin 81 mg PO DAILY #30 tab 09/08/21 Clopidogrel [Plavix] 75 mg PO DAILY #30 tab 09/08/21 LORazepam [Ativan] 1 mg PO TID 3 Days #9 tab 01/03/24 Allergies/Adverse Reactions: Allergies Allergy/AdvReac Type Severity Reaction Status Date / Time No Known Allergies Allergy Verified 01/03/24 01:41 Review of Systems ROS Statement: Those systems with pertinent positive or pertinent negative responses have been documented in the HPI. ROS Other: All systems not noted in ROS Statement are negative. Past Medical History Past Medical History: CVA/TIA, Hearing Disorder / Deafness, Hyperlipidemia, Thyroid Disorder Additional Past Medical History / Comment(s): Hx TIA with no residual(date unknown). Hypothyroidism. Diverticular disease. Hx Shingles on face recently, now recovered. Hard of hearing, has hearing aids, wears them infrequently.dizziness History of Any Multi-Drug Resistant Organisms: None Reported Past Surgical History: Cholecystectomy, Heart Catheterization, Orthopedic Surgery Additional Past Surgical History / Comment(s): Left foot surgery. Past Anesthesia/Blood Transfusion Reactions: No Reported Reaction Past Psychological History: Anxiety Smoking Status: Never smoker Past Alcohol Use History: None Reported, Rare Past Drug Use History: None Reported - Past Family History Mother Family Medical History: Cancer Additional Family Medical History / Comment(s): Breast cancer. Phlebetis. Sister(s) Family Medical History: Cancer Additional Family Medical History / Comment(s): Brain cancer. Daughter(s) Family Medical History: Deep Vein Thrombosis (DVT) Additional Family Medical History / Comment(s): Daughter from lupus nephritis/pancreatic and renal failure Father Family Medical History: Myocardial Infarction ([place]) Additional Family Medical History / Comment(s): Father of a massive [place] at the age of 57 yrs. General Exam Limitations: no limitations General appearance: anxious Head exam: Present: atraumatic, normocephalic, normal inspection Eye exam: Present: normal appearance, PERRL, EOMI. Absent: scleral icterus, conjunctival injection, periorbital swelling ENT exam: Present: normal exam, mucous membranes moist Neck exam: Present: normal inspection. Absent: tenderness, meningismus, lymphadenopathy Respiratory exam: Present: normal lung sounds bilaterally. Absent: respiratory distress, wheezes, rales, rhonchi, stridor Cardiovascular Exam: Present: regular rate, normal rhythm, normal heart sounds. Absent: systolic murmur, diastolic murmur, rubs, gallop, clicks GI/Abdominal exam: Present: soft, normal bowel sounds. Absent: distended, tenderness, guarding, rebound, rigid Extremities exam: Present: normal inspection, full ROM, normal capillary refill. Absent: tenderness, pedal edema, joint swelling, calf tenderness Back exam: Present: normal inspection Neurological exam: Present: alert, oriented X3, CN II-XII intact Psychiatric exam: Present: normal affect, normal mood Skin exam: Present: warm, dry, intact, normal color. Absent: rash Course Vital Signs 01/03/24 01/03/24 01:41 07:05 Temperature 97.9 F 97.8 F Pulse Rate 74 76 Respiratory 16 16 Rate Blood Pressure 124/77 124/84 O2 Sat by Pulse 97 97 Oximetry - Reevaluation(s) Reevaluation #1: 01/03/24 06:19 QN is completed by myself Dr. Hickey Reevaluation #2: 01/03/24 06:46 Patient symptoms improved here in the ER Reevaluation #3: 01/03/24 06:46 Patient informed of results and questions answered Reevaluation #4: Was pt. sent in by a medical professional or institution (, PA, CURRICULUM DEVELOPER, urgent care, hospital, or [place] health care facility...) When possible be specific @ -no Did you speak to anyone other than the patient for history (EMS, parent, family, police, friend...)? What history was obtained from this source @ -no Did you review nursing and triage notes (agree or disagree)? Why? @ -agree Are old charts reviewed (outside hosp., previous admission, EMS record, old EKG, old radiological studies, urgent care reports/EKG's, [place] health [facility] facility records)? Report findings @ -yes Differential Diagnosis (chest pain, altered mental status, abdominal pain women, abdominal pain men, vaginal bleeding, weakness, fever, dyspnea, syncope, headache, dizziness, GI bleed, back pain, seizure, CVA, palpatations, mental health, musculoskeletal)? @ -prior EKG interpreted by me (3pts min.). @ -no X-rays interpreted by me (1pt min.). @ -no CT interpreted by me (1pt min.). @ -no U/S interpreted by me (1pt. min.). @ -no What testing was considered but not performed or refused? (CT, X-rays, U/S, labs)? Why? @ -none What meds were considered but not given or refused? Why? @ -none Did you discuss the management of the patient with other professionals (professionals i.e. Dr., PA, CURRICULUM DEVELOPER, lab, RT, psych nurse, social media coordinator, hourly shift, teacher, president and chief commercial officer, case packer)? Give summary @ -no Was smoking cessation discussed for >3mins.? @ -no Was critical care preformed (if so, how long)? @ -no Were there social determinants of health that impacted care today? How? (Homelessness, low income, unemployed, alcoholism, drug addiction, transportation, low edu. Level, literacy, decrease access to med. care, custodial, rehab)? @ -none Was there de-escalation of care discussed even if they declined (Discuss DNR or withdrawal of care, Hospice)? DNR status @ -no What co-morbidities impacted this encounter? (DM, HTN, Smoking, COPD, CAD, Cancer, CVA, ARF, Chemo, Hep., AIDS, mental health diagnosis, sleep apnea, morbid obesity)? @ -none Was patient admitted / discharged? Hospital course, mention meds given and route, prescriptions, significant lab abnormalities, going to OR and other pertinent info. @ - 68 male to ER for evaluation today. Patient presents today for evaluation of significant anxiety attack and panic patient feels better here in the ER not homicidal or suicidal and can be discharged home Discharge Undiagnosed new problem with uncertain prognosis? @ -no Drug Therapy requiring intensive monitoring for toxicity (Heparin, Nitro, Insulin, Cardizem)? @ -no Were any procedures done? @ -no Diagnosis/symptom? @ -Acute anxiety Acute, or Chronic, or Acute on Chronic? @ -Acute Uncomplicated (without systemic symptoms) or Complicated (systemic symptoms)? @ -Complicated Side effects of treatment? @ -no Exacerbation, Progression, or Severe Exacerbation? @ -exacerbation Poses a threat to life or bodily function? How? (Chest pain, [place], [place], pneumonia, PE, COPD, DKA, ARF, appy, cholecystitis, CVA, Diverticulitis, Homicidal, Suicidal, threat to staff... and all critical care pts) @ -yes inc age Medical Decision Making - Medical Decision Making 68 male to ER for evaluation today. Patient presents today for evaluation of significant anxiety attack and panic patient feels better here in the ER not homicidal or suicidal and can be discharged home Disposition Clinical Impression: Acute anxiety, Panic attack Disposition: HOME SELF-CARE Condition: Fair Instructions (If sedation given, give patient instructions): Generalized Anxiety Disorder (ED) Prescriptions: LORazepam [Ativan] 1 mg PO TID 3 Days #9 tab Is patient prescribed a controlled substance at d/c from ED?: No Referrals: Antwon Fuentes MD [Primary Care Provider] - 1-2 days
[2024-01-03] MEDS: LORazepam 1 MG TAB PO STA ×2 (06:02→07:10)
[2024-01-03 07:06] VITALS: BP 124/84; PULSE 76; TEMP 97.8
== END 2024-01-03 07:11 | disposition home or self-care (01) ==
LOC: EC 01:29
CPT/HCPCS: 99283